=== PATIENT | female | born 1955 | race Caucasian/White ===

== ENCOUNTER 2016-12-29 12:51 | Inpatient (IN) | payer MEDICARE, OTHER ==
[~2016-12-29] VITALS: Ht 152.4 cm; Wt 62.4 kg
[2016-12-29] MEDS ORDERED: FAMOTIDINE 20 MG INJ IV STA (13:23)
[2016-12-29] MEDS ORDERED: SOD CHLORIDE 0.9% 1,000 ML IV STA (13:23)
[2016-12-29] MEDS ORDERED: KETOROLAC 30 MG INJ IV STA (13:23)
[2016-12-29] MEDS ORDERED: ONDANSETRON 4 MG INJ IV STA (13:23)
[2016-12-29 13:32] LABS: ADD SCAN DIFF NO
[2016-12-29 13:34] LABS: ABNORMAL IP MESSAGE 1; BASOPHILS % 0.2 % (0.0-2.0); HEMATOCRIT 33.8 % (37.0-47.0); HEMOGLOBIN 10.7 g/dl (12.0-16.0); LYMPHOCYTES # 1.1 10^3/ul (0.8-2.9); MEAN CORPUSCULAR HEMOGLOBIN 28.5 pg (29.0-33.0); MEAN CORPUSCULAR HGB CONC 31.7 g/dl (32.0-37.0); MEAN CORPUSCULAR VOLUME 89.9 fl (82.0-101.0); MEAN PLATELET VOLUME 10.8 fl (7.4-10.4); MONOCYTE # 0.7 10^3/ul (0.3-0.9); MONOCYTES % 3.1 % (0.0-11.0); NEUTROPHIL # 17.6 10^3/ul (1.6-7.5); NEUTROPHILS % 84.7 % (39.0-77.0); PLATELET COUNT 213 10^3/UL (140-415); RED BLOOD COUNT 3.76 10^6/ul (4.20-5.40); RED CELL DISTRIBUTION WIDTH 14.5 % (11.5-14.5); WHITE BLOOD COUNT 20.9 10^3/ul (4.8-10.8)
[2016-12-29 13:52] LABS: ALBUMIN 3.8 g/dl (3.3-4.9); ALBUMIN/GLOBULIN RATIO 1.05; CALCIUM 8.7 mg/dl (8.4-10.2); CREATININE 2.73 mg/dl (0.44-1.00); TOTAL PROTEIN 7.4 g/dl (6.1-8.1)
[2016-12-29 13:55] LABS: POTASSIUM 5.1 mmol/L (3.5-5.1)
[2016-12-29] MEDS ORDERED: SIMV40TA2 PO (14:09)
[2016-12-29] MEDS ORDERED: PROM25TA14 PO (14:10)
[2016-12-29] MEDS ORDERED: OMEP20CA16 PO (14:10)
[2016-12-29 15:24] LABS: ADD UMIC YES; URINE BILIRUBIN (Dip) NEGATIVE (NEGATIVE); URINE BLOOD (Dip) NEGATIVE (NEGATIVE); URINE COLOR YELLOW (YELLOW); URINE GLUCOSE (Dip) NEGATIVE (NEGATIVE); URINE KETONES (Dip) NEGATIVE (NEGATIVE); URINE LEUKOCYTE ESTERASE (Dip) NEGATIVE (NEGATIVE); URINE NITRITE (Dip) NEGATIVE (NEGATIVE); URINE TOTAL PROTEIN (Dip) 1+ (NEGATIVE); URINE UROBILINOGEN (Dip) 0.2 E.U./dL (0.1-1.0)
[2016-12-29 15:55] LABS: URINE RBCS NONE SEEN /HPF (0)
[2016-12-29] MEDS ORDERED: CEFTRIAXONE 1 GM/50 ML (PMX) 50 ML IVPB ONE (16:00)
--- NOTE | 2016-12-29 16:02 | RADRPT ---
PROCEDURE: CT Abdomen and Pelvis without contrast CLINICAL INDICATION: Right flank pain TECHNIQUE: Transaxial images were obtained through the abdomen and pelvis on a multi-slice scanner without the intravenous contrast administration. No oral contrast had previously been given. Sagit debra and coronal re-formations were subsequently reconstructed. One or more of the following dose reduction techniques were used: - Automated exposure control. - Adjustment of the mA and/or kV according to patient size. - Use of iterative reconstruction technique. Radiation dose: CTDIvol = 7.11 mGy; DLP = 401.36 mGy-cm. COMPARISON: No prior studies are available for comparison. FINDINGS: Lung bases: Discoid atelectatic changes seen at both lung bases. Liver: The liver is borderline enlarged but no focal lesion is identified. Gallbladder: The gallbladder is distended. A small stone is seen a gravity 8 within the gallbladder . The gallbladder wall appears mildly thickened. Bile ducts: The common bile duct is dilated to 1.1 cm through the head of the pancreas. No choledoc holith is identified Pancreas: Appears normal with no mass or inflammation evident. Spleen: Normal in size with no focal lesion. Adrenals: Normal with no mass identified. Kidneys, ureters and bladder: The right kidney is quite small without hydronephrosis or intra renal calcification. Two 2 mm nonobstructing nephroliths are seen in the superior pole right kidney and t he kidney is lobulated in contour compatible with cortical scarring but there is no hydronephrosis. The ureters are normal in caliber and no ureteroliths are identified. The bladder is suboptimally di stended giving the wall a mildly thickened appearance. Reproductive organs: The uterus is absent. No adnexal mass is evident. Stomach and bowel: There is a small hiatal hernia. Surgical clips are seen in the region of the sto mach. There is no evidence of small bowel obstruction. Substantial stool is seen within the colon. There is dilatation of the cecum and ascending colon as well as the proximal transverse colon with thickening of the bowel wall along with intramural air identified. Appendix: The vermiform appendix is not identified. Peritoneum: There is considerable stranding within the omentum in the region of the hepatic flexure of the colon and gallbladder. No free intraperitoneal fluid or air is identified. Aorta: There is atherosclerotic vascular calcification but no abdominal aortic aneurysm is evident. IVC: Unremarkable. Lymph nodes: No pathologically enlarged nodes are identified. Osseous structures: The osseous elements appear intact. A 5 mm central posterior disk protrusion is seen at L5-S1. IMPRESSION: 1. There is stool distension of the cecum, ascending and proximal transverse colon with bowel wall thickening at the hepatic flexure and proximal transverse colon with intramural air. Differential p ossibilities include ischemic bowel as well as a benign etiologies. No portal air is identified. Cl inical correlation is indicated. There is no evidence of bowel obstruction. There is a hiatal herni a and evidence of previous gastric surgery. 2. The gallbladder is distended, there is cholelithiasis in the gallbladder wall appears thickened r aising the possibility of cholecystitis. 3. The common bile duct is dilated to 1.1 cm through the head of the pancreas. No choledocholith i s evident and no pancreatic pathology is noted. 4. Extensive stranding seen to the omentum in the region of the hepatic flexure and gallbladder com patible with edema and inflammatory change. 5. There is no free intraperitoneal fluid or air. 6. Atrophic right kidney without hydronephrosis. The left kidney is normal in size with cortical s carring and with two 2 mm nonobstructing nephroliths within the superior pole. There is no hydronep hrosis. 7. Borderline hepatomegaly 8. 5 mm central posterior disk protrusion at L5-S1. Findings of right colonic bowel wall thickening with intramural air for which ischemia cannot be exc luded along with possible cholecystitis were telephoned by Robby Montoya MD to Dr. Panda on 12/13 at 1550 hours. Physician Tung Date Time Electronically viewed and signed by Physician Tung on 12/29/2016 16:01 /
[2016-12-29] MEDS ORDERED: IODIXANOL LOCM 50 ML BTL ONE (16:06)
[2016-12-29] MEDS ORDERED: SOD CHLORIDE 0.9% 100 ML ONE (16:06)
[2016-12-29] MEDS ORDERED: IODIXANOL LOCM 100 ML BTL ONE (16:06)
[2016-12-29] MEDS ORDERED: morphine 10 MG INJ IV ONE (16:30)
[2016-12-29] MEDS ORDERED: SODIUM CHLORIDE 0.9% 1L BAG IV* STA (17:08)
--- NOTE | 2016-12-29 17:13 | RADRPT ---
PROCEDURE: CT angiogram of the abdomen and pelvis with bilateral lower extremity runoff and with 3 -D reconstructions CLINICAL INDICATION: r/o ischemic colitis TECHNIQUE: CT angiogram of the abdomen and pelvis was performed on a multislice CT scanner . The patient was scanned after administration of intravenous contrast. Sagittal and coronal reformatted images were obtained from the axial source images. 3D MIP reformatted images were also created from the axial source images. DLP 785.95 mGycm CTDI vol 7.62, 7.66 mGy COMPARISON: CT abdomen/pelvis from 12/29/2016 at 15:22 hours FINDINGS: ANGIOGRAM FINDINGS: There is no acute dissection or aneurysm of the abdominal aorta. The celiac, SMA, and ANYA are widely patent. The right renal artery is widely patent. There is moderate to severe narrowing of the proximal left renal artery. Common, internal and external iliac arteries are patent bilaterally. RIGHT LOWER EXTREMITY: The [employer]PARTMENT, SFA, and profunda arteries are widely patent. The popliteal artery is widely patent. Infrapopliteal vessels are widely patent and there is good three-vessel runoff to the level of the a nkle. LEFT LOWER EXTREMITY: The [employer] DEPARTMENT, SFA, and profunda arteries are widely patent. The popliteal artery is widely patent. Infrapopliteal vessels are widely patent and there is good three-vessel runoff to the level of the a nkle. ANCILLARY FINDINGS: There is a small hiatal hernia. Surgical changes are noted at the gastroesophageal junction. The gallbladder is again noted to be distended and demonstrate wall thickening. There is prominent m esenteric stranding just below the inferior extent of the gallbladder, adjacent to the proximal bauer sverse colon The common bile duct is dilated to 14 mm and terminates abruptly at the pancreatic hea d. There is mild intrahepatic biliary ductal dilatation. There are colonic diverticula without evidence of diverticulitis. IMPRESSION: The celiac, SMA, and ANYA are widely patent. No evidence of mesenteric ischemia. Markedly dilated common bile duct measuring up to 14 mm in diameter which abruptly terminates at the pancreatic head. There is also mild intrahepatic biliary ductal dilatation as well as marked diste nsion of the gallbladder. Findings suggest an obstructing lesion at the distal common bile duct whi ch may be a choledocholith, pancreatic lesion, or an ampullary lesion. An MRCP is recommended for f urther evaluation. Small hiatal hernia and postsurgical changes at the gastroesophageal junction. Colonic diverticula without evidence of diverticulitis. RPTAT: EE Perfecto Ritchie Physician Date Time Electronically viewed and signed by Perfecto Ritchie Physician on 12/29/2016 17:13 /
--- NOTE | 2016-12-29 17:50 | RADRPT ---
PROCEDURE: US Abdomen (right upper quadrant). CLINICAL INDICATION: Right upper quadrant abdomen pain. TECHNIQUE: Multiple real-time longitudinal and transverse images of the right upper quadrant of th e abdomen were acquired utilizing a curved array transducer. Images were reviewed on a high-resoluti on PACS workstation. COMPARISON: CT scan of the abdomen and pelvis done earlier the same day. FINDINGS: The liver is normal in size and normal in echogenicity. There is no focal hepatic lesion. Color Doppler and pulsed Doppler sonography demonstrate normal a ntegrade flow in the portal vein. The gallbladder is distended and there is mild thickening of the wall measuring 4 mm. There is no s urrounding fluid. No gallstones are visualized. The bile ducts are dilated with the common bile duct measuring 14.5 mm in diameter. The pancreas is not visualized due to overlying bowel gas. No free fluid is present. The right kidney is not visualized. IMPRESSION: 1. Distended gallbladder with mild wall thickening. No gallstones. This may indicate acalculous c holecystitis. Clinical correlation is advised. 2. Pancreas not visualized. 3. Dilated common bile duct measuring 14.5 mm. Correlation with MRCP should be considered. 4. Right kidney not visualized. RPTAT: QQ .Azeem Bergman MD, Date Time Electronically viewed and signed by .Azeem Bergman MD, on 12/29/2016 17:49 .R/
--- NOTE | 2016-12-29 18:00 | RADRPT ---
PROCEDURE: XR Chest 1 View. CLINICAL INDICATION: Shortness of breath. TECHNIQUE: AP view of the chest was obtained. COMPARISON: None. FINDINGS: The cardiomediastinal silhouette is within normal limits. Elevation of the right hemidiaphragm is id entified. Diffuse mild interstitial prominence is seen in both lungs. Atelectasis is noted at the lung bases. No consolidations are identified. No pneumothorax is seen. Osseous structures are inta ct. IMPRESSION: Mild elevation of the right hemidiaphragm. Hypoinflated lungs with atelectasis at the lung bases. Diffuse mild interstitial prominence in both lungs. Interstitial prominence could be chronic. RPTAT: AA .Claude Zapata MD, Date Time Electronically viewed and signed by .Claude Zapata MD, MD on 12/29/2016 18:00 .P/
[2016-12-29] MEDS ORDERED: SOD CHLORIDE 0.9% 1,000 ML IV SCH (18:04)
--- NOTE | 2016-12-29 18:14 | ERA ---
ER Documentation Chief Complaint Date/Time DATE: 12/29/16 TIME: 18:08 Chief Complaint RUQ PAIN WITH RADIATING PAIN TO THE MID-ABD AREA, +SOB&N&V HPI This is a 61-year-old female who presents to the emergency room for evaluation of abdominal pain. The patient states that she is on abdominal pain for the past 2 days this is progressively gotten worse today. She states that she has been feeling nauseous and has had 2 episodes of vomiting. Patient localized the pain to the right flank and states it is an aching sharp pain with radiation into her groin. The patient does state that she has a history of gallstones, and states that she came to the emergency room today for evaluation of her symptoms. She denies any aggravating or relieving factors for her pain and denies any vomiting blood, or blood in the stool ROS All systems reviewed and are negative except as per history of present illness. Medications Home Meds Reported Medications Promethazine Hcl* (Phenergan*) 25 Mg Tablet, 25 MG PO Q6H Y for NAUSEA AND/OR VOMITING, TAB 12/29/16 Omeprazole* (Omeprazole*) 20 Mg Capsule.dr, 20 MG PO DAILY, #30 CAP 12/29/16 Simvastatin* (Zocor*) 40 Mg Tablet, 40 MG PO QHS, #30 TAB 12/29/16 Allergies Allergies: Coded Allergies: Penicillins (Verified Allergy, Unknown, 12/29/16) diphenhydramine (Verified Allergy, Unknown, 12/29/16) tamsulosin (Verified Allergy, Unknown, 12/29/16) PMhx/Soc History of Surgery: Yes (BACK, NECK, APPY) Hx Miscellaneous Medical Probl: Yes (KIDNEY, GALLBLADDER) Hx Alcohol Use: No Hx Substance Use: No Hx Tobacco Use: Yes Smoking Status: Current every day smoker Physical Exam Vitals Vital Signs Date Time Temp Pulse Resp B/P Pulse Ox O2 Delivery O2 Flow Rate FiO2 12/29/16 13:02 97.5 86 20 112/56 100 Physical Exam INITIAL VITAL SIGNS: Reviewed by me GENERAL: The patient is frail-appearing elderly female, mild distress HEENT: Dry mucous membranes, pupils equal, round, and reactive to light. EOMI. There is no scleral icterus. NECK: C-spine is soft and supple, there is no meningismus. There is no cervical lymphadenopathy. LUNGS: Clear to auscultation bilaterally. There are no rales, wheezes or rhonchi. HEART: Regular rate and rhythm, no murmurs, clicks, rubs or gallops. ABDOMEN: Positive Villarreal sign there are bowel sounds in all four quadrants. No rebound or guarding. EXTREMITIES: There is no peripheral cyanosis or edema. No focal swelling or erythema. NEUROLOGICAL: The patient moves all four extremities with 5/5 strength. Cranial nerves II - XII are intact. Normal gait. Alert and oriented SKIN: There is no apparent rash or petechiae. HEME/LYMPHATIC: There is no evidence of excessive bruising or lymphedema. PSYCHIATRIC: The patient does not appear anxious or depressed. Result Diagram: 12/29/16 1327 12/29/16 1327 Results 24 hrs Laboratory Tests Test 12/29/16 13:27 12/29/16 15:00 White Blood Count 20.910^3/ul Red Blood Count 3.7610^6/ul Hemoglobin 10.7g/dl Hematocrit 33.8% Mean Corpuscular Volume 89.9fl Mean Corpuscular Hemoglobin 28.5pg Mean Corpuscular Hemoglobin Concent 31.7g/dl Red Cell Distribution Width 14.5% Platelet Count 23766^3/UL Mean Platelet Volume 10.8fl Neutrophils % 84.7% Lymphocytes % 5.0% Monocytes % 3.1% Eosinophils % 0.0% Basophils % 0.2% Nucleated Red Blood Cells % 0.0/100WBC Neutrophils # 17.610^3/ul Lymphocytes # 1.110^3/ul Monocytes # 0.710^3/ul Eosinophils # 0.010^3/ul Basophils # 0.010^3/ul Nucleated Red Blood Cells # 0.010^3/ul Sodium Level 133mmol/L Potassium Level 5.1mmol/L Chloride Level 104mmol/L Carbon Dioxide Level 16mmol/L Anion Gap 18 Blood Urea Nitrogen 63mg/dl Creatinine 2.73mg/dl Glucose Level 91mg/dl Calcium Level 8.7mg/dl Total Bilirubin 0.0mg/dl Direct Bilirubin 0.00mg/dl Indirect Bilirubin 0.0mg/dl Aspartate Amino Transf (AST/SGOT) 42IU/L Alanine Aminotransferase (ALT/SGPT) 45IU/L Alkaline Phosphatase 215IU/L Total Protein 7.4g/dl Albumin 3.8g/dl Globulin 3.60g/dl Albumin/Globulin Ratio 1.05 Lipase 78U/L Urine Color YELLOW Urine Clarity CLEAR Urine pH 5.5 Urine Specific [place] 1.020 Urine Ketones NEGATIVE Urine Nitrite NEGATIVE Urine Bilirubin NEGATIVE Urine Urobilinogen 0.2 E.U./dL Urine Leukocyte Esterase NEGATIVE Urine Microscopic RBC NONE SEEN/HPF Urine Microscopic WBC 0-2/HPF Urine Amorphous Urates MODERATE Urine Hemoglobin NEGATIVE Urine Glucose NEGATIVE% Urine Total Protein 1+ Current Medications Medications (Trade) Dose Ordered Sig/Michelle Route PRN Reason Start Time Stop Time Status Last Admin Dose Admin Sodium Chloride (NS) 1,000 ml @ 1,000 mls/hr Q1H STAT IV 12/29/16 13:23 12/29/16 14:22 DC 12/29/16 13:31 Ondansetron HCl (Zofran Inj) 4 mg ONCE STAT IV 12/29/16 13:23 12/29/16 13:24 DC 12/29/16 13:31 Famotidine (Pepcid Iv) 20 mg ONCE STAT IV 12/29/16 13:23 12/29/16 13:24 DC 12/29/16 13:31 Ketorolac Tromethamine 30 mg 30 mg ONCE STAT IV 12/29/16 13:23 12/29/16 13:24 DC 12/29/16 13:31 Ceftriaxone Sodium (Rocephin) 50 ml @ 100 mls/hr ONCE ONCE IVPB 12/29/16 16:00 12/29/16 16:29 DC 12/29/16 15:45 Morphine Sulfate (morphine) 6 mg ONCE ONCE IV 12/29/16 16:30 12/29/16 16:31 DC 12/29/16 16:08 IV Flush 10 ml 10 ml STK-MED ONCE .ROUTE 12/29/16 16:06 12/29/16 16:07 DC 12/29/16 16:32 Sodium Chloride (NS) 100 ml @ ud STK-MED ONCE .ROUTE 12/29/16 16:06 12/29/16 16:07 DC 12/29/16 16:33 Iodixanol (Visipaque Locm) 100 ml STK-MED ONCE .ROUTE 12/29/16 16:06 12/29/16 16:07 DC 5/17/17 16:34 Iodixanol (Visipaque Locm) 50 ml STK-MED ONCE .ROUTE 12/29/16 16:06 12/29/16 16:07 DC Sodium Chloride 1760 ml 1,760 ml BOLUS OVER 2 HOURS STAT IV* 12/29/16 17:08 12/29/16 17:10 DC Metronidazole 100 ml @ 100 mls/hr ONCE ONCE IVPB 12/29/16 18:30 12/29/16 19:29 Sodium Chloride (NS) 1,000 ml @ 80 mls/hr [id number] IV 12/29/16 18:04 12/30/16 06:33 Ondansetron HCl (Zofran Inj) 4 mg BRIDGE ORDER PRN IV NAUSEA AND/OR VOMITING 12/29/16 18:30 12/30/16 18:29 Acetaminophen (Tylenol Tab) 650 mg ER BRIDGE PRN PO MILD PAIN/FEVER 12/29/16 18:30 12/30/16 18:29 Procedures/MDM CT abdomen pelvis without: 1. There is stool distension of the cecum, ascending and proximal transverse colon with bowel wall thickening at the hepatic flexure and proximal transverse colon with intramural air. Differential possibilities include ischemic bowel as well as a benign etiologies. No portal air is identified. Clinical correlation is indicated. There is no evidence of bowel obstruction. There is a hiatal hernia and evidence of previous gastric surgery. 2. The gallbladder is distended, there is cholelithiasis in the gallbladder wall appears thickened raising the possibility of cholecystitis. 3. The common bile duct is dilated to 1.1 cm through the head of the pancreas. No choledocholith is evident and no pancreatic pathology is noted. 4. Extensive stranding seen to the omentum in the region of the hepatic flexure and gallbladder compatible with edema and inflammatory change. 5. There is no free intraperitoneal fluid or air. 6. Atrophic right kidney without hydronephrosis. The left kidney is normal in size with cortical scarring and with two 2 mm nonobstructing nephroliths within the superior pole. There is no hydronephrosis. 7. Borderline hepatomegaly 8. 5 mm central posterior disk protrusion at L5-S1. CT angiography:The celiac, SMA, and ANYA are widely patent. No evidence of mesenteric ischemia. Markedly dilated common bile duct measuring up to 14 mm in diameter which abruptly terminates at the pancreatic head. There is also mild intrahepatic biliary ductal dilatation as well as marked distension of the gallbladder. Findings suggest an obstructing lesion at the distal common bile duct which may be a choledocholith, pancreatic lesion, or an ampullary lesion. An MRCP is recommended for further evaluation. Small hiatal hernia and postsurgical changes at the gastroesophageal junction. Colonic diverticula without evidence of diverticulitis. Chest X-ray 1V Interpreted by me: Soft Tissue: No acute abnormalities Bones: No acute abnormalities Mediastinum/Cardiac Silhouette/Lungs: [No acute abnormalities] Ultrasound gallbladder: 1. Distended gallbladder with mild wall thickening. No gallstones. This may indicate acalculous cholecystitis. Clinical correlation is advised. 2. Pancreas not visualized. 3. Dilated common bile duct measuring 14.5 mm. Correlation with MRCP should be considered. 4. Right kidney not visualized. This is a 61-year-old female who presents to the emergency room for evaluation of abdominal pain. When I evaluated her this patient did have right-sided CVAT and a positive Villarreal sign. A CT of the abdomen and pelvis was obtained with some concern for possible intramural air, and gallbladder wall thickening. CT Martina was obtained to rule out ischemic colitis and CT angiography does not reveal any intraluminal air or ischemic colitis. Ultrasound did confirm suspicion of choledocholithiasis with a dilation of the common bile duct. The patient does have a leukocytosis and mild tachycardia and does meet sepsis criteria. She was given 30 cc/kg of IV normal saline. She was started on Rocephin early as we were waiting for blood cultures, and her 3 hour chris was approaching. The patient had blood cultures done and was started on Flagyl as well. I have contacted our general surgeon, Dr. Johnson who agrees to consult on this patient. I contacted her primary admitting physician, Dr. Champion and have discussed the case with her and need for possible ERCP. She verbalized understanding and is okay with her plan of care for admission to [facility] at this time. This patient is hemodynamically stable and does not need vasopressors. Critical Care: Excluding all billable procedures Time: 34 minutes Treatments/Evaluations: Close monitoring and treatment of unstable vital signs, cardiorespiratory, and neurologic status, while maintaining tight balance of fluid, respiratory, and cardiac interventions. Departure Diagnosis: Primary Impression: Sepsis Additional Impressions: Choledocholithiasis with acute cholecystitis Renal insufficiency Normocytic anemia Condition: Fair VIVIANA LONG DO December 29, 2016 18:14
[2016-12-29] MEDS ORDERED: ACETAMINOPHEN 325 MG TAB PO PRN (18:30)
[2016-12-29] MEDS ORDERED: ONDANSETRON 4 MG INJ IV PRN (18:30)
[2016-12-29] MEDS ORDERED: metroNIDAZOLE 500 MG/NS (PMX) 100 ML IVPB ONE (18:30)
--- NOTE | 2016-12-29 18:37 | HP ---
Date/Time of Note Date/Time of Note DATE: 12/29/16 TIME: 18:21 Assessment/Plan VTE Prophylaxis VTE Prophylaxis Intervention: SCD's Assessment/Plan Assessment/Plan 61-year-old female who presents to the ER with right-sided abdominal pain, managed as follows 1. Cholelithiasis with choledocholithiasis 2. Acute renal failure rule out chronic kidney disease 3. Leukocytosis secondary to #1 rule out acute cholecystitis 4. Tobacco user Plan: 1 Admit to [facility], MRCP is not indicated at this time as we have CT confirmation of choledocholithiasis, I believe patient should proceed with ERCP. We will get GI consultation 2. General surgical consultation has been obtained by ER 3. Empiric antibiotics for cholecystitis 4. Smoking Cessation Therapy: Pt. was lectured for greater than 3 minutes on the health risks of continued smoking and the benefits of cessation and this will continue to be reinforced throughout hospitalization. 5. Supportive care and pain control. Plan of care has been discussed with patient questions answered. Further interventions per clinical course. Prophylaxis: SCDs and PPI HPI/ROS Admit Date/Time Admit Date/Time December 29, 2016 Hx of Present Illness PRESENTING COMPLAINT: abd pain HISTORY OF PRESENTING COMPLAINT: This is a pleasant 61-year-old female who presents to the ER today with abdominal pain. Pain is located in the epigastric region that has been going on for the last 2 days. Pain is associated with nausea and vomiting, and described as an aching and sharp pain. Patient does have a history of gallstones and she might have a history of renal problems. Pain was relieved by medications given in the emergency room. Patient was worked up extensively by ER doctor, and findings are highly suggestive of cholelithiasis with choledocholithiasis. She is being admitted for further workup and management as well as gastroenterology as well as surgical review. ROS 12 point review of system was done and pertinent findings as noted ROS: CONSTITUTIONAL: denies fever, chills, weight loss, weight gain HEENT: denies headaches, any vertigo, any sore throat or rhinorrhea. Eyes: No double or blurred vision or eye pain. CARDIOVASCULAR: no chest discomfort, chest pain, irregular rhythm, tachycardia or diaphoresis. RESPIRATORY: denies cough or shortness of breath or wheezing. GENITOURINARY: denies dysuria, frequency, urgency or hematuria. MUSCULOSKELETAL: also denies myalgias, arthralgias or edema. SKIN: denies rash or jaundice NEUROLOGIC: denies weakness, dizziness, focal neurological change or headache. PSYCHIATRIC: denies history of depression in the past, any suicidal ideation. substance abuse. ENDOCRINE: denies polyuria, polydipsia or hot or cold intolerance. HEMATOLOGIC: denies history of easy bruising, anemia or eczema. PMH/Family/Social Past Medical History 1. Gallstones 2. Chronic kidney disease likely secondary to kidney stones Past Surgical History 1. Appendectomy 2. Hysterectomy Social History Alcohol Use: none Smoking Status: Current every day smoker Drug Use: none Exam/Review of Systems Vital Signs Vitals VS - Last 72 Hours, by Label Date Time Temp Pulse Resp B/P Pulse Ox O2 Delivery O2 Flow Rate FiO2 12/29/16 13:02 97.5 86 20 112/56 100 Vital Signs Date Time Temp Pulse Resp B/P Pulse Ox O2 Delivery O2 Flow Rate FiO2 12/29/16 13:02 97.5 86 20 112/56 100 Exam Constitutional: alert, oriented, No distress Psych: anxiety Head: normocephalic Eyes: nl conjunctiva, No icteric ENMT: mucosa pink and moist Neck: non-tender, supple Respiratory: clear to auscultation, normal air movement Cardiovascular: regular rate and rhythm, No murmurs/extra sounds Gastrointestinal: bowel sounds, soft, tender (RUQ and epigastrium) Neurological: lethargic, nl mental status Skin: No rash or lesions Labs Result Diagram: 12/29/16 1327 12/29/16 1327 Medications Medications Current Medications Metronidazole 100 ml @ 100 mls/hr ONCE ONCE IVPB ; Start 12/29/16 at 18:30; Stop 12/29/16 at 19:29 Sodium Chloride (NS) 1,000 ml @ 80 mls/hr [id number] IV ; Start 12/29/16 at 18:04 ; Stop 12/30/16 at 06:33 Procedures Procedures Laboratory Tests Test 12/29/16 13:27 12/29/16 15:00 White Blood Count 20.910^3/ul Red Blood Count 3.7610^6/ul Hemoglobin 10.7g/dl Hematocrit 33.8% Mean Corpuscular Volume 89.9fl Mean Corpuscular Hemoglobin 28.5pg Mean Corpuscular Hemoglobin Concent 31.7g/dl Red Cell Distribution Width 14.5% Platelet Count 35080^3/UL Mean Platelet Volume 10.8fl Neutrophils % 84.7% Lymphocytes % 5.0% Monocytes % 3.1% Eosinophils % 0.0% Basophils % 0.2% Nucleated Red Blood Cells % 0.0/100WBC Neutrophils # 17.610^3/ul Lymphocytes # 1.110^3/ul Monocytes # 0.710^3/ul Eosinophils # 0.010^3/ul Basophils # 0.010^3/ul Nucleated Red Blood Cells # 0.010^3/ul Sodium Level 133mmol/L Potassium Level 5.1mmol/L Chloride Level 104mmol/L Carbon Dioxide Level 16mmol/L Anion Gap 18 Blood Urea Nitrogen 63mg/dl Creatinine 2.73mg/dl Glucose Level 91mg/dl Calcium Level 8.7mg/dl Total Bilirubin 0.0mg/dl Direct Bilirubin 0.00mg/dl Indirect Bilirubin 0.0mg/dl Aspartate Amino Transf (AST/SGOT) 42IU/L Alanine Aminotransferase (ALT/SGPT) 45IU/L Alkaline Phosphatase 215IU/L Total Protein 7.4g/dl Albumin 3.8g/dl Globulin 3.60g/dl Albumin/Globulin Ratio 1.05 Lipase 78U/L Urine Color YELLOW Urine Clarity CLEAR Urine pH 5.5 Urine Specific [place] 1.020 Urine Ketones NEGATIVE Urine Nitrite NEGATIVE Urine Bilirubin NEGATIVE Urine Urobilinogen 0.2 E.U./dL Urine Leukocyte Esterase NEGATIVE Urine Microscopic RBC NONE SEEN/HPF Urine Microscopic WBC 0-2/HPF Urine Amorphous Urates MODERATE Urine Hemoglobin NEGATIVE Urine Glucose NEGATIVE% Urine Total Protein 1+ Current Medications Medications (Trade) Dose Ordered Sig/Michelle Route PRN Reason Start Time Stop Time Status Last Admin Dose Admin Sodium Chloride (NS) 1,000 ml @ 1,000 mls/hr Q1H STAT IV 12/29/16 13:23 12/29/16 14:22 DC 12/29/16 13:31 1,000 MLS/HR Ondansetron HCl (Zofran Inj) 4 mg ONCE STAT IV 12/29/16 13:23 12/29/16 13:24 DC 12/29/16 13:31 4 MG Famotidine (Pepcid Iv) 20 mg ONCE STAT IV 12/29/16 13:23 12/29/16 13:24 DC 12/29/16 13:31 20 MG Ketorolac Tromethamine 30 mg 30 mg ONCE STAT IV 12/29/16 13:23 12/29/16 13:24 DC 12/29/16 13:31 30 MG Ceftriaxone Sodium (Rocephin) 50 ml @ 100 mls/hr ONCE ONCE IVPB 12/29/16 16:00 12/29/16 16:29 DC 12/29/16 15:45 100 MLS/HR Morphine Sulfate (morphine) 6 mg ONCE ONCE IV 12/29/16 16:30 12/29/16 16:31 DC 12/29/16 16:08 6 MG IV Flush 10 ml 10 ml STK-MED ONCE .ROUTE 12/29/16 16:06 12/29/16 16:07 DC 12/29/16 16:32 10 ML Sodium Chloride (NS) 100 ml @ ud STK-MED ONCE .ROUTE 12/29/16 16:06 12/29/16 16:07 DC 12/29/16 16:33 50 ML/14 S Iodixanol (Visipaque Locm) 100 ml STK-MED ONCE .ROUTE 12/29/16 16:06 12/29/16 16:07 DC 12/29/16 16:34 100 ML Iodixanol (Visipaque Locm) 50 ml STK-MED ONCE .ROUTE 12/29/16 16:06 12/29/16 16:07 DC Sodium Chloride 1760 ml 1,760 ml BOLUS OVER 2 HOURS STAT IV* 12/29/16 17:08 12/29/16 17:10 DC Metronidazole 100 ml @ 100 mls/hr ONCE ONCE IVPB 12/29/16 18:30 12/29/16 19:29 Sodium Chloride (NS) 1,000 ml @ 80 mls/hr [id number] IV 12/29/16 18:04 12/30/16 06:33 Ondansetron HCl (Zofran Inj) 4 mg BRIDGE ORDER PRN IV NAUSEA AND/OR VOMITING 12/29/16 18:30 12/30/16 18:29 Acetaminophen (Tylenol Tab) 650 mg ER BRIDGE PRN PO MILD PAIN/FEVER 12/29/16 18:30 12/30/16 18:29 PROCEDURE: US Abdomen (right upper quadrant). CLINICAL INDICATION: Right upper quadrant abdomen pain. TECHNIQUE: Multiple real-time longitudinal and transverse images of the right upper quadrant of the abdomen were acquired utilizing a curved array transducer. Images were reviewed on a high-resolution PACS workstation. COMPARISON: CT scan of the abdomen and pelvis done earlier the same day. FINDINGS: The liver is normal in size and normal in echogenicity. There is no focal hepatic lesion. Color Doppler and pulsed Doppler sonography demonstrate normal antegrade flow in the portal vein. The gallbladder is distended and there is mild thickening of the wall measuring 4 mm. There is no surrounding fluid. No gallstones are visualized. The bile ducts are dilated with the common bile duct measuring 14.5 mm in diameter. The pancreas is not visualized due to overlying bowel gas. No free fluid is present. The right kidney is not visualized. IMPRESSION: 1. Distended gallbladder with mild wall thickening. No gallstones. This may indicate acalculous cholecystitis. Clinical correlation is advised. 2. Pancreas not visualized. 3. Dilated common bile duct measuring 14.5 mm. Correlation with MRCP should be considered. 4. Right kidney not visualized. RPTAT: QQ .Azeem Bergman MD, MD Date Time Electronically viewed and signed by .Azeem Bergman MD, MD on 12/29/2016 17:49 .R/ CC: VIVIANA LONG DO PROCEDURE: CT angiogram of the abdomen and pelvis with bilateral lower extremity runoff and with 3-D reconstructions CLINICAL INDICATION: r/o ischemic colitis TECHNIQUE: CT angiogram of the abdomen and pelvis was performed on a multislice CT scanner . The patient was scanned after administration of intravenous contrast. Sagittal and coronal reformatted images were obtained from the axial source images. 3D MIP reformatted images were also created from the axial source images. DLP 785.95 mGycm CTDI vol 7.62, 7.66 mGy COMPARISON: CT abdomen/pelvis from 12/29/2016 at 15:22 hours FINDINGS: ANGIOGRAM FINDINGS: There is no acute dissection or aneurysm of the abdominal aorta. The celiac, SMA, and ANYA are widely patent. The right renal artery is widely patent. There is moderate to severe narrowing of the proximal left renal artery. Common, internal and external iliac arteries are patent bilaterally. RIGHT LOWER EXTREMITY: The [employer], SFA, and profunda arteries are widely patent. The popliteal artery is widely patent. Infrapopliteal vessels are widely patent and there is good three-vessel runoff to the level of the ankle. LEFT LOWER EXTREMITY: The [employer], SFA, and profunda arteries are widely patent. The popliteal artery is widely patent. Infrapopliteal vessels are widely patent and there is good three-vessel runoff to the level of the ankle. ANCILLARY FINDINGS: There is a small hiatal hernia. Surgical changes are noted at the gastroesophageal junction. The gallbladder is again noted to be distended and demonstrate wall thickening. There is prominent mesenteric stranding just below the inferior extent of the gallbladder, adjacent to the proximal transverse colon The common bile duct is dilated to 14 mm and terminates abruptly at the pancreatic head. There is mild intrahepatic biliary ductal dilatation. There are colonic diverticula without evidence of diverticulitis. IMPRESSION: The celiac, SMA, and ANYA are widely patent. No evidence of mesenteric ischemia. Markedly dilated common bile duct measuring up to 14 mm in diameter which abruptly terminates at the pancreatic head. There is also mild intrahepatic biliary ductal dilatation as well as marked distension of the gallbladder. Findings suggest an obstructing lesion at the distal common bile duct which may be a choledocholith, pancreatic lesion, or an ampullary lesion. An MRCP is recommended for further evaluation. Small hiatal hernia and postsurgical changes at the gastroesophageal junction. Colonic diverticula without evidence of diverticulitis. RPTAT: EE Physician David Date Time Electronically viewed and signed by Physician David on 12/29/2016 17:13 RA/ PROCEDURE: CT Abdomen and Pelvis without contrast CLINICAL INDICATION: Right flank pain TECHNIQUE: Transaxial images were obtained through the abdomen and pelvis on a multi-slice scanner without the intravenous contrast administration. No oral contrast had previously been given. Sagittal and coronal re-formations were subsequently reconstructed. One or more of the following dose reduction techniques were used: - Automated exposure control. - Adjustment of the mA and/or kV according to patient size. - Use of iterative reconstruction technique. Radiation dose: CTDIvol = 7.11 mGy; DLP = 401.36 mGy-cm. COMPARISON: No prior studies are available for comparison. FINDINGS: Lung bases: Discoid atelectatic changes seen at both lung bases. Liver: The liver is borderline enlarged but no focal lesion is identified. Gallbladder: The gallbladder is distended. A small stone is seen a gravity 8 within the gallbladder. The gallbladder wall appears mildly thickened. Bile ducts: The common bile duct is dilated to 1.1 cm through the head of the pancreas. No choledocholith is identified Pancreas: Appears normal with no mass or inflammation evident. Spleen: Normal in size with no focal lesion. Adrenals: Normal with no mass identified. Kidneys, ureters and bladder: The right kidney is quite small without hydronephrosis or intra renal calcification. Two 2 mm nonobstructing nephroliths are seen in the superior pole right kidney and the kidney is lobulated in contour compatible with cortical scarring but there is no hydronephrosis. The ureters are normal in caliber and no ureteroliths are identified. The bladder is suboptimally distended giving the wall a mildly thickened appearance. Reproductive organs: The uterus is absent. No adnexal mass is evident. Stomach and bowel: There is a small hiatal hernia. Surgical clips are seen in the region of the stomach. There is no evidence of small bowel obstruction. Substantial stool is seen within the colon. There is dilatation of the cecum and ascending colon as well as the proximal transverse colon with thickening of the bowel wall along with intramural air identified. Appendix: The vermiform appendix is not identified. Peritoneum: There is considerable stranding within the omentum in the region of the hepatic flexure of the colon and gallbladder. No free intraperitoneal fluid or air is identified. Aorta: There is atherosclerotic vascular calcification but no abdominal aortic aneurysm is evident. IVC: Unremarkable. Lymph nodes: No pathologically enlarged nodes are identified. Osseous structures: The osseous elements appear intact. A 5 mm central posterior disk protrusion is seen at L5-S1. IMPRESSION: 1. There is stool distension of the cecum, ascending and proximal transverse colon with bowel wall thickening at the hepatic flexure and proximal transverse colon with intramural air. Differential possibilities include ischemic bowel as well as a benign etiologies. No portal air is identified. Clinical correlation is indicated. There is no evidence of bowel obstruction. There is a hiatal hernia and evidence of previous gastric surgery. 2. The gallbladder is distended, there is cholelithiasis in the gallbladder wall appears thickened raising the possibility of cholecystitis. 3. The common bile duct is dilated to 1.1 cm through the head of the pancreas. No choledocholith is evident and no pancreatic pathology is noted. 4. Extensive stranding seen to the omentum in the region of the hepatic flexure and gallbladder compatible with edema and inflammatory change. 5. There is no free intraperitoneal fluid or air. 6. Atrophic right kidney without hydronephrosis. The left kidney is normal in size with cortical scarring and with two 2 mm nonobstructing nephroliths within the superior pole. There is no hydronephrosis. 7. Borderline hepatomegaly 8. 5 mm central posterior disk protrusion at L5-S1. Findings of right colonic bowel wall thickening with intramural air for which ischemia cannot be excluded along with possible cholecystitis were telephoned by Robby Montoya MD to Dr. Long on 12/29/2016 at 1550 hours. Physician Tung Date Time Electronically viewed and signed by Physician Tung on 12/29/2016 16:01 RH/ CC: VIVIANA LONG BOLATITO M. December 29, 2016 18:32
[2016-12-29 19:30] VITALS: TEMP 98.2
[2016-12-29 19:35] LABS: INR 1.17; PARTIAL THROMBOPLASTIN TIME 41.9 Sec (25.0-35.0); PT RATIO 1.2
[2016-12-29 20:04] VITALS: BP 118/64; RESP 20
[2016-12-29 20:12] VITALS: Ht 152.4 cm; Wt 62.4 kg
[2016-12-29] MEDS: CIPROFLOXACIN 400MG/D5W 200 ML IVPB SCH (20:38)
[2016-12-29] MEDS: DEXTROSE 5%-0.45% NACL 1,000 ML IV SCH (20:38)
[2016-12-29] MEDS: FAMOTIDINE 20 MG TAB PO SCH (20:39)
[2016-12-29] MEDS: DOCUSATE SODIUM 100 MG CAP PO SCH (20:39)
[2016-12-29] MEDS: metroNIDAZOLE 500 MG/NS (PMX) 100 ML IVPB SCH (23:18)
[2016-12-30] MEDS: ALBUTEROL/IPRATROPIUM (NEB) 3 ML AMP HHN PRN ×3 (03:32→18:20)
[2016-12-30] MEDS: metroNIDAZOLE 500 MG/NS (PMX) 100 ML IVPB SCH ×3 (05:14→21:04)
[2016-12-30] MEDS: morphine 2 MG INJ IV PRN ×3 (05:15→16:29)
[2016-12-30] MEDS: DEXTROSE 5%-0.45% NACL 1,000 ML IV SCH (05:18)
[2016-12-30 07:22] VITALS: BP 100/58; RESP 18
[2016-12-30 08:21] LABS: ADD SCAN DIFF NO
[2016-12-30] MEDS: DOCUSATE SODIUM 100 MG CAP PO SCH ×2 (08:24→21:03)
[2016-12-30 08:42] LABS: ABNORMAL IP MESSAGE 1; HEMATOCRIT 29.9 % (37.0-47.0); HEMOGLOBIN 9.3 g/dl (12.0-16.0); MEAN CORPUSCULAR HEMOGLOBIN 28.1 pg (29.0-33.0); MEAN CORPUSCULAR HGB CONC 31.1 g/dl (32.0-37.0); MEAN CORPUSCULAR VOLUME 90.3 fl (82.0-101.0); MEAN PLATELET VOLUME 10.6 fl (7.4-10.4); PLATELET COUNT 191 10^3/UL (140-415); RED BLOOD COUNT 3.31 10^6/ul (4.20-5.40); RED CELL DISTRIBUTION WIDTH 14.7 % (11.5-14.5); WHITE BLOOD COUNT 12.1 10^3/ul (4.8-10.8)
[2016-12-30 09:02] LABS: ALBUMIN 2.6 g/dl (3.3-4.9)
[2016-12-30 09:03] LABS: POTASSIUM 5.1 mmol/L (3.5-5.1)
[2016-12-30 09:05] LABS: ALBUMIN/GLOBULIN RATIO 0.86; CREATININE 2.57 mg/dl (0.44-1.00); TOTAL PROTEIN 5.6 g/dl (6.1-8.1)
[2016-12-30 09:06] LABS: CALCIUM 7.9 mg/dl (8.4-10.2); MAGNESIUM 2.6 mg/dl (1.7-2.5); PHOSPHORUS 6.1 mg/dl (2.5-4.9); URIC ACID 6.2 mg/dl (3.1-7.9)
[2016-12-30 09:07] LABS: CHOL/HDL RATIO 2.1 RATIO
[2016-12-30 10:15] LABS: LYMPHOCYTES # 0.8 10^3/ul (0.8-2.9); MONOCYTE # 0.6 10^3/ul (0.3-0.9)
--- NOTE | 2016-12-30 11:14 | PN ---
DATE: 12/29/2016 SUBJECTIVE DATA: Complains of abdominal pain. Denies any nausea or vomiting. OBJECTIVE DATA: VITAL SIGNS: Temperature 98.5, pulse rate 87, respiratory rate 18, blood pressure 100/58, oxygen saturation 95% on low-flow O2. GENERAL: This is a 61-year-old female patient lying in bed in no apparent distress. HEENT: Head normocephalic and atraumatic. Eyes: Anicteric sclerae. Conjunctivae clear. ENT: Nasal septum is midline. Oral mucosa is dry. NECK: Supple. No JVD noticed. RESPIRATORY: Bilateral diminished breath sounds. No use of accessory muscles of respiration. Bilateral scattered rhonchi. CARDIAC: Regular rate and rhythm. No murmurs heard. ABDOMEN: Soft. Diffuse tenderness especially in the right upper quadrant. No guarding. GENITOURINARY: Deferred. EXTREMITIES: No cyanosis, no clubbing, no edema. Peripheral pulses palpable. NEUROLOGIC: The patient is awake, alert and oriented. Cranial nerves are grossly intact. LABORATORY AND DIAGNOSTIC DATA: WBC 12.1, hemoglobin 9.3, hematocrit 29.9, platelet count 191. Sodium 134, potassium 5.1, chloride 105, carbon dioxide 18 , anion gap 16, BUN 60, creatinine 2.57, glucose 90, calcium 7.9, phosphorus 6.1 , magnesium 2.6. ASSESSMENT AND PLAN: 1. Symptomatic cholelithiasis with possible underlying choledocholithiasis. Continue pain control. Continue empiric antibiotics. The patient is being evaluated by gastroenterology and general surgery. 2. Leukocytosis. Most probably secondary to #1. No evidence of any septic shock. Continue empiric antibiotics. 3. Nicotine use. The patient is trying to quit nicotine use. The patient refused a nicotine patch. 4. Chronic kidney disease. The patient verbalized that she has known history of chronic kidney disease and she was following a scrap sorter in [facility]. A scrap sorter will be called for evaluation. 5. Normocytic hypochromic anemia. Etiology unclear, most probably secondary to underlying chronic kidney disease. We will order an iron panel on this patient. 6. Fluid, electrolytes and nutrition. Currently on clear liquid diet. Continue on IV fluids. 7. Deep venous thrombosis prophylaxis. Bilateral sequential compression devices. 8. Gastrointestinal prophylaxis. Histamine 2 receptor blockers. PLAN: Continue pain control. Continue IV hydration. Await further gastroenterology recommendations and surgery recommendations. Call nephrology consult. Case discussed with Dr. Flynn. SAMSON FLYNN MD, AM/JOHN Conf#: [id number] DID#: [id number] MTDD
[2016-12-30 11:48] LABS: IRON 19 ug/dl (35-150)
[2016-12-30 11:58] LABS: TOTAL IRON BINDING CAPACITY 201 ug/dl (241-421)
[2016-12-30 12:02] LABS: THYROID STIMULATING HORMONE 2.66 MIU/L (0.465-4.680)
--- NOTE | 2016-12-30 12:06 | CONS ---
DATE OF ADMISSION: 12/29/2016 DATE OF CONSULTATION: 12/30/2016 TYPE OF CONSULTATION: Nephrology. REASON FOR CONSULTATION: Acute kidney injury and chronic kidney disease. REQUESTING PHYSICIAN: Dr. Champion. HISTORY OF PRESENT ILLNESS: This is a 61-year-old female with a past medical history of CKD stage I V, baseline creatinine around 2 to 2.5 mg/dL, history of cholelithiasis, who presents to [facility] with complaints of abdominal pain. The patient states that she has been having on going abdominal pain, mid epigastric, for the last 2 days associated with nausea and vomiting. Pain is aching, sharp, non-radiation. The patient came to the emergency room for evaluation. Upon arri kel, the patient had a CT scan abdomen and pelvis which showed findings of distended gallbladder, th ickened, possible cholecystitis as well as possible ischemic bowel. The patient also noted to have atrophic right kidney with a normal sized left kidney. The patient was placed on IV antibiotics, wa s given pain medications and admitted to medical/surgical for evaluation. Please note, in the emerg ency room, the patient also had a CT angio with contrast which showed no evidence of mesenteric isch emia or possibility of choledocholithiasis. In terms of the patient's renal history, the patient sa ys she has underlying chronic kidney disease with a unilateral functioning kidney. The patient stat es that she has 1 atrophic kidney. The patient denies any recent NSAID use. Denies any recent diur etic use, denies any recent antibiotic use. The patient denies any recent rashes, hemoptysis, hemet emesis, hematochezia or any frothy urine. The patient states she has underlying CKD and believes h er creatinine is around 2 to 2.5 mg/dL. PAST MEDICAL HISTORY: As stated above, history of CKD, history of kidney stones. PAST SURGICAL HISTORY: The patient has history of appendectomy, hysterectomy. MEDICATIONS: The patient's medications have been reviewed. FAMILY HISTORY: Noncontributory. SOCIAL HISTORY: Does not drink, smoke or do drugs. REVIEW OF SYSTEMS: A 14-point review of systems was conducted. Pertinent positives in HPI, otherwi se negative. PHYSICAL EXAMINATION: VITAL SIGNS: Blood pressure is 100/58, respiration 18, pulse 87, temperature 98.5. HEENT: Head is normocephalic. Pupils are reactive to light. NECK: Supple. HEART: Regular rate. LUNGS: Show diminished breath sounds at base, otherwise clear. ABDOMEN: Soft, positive tenderness to palpation, positive rebound, positive guarding. EXTREMITIES: Negative for clubbing, cyanosis, no edema. MUSCULOSKELETAL: No joint effusions. NEUROLOGIC: No focal deficits. LABORATORY DATA: Shows sodium 134, potassium 5.1, BUN 62, creatinine 2.57, phosphorus 6.1, magnesiu m 2.6, calcium 7.9. White count 12.1, hemoglobin 9.3, hematocrit 29.9, platelet count is 191. IMAGING STUDIES: As stated in HPI. Ultrasound reviewed showed gallbladder wall thickening. Chest x-ray reviewed. ASSESSMENT AND PLAN: This is a 61-year-old female who presents with: 1. Nonoliguric acute kidney injury on top of chronic kidney disease stage IV with a unilateral func tioning kidney. Etiology of current acute kidney injury appears to be hemodynamics, possible sepsis . The patient's initial urinalysis is bland. Nonactive sediment. At this point, plan would be to repeat a UA with microanalysis. Will recheck urine electrolytes, calculate FENa. Patient's imaging study shows an atrophic right kidney and normal left kidney. Will, however, check renal ultrasound for further evaluation of her underlying parenchyma. Otherwise, continue current treatment plan. Continue IV fluids, continue antibiotics, avoid hemodynamic fluctuations. Will otherwise continue s upportive care, renally dose meds, avoid nephrotoxins, monitor closely with you. 2. Chronic kidney disease stage IV with unilateral functioning kidney. The patient has atrophic ri ght kidney, which appears to have been present for several years. Unclear if this is congenital or due to obstructive ureterolithiasis. Plan at this point is to continue treating acute kidney injury as stated above, will check renal ultrasound and monitor closely. 3. Mineral bone disorder. The patient is hypophosphatemic secondary to acute kidney injury and chr onic kidney disease. Continue to monitor calcium and phosphorus levels. 4. Mild hyponatremia. Continue to monitor sodium levels closely. Limit free water intake. 5. Hypermagnesemia secondary to acute kidney injury. We will continue to monitor. 6. Anemia. Continue to monitor hemoglobin and hematocrit levels. 7. Acute cholecystitis with possible underlying choledocholithiasis. The patient is currently on I V antibiotics. GI consult and a general surgical consults pending. We will continue. 8. Leukocytosis, likely secondary to acute cholecystitis. Possible sepsis. The patient is current ly on broad spectrum antibiotics. Cultures have been sent. Continue to monitor. 9. Gastrointestinal and deep venous thrombosis prophylaxis. Thank you, Dr. Champion, for this interesting consult. It will be a pleasure to follow patient with you throughout the hospital course. Dictated By: CAMERON MONTANEZ/JOHN Conf#: [id number] DID#: [id number]
--- NOTE | 2016-12-30 12:33 | RADRPT ---
PROCEDURE: US Renal CLINICAL INDICATION: Acute renal insufficiency. TECHNIQUE: Multiple sonographic images of the kidneys and bladder were obtained. Evaluation of th e kidneys and bladder was performed as well with maddox scale and color and Doppler evaluation using a curved array transducer. The images were reviewed on a high-resolution PACS workstation. COMPARISON: No prior studies are available for comparison. FINDINGS: The right kidney measures 6.4 cm. The left kidney measures 9.4 cm. Kidneys are small and echogenic in appearance. There is no mass, calculus, or obstructive uropathy. No perinephric fluid collection is seen. Evaluation of the urinary bladder is unremarkable. IMPRESSION: 1. Small echogenic kidneys consistent with medical renal disease. RPTAT: [facility] Physician Nissa Date Time Electronically viewed and signed by Physician Nissa on 12/30/2016 12:33 /
[2016-12-30] MEDS ORDERED: morphine 2 MG INJ IV ONE (13:30)
--- NOTE | 2016-12-30 13:58 | CONS ---
Date/Time of Note Date/Time of Note DATE: 12/30/16 TIME: 13:34 Assessment/Plan Assessment/Plan Additional Assessment/Plan Assessment * Abdominal pain CT abdomen/pelvis 12/29/2016 The gallbladder is distended, there is cholelithiasis in the gallbladder wall appears thickened raising the possibility of cholecystitis. The common bile duct is dilated to 1.1 cm through the head of the pancreas. No choledocholith is evident and no pancreatic pathology is noted. . Extensive stranding seen to the omentum in the region of the hepatic flexure and gallbladder compatible with edema and inflammatory change. * HX of COPD * Chronic Kidney disease Plan * Adequate hydration * pain control * MRCP * ERCP risk and benefit explained to patient and agreed with planned procedure Consultation Date/Type/Reason Admit Date/Time December 29, 2016 Date of Consultation: December 30, 2016 Type of Consultation: Gastroenterology Reason for Consultation choledocholithiasis Referring Provider: MARIBELL FLYNN Hx of Present Illness 61 year old female with past medical history of COPD,chronic kidney disease coming to our emergency room complaining of abdominal pain.Present condition started 2 days ago abdominal pain colicky with associated nausea and vomiting> she denies any fever,hematemesis,hematochezia. Emergency room a CT scan of abdomen/pelvis 12/29/2016 There is stool distension of the cecum, ascending and proximal transverse colon with bowel wall thickening at the hepatic flexure and proximal transverse colon with intramural air. Differential possibilities include ischemic bowel as well as a benign etiologies. No portal air is identified. Clinical correlation is indicated. There is no evidence of bowel obstruction. There is a hiatal hernia and evidence of previous gastric surgery. The gallbladder is distended, there is cholelithiasis in the gallbladder wall appears thickened raising the possibility of cholecystitis. The common bile duct is dilated to 1.1 cm through the head of the pancreas. No choledocholith is evident and no pancreatic pathology is noted. Extensive stranding seen to the omentum in the region of the hepatic flexure and gallbladder compatible with edema and inflammatory change.. There is no free intraperitoneal fluid or air.. Atrophic right kidney without hydronephrosis. The left kidney is normal in size with cortical scarring and with two 2 mm nonobstructing nephroliths within the superior pole. There is no hydronephrosis. . Borderline hepatomegaly. 5 mm central posterior disk protrusion at L5-S1. CT angiogram 12/29/2016 T he celiac, SMA, and ANYA are widely patent. No evidence of mesenteric ischemia. Markedly dilated common bile duct measuring up to 14 mm in diameter which abruptly terminates at the pancreatic head. There is also mild intrahepatic biliary ductal dilatation as well as marked distension of the gallbladder. Findings suggest an obstructing lesion at the distal common bile duct which may be a choledocholith, pancreatic lesion, or an ampullary lesion. An MRCP is recommended for further evaluation. Small hiatal hernia and postsurgical changes at the gastroesophageal junction. Colonic diverticula without evidence of diverticulitis. Laboratory result revealed leukocytosis and elevated alkaline phosphatase. Subsequent evaluation at the hospital .patient still on abdominal pain localized right upper quadrant radiating to the back,denies any nausea and vomiting. Eyes: no complaints ENT: no complaints Respiratory: cough Cardiovascular: no complaints Gastrointestinal: flatus, nausea, pain, vomiting, No blood, No constipation Genitourinary: no complaints Musculoskeletal: no complaints Skin: no complaints Neurologic: no complaints Endocrine: no complaints Lymphatic: no complaints Psychological: anxiety Immunologic: no complaints Past Medical History Medical History: renal disease, other (copd) Past Surgical History Past Surgical Hx: other (surgery sec to peptic ulcer disesase) Family History Significant Family History: no pertinent family hx Social History Alcohol Use: none Smoking Status: Current some day smoker Drug Use: none, other (oxycodone ) Exam/Review of Systems Vital Signs Vitals Vital Signs Date Time Temp Pulse Resp B/P Pulse Ox O2 Delivery O2 Flow Rate FiO2 12/30/16 11:36 94 20 96 Nasal Cannula 2.0 12/30/16 07:22 98.5 100/58 Intake and Output 12/29/16 12/29/16 12/30/16 15:00 23:00 07:00 Intake Total 300 ml 1250 ml Balance 300 ml 1250 ml Exam Constitutional: alert, oriented, well developed Head: atraumatic, normocephalic Eyes: PERRL, nl sclera Neck: non-tender, supple Respiratory: congested cough, diminished breath sounds, normal air movement Cardiovascular: nl pulses, regular rate and rhythm Gastrointestinal: bowel sounds, distended, soft, tender, No rebound or guarding Musculoskeletal: nl extremities to inspection, nl gait and stance Extremities: normal pulses Neurological: nl mental status, nl speech Skin: nl turgor, No rash or lesions Lymph: nl lymph nodes Results Result Diagram: 12/30/16 0724 12/30/16 0724 Results 24 hrs Laboratory Tests Test 12/29/16 15:00 12/29/16 18:40 12/29/16 20:30 12/29/16 22:40 Urine Color YELLOW Urine Clarity CLEAR Urine pH 5.5 Urine Specific [place] 1.020 Urine Ketones NEGATIVE Urine Nitrite NEGATIVE Urine Bilirubin NEGATIVE Urine Urobilinogen 0.2 E.U./dL Urine Leukocyte Esterase NEGATIVE Urine Microscopic RBC NONE SEEN Urine Microscopic WBC 0-2 Urine Amorphous Urates MODERATE Urine Hemoglobin NEGATIVE Urine Glucose NEGATIVE Urine Total Protein 1+ H Prothrombin Time 15.0 H Prothrombin Time Ratio 1.2 INR International Normalized Ratio 1.17 Activated Partial Thromboplast Time 41.9 H Lactic Acid Level 3.7 H 2.1 1.2 Troponin I < 0.012 Test 12/30/16 07:14 12/30/16 07:24 Iron Level 19 L Total Iron Binding Capacity 201 L Percent Iron Saturation 9 L Ferritin 71.2 Parathyroid Hormone (Intact) White Blood Count 12.1 #H Red Blood Count 3.31 L Hemoglobin 9.3 L Hematocrit 29.9 L Mean Corpuscular Volume 90.3 Mean Corpuscular Hemoglobin 28.1 L Mean Corpuscular Hemoglobin Concent 31.1 L Red Cell Distribution Width 14.7 H Platelet Count 191 Mean Platelet Volume 10.6 H Neutrophils % 83.0 H Band Neutrophils % 5.0 Lymphocytes % 7.0 L Monocytes % 5.0 Eosinophils % Neutrophils # 10.0 H Lymphocytes # 0.8 Monocytes # 0.6 Eosinophils # Sodium Level 134 L Potassium Level 5.1 Chloride Level 105 Carbon Dioxide Level 18 L Anion Gap 16 Blood Urea Nitrogen 62 H Creatinine 2.57 H Glucose Level 90 Hemoglobin A1c 5.6 Uric Acid 6.2 Calcium Level 7.9 L Phosphorus Level 6.1 H Magnesium Level 2.6 H Total Bilirubin 0.0 L Direct Bilirubin 0.00 Indirect Bilirubin 0.0 Aspartate Amino Transf (AST/SGOT) 22 Alanine Aminotransferase (ALT/SGPT) 36 Alkaline Phosphatase 204 H Total Protein 5.6 #L Albumin 2.6 #L Globulin 3.00 Albumin/Globulin Ratio 0.86 Triglycerides Level 84 Cholesterol Level 66 L LDL Cholesterol, Calculated 18 HDL Cholesterol 31 L Cholesterol/HDL Ratio 2.1 Thyroid Stimulating Hormone (TSH) 2.660 Medications Medications Current Medications Ciprofloxacin/ Dextrose 200 ml @ 200 mls/hr Q24H IVPB Last administered on 20:38; Admin Dose 200 MLS/HR; Start 12/29/16 at 18:30 Metronidazole (Flagyl 500 Mg (Pmx)) 100 ml @ 100 mls/hr Q8 IVPB Last administered on 12/30/16 05:14; Admin Dose 100 MLS/HR; Start 12/29/16 at 22:00 Morphine Sulfate (morphine) 2 mg Q4H PRN IV PAIN Last administered on 10:51; Admin Dose 2 MG; Start 12/29/16 at 18:30 Famotidine (Pepcid) 20 mg Q24H PO Last administered on 12/29/16 20:39; Admin Dose 20 MG; Start 12/29/16 at 21:00 Docusate Sodium 100 mg 100 mg BID PO Last administered on 12/29/16 20:39; Admin Dose 100 MG; Start 12/29/16 at 21:00 Dextrose/Sodium Chloride (D5-1/2ns) 1,000 ml @ 100 mls/hr Q10H IV Last administered on 12/30/16 05:18; Admin Dose 100 MLS/HR; Start 12/29/16 at 19:30 ; Stop 12/30/16 at 15:29 Miscellaneous Information Patients own medicat... BID@10,16 XX ; Start 12/30/16 at 10:00 DELGADO RICHARDS MD December 30, 2016 13:45
[2016-12-30 14:17] LABS: ADD UMIC YES; URINE BILIRUBIN (Dip) NEGATIVE (NEGATIVE); URINE BLOOD (Dip) NEGATIVE (NEGATIVE); URINE COLOR YELLOW (YELLOW); URINE GLUCOSE (Dip) NEGATIVE (NEGATIVE); URINE KETONES (Dip) NEGATIVE (NEGATIVE); URINE LEUKOCYTE ESTERASE (Dip) NEGATIVE (NEGATIVE); URINE NITRITE (Dip) NEGATIVE (NEGATIVE); URINE TOTAL PROTEIN (Dip) 1+ (NEGATIVE); URINE UROBILINOGEN (Dip) 0.2 E.U./dL (0.1-1.0)
--- NOTE | 2016-12-30 14:22 | CONS ---
[facility] INITIAL INPATIENT CONSULTATION NOTE DATE OF CONSULTATION: 12/30/2016 PLACE OF SERVICE: [facility], second floor, [facility]. IMPRESSION/PLAN: A very pleasant but unfortunate 61-year-old lady with comorbidities including BMI 26.9 as well as chronic smoker and prior operations , presenting with a picture consistent with possible early acute cholecystitis in the setting of choledocholithiasis and bile duct dilatation. There is more than 90% chance that this is from a benign process such as biliary stone disease , but certainly an ampullary lesion or a small pancreatic head malignancy or distal common bile duct malignancy is not completely ruled out. She also has evidence of significant constipation and fortunately did not have any evidence of obvious ischemia on the abdominal angiography, but presence of the stranding in the omentum near the hepatic flexure and transverse colon are somewhat bothersome. Her septic parameters have rapidly improved with less than 1 day resuscitation in the hospital and that is encouraging. Renal insufficiency, still continues. She can certainly benefit from more aggressive medical management, which is being done here in the hospital. She should have clearance of her common bile duct and medical stabilization prior to a laparoscopic cholecystectomy. It is also possible that if the patient does not stabilize enough that she may need a percutaneous transhepatic cholangiography drain placed, but this possibility is low. I explained all this in detail to the patient (no family present during any of my discussions with the patient) and answered all her questions. I believe that the patient understood and agreed with the plan. With above assessment I have recommended the followin. Agree with GI consultation with significant thought to performance of an ERCP. 2. Continue aggressive resuscitation and broad-spectrum antimicrobials. 3. Appreciate renal input and management. 4. Continued careful observation in house. 5. If common bile duct is cleared and patient is medically stable to then undergo laparoscopic cholecystectomy. Otherwise, percutaneous drainages is another option. Thank you again for allowing us to participate in the care of this very pleasant lady, and I am certain her wonderful her wonderful family. If there are any questions, please feel free to contact me at [phone] UPDATED "SUMMARY": A very pleasant 61-year-old lady admitted through the [facility] Emergency Room on 12/29/2016 with evidence for possible acute cholecystitis as well as choledocholithiasis. COMORBIDITIES: 1. BMI 26.9. 2. Smoking history. 3. Renal insufficiency. 4. History of known cholelithiasis. 5. Status post appendectomy. 6. Status post hysterectomy. DATE OF ADMISSION: 12/29/2016 HISTORY OF PRESENT ILLNESS: The patient is a very pleasant 61-year-old lady with above-mentioned comorbidities whom we were kindly asked to consult regarding management of her abdominal pain that is associated with a picture that is consistent with acute cholecystitis as well as possible choledocholithiasis. Note that images included CT scan of abdomen and pelvis that showed common bile duct measuring 1.1 cm and gallbladder being distended. Cholelithiasis was found in the gallbladder and the gallbladder wall appeared to be thickened. There was also significant stool distention of the cecum, ascending and proximal transverse colon with bowel wall thickening at the hepatic flexure and proximal transverse colon with intramural air. No portal air was identified, but differential included ischemic bowel. No evidence of bowel obstruction was noted. There was also a hiatal hernia and evidence of previous gastric surgery. Extensive stranding was seen to the omentum in the region of the hepatic flexure and gallbladder compatible with edema and inflammatory change. Atrophic right kidney without hydronephrosis was noted and the left kidney was normal in size with a 2 mm nonobstructing nephrolith within the superior pole. Borderline hepatomegaly was noted and a 5 mm central posterior disk protrusion at L5-S1 level was also noted. She then underwent abdominal angiography that demonstrated patent major vessels of the abdomen without any evidence of mesenteric ischemia. Colonic diverticula without evidence of diverticulitis were the only other new information from this study. She also had a right upper quadrant ultrasound on the same day that essentially showed similar findings. Renal ultrasound on showed small echogenic kidneys consistent with medical renal disease. Her laboratory evaluation also was significant for an admission white blood cell count of 20.9 that dropped down to 12.1. Platelet count is 191 and the electrolytes have improved since admission with CO2 of 18 up from 16. Creatinine is still 2.57, which is slightly better than 2.73 from admission. Lactic acid is certainly improved from 3.7 to normal after resuscitation. The alkaline phosphatase remains elevated at 204, but the AST, ALT and total bilirubin are normal. Admission lipase was 78. Albumin after resuscitation was 2.6. INR is 1.17 and urinalysis was not positive for nitrite or leukocyte esterase. Urine culture is still negative. I had a chance to meet with the patient today and during my visit, the patient had abdominal pain and reported nausea and vomiting several times prior to coming in. She has had bowel movements and bowel activity until recently. No other major complaints. ALLERGIES 1. PENICILLIN. 2. DIPHENHYDRAMINE. 3. TAMSULOSIN. HOME MEDICATIONS: Included: 1. Omeprazole. 2. Phenergan. 3. Zocor. SOCIAL HISTORY: The patient's family lives in [place], mainly her sons. She reports smoking. Does not report significant drinking, and no intravenous drug use reported. FAMILY HISTORY: No mention of major medical, surgical or oncologic problems in the family. REVIEW OF SYSTEMS: Other than the above-mentioned, there are no other pertinent positives or pertinent negatives in a complete 14-point review of systems. PHYSICAL EXAMINATION: GENERAL: The patient appears to be a very pleasant lady of non- descent, appearing stated age or perhaps slightly older, lying in bed comfortably and in no acute distress. Her BMI is 26.9. VITAL SIGNS: Temperature is 98.5, blood pressure 100/58, pulse 94, respiratory rate 20, pulse oximetry 96% on 2 liters of nasal cannula. HEENT: Normocephalic and atraumatic. Extraocular muscles and hearing are grossly intact bilaterally and symmetrically. Sclerae are nonicteric. Oral cavity is clear; oral mucosa appeared to be pink and moist. Dentition: poor. NECK: Supple. There is no lymphadenopathy or JVD. There is no submental, submandibular or supraclavicular lymphadenopathy. CHEST: Rises symmetrically with each breath; patient is breathing comfortably. There are no audible wheezes, rales or rhonchi on the gross exam. HEART: Pulse is regular and palpable on the right wrist. Capillary refill was normal. Carotid pulses are palpable bilaterally and symmetrically in the neck. EXTREMITIES: Lower extremities contain no pitting edema around the ankles bilaterally and symmetrically. ABDOMEN: Soft, nondistended and mild to moderately tender to palpation mainly in the right upper quadrant. There is no evidence of organomegaly, caput medusae, engorged subcutaneous veins, or ascites. There are no peritoneal signs and no major guarding. SKIN: Appears to be pink and feels warm to touch. NEUROLOGIC: Awake, alert, and follows commands appropriately. LABORATORY VALUES: As mentioned above. IMAGING: As mentioned above. Note that I personally reviewed all the available and pertinent images and I agree in general with their overall reported findings. Dictated By: NAIDA NAGY/JOHN Conf#: [id number] DID#: [id number] MTDD
[2016-12-30 14:27] LABS: BACTERIA,URINE RARE; URINE RBCS 0-2 /HPF (0)
[2016-12-30] MEDS ORDERED: INDOMETHACIN 50 MG SUPP PR ONE (14:30)
[2016-12-30] MEDS: CIPROFLOXACIN 400MG/D5W 200 ML IVPB SCH (17:50)
--- NOTE | 2016-12-30 17:55 | RADRPT ---
PROCEDURE: MRI abdomen without contrast; MRCP CLINICAL INDICATION: abdominal pain TECHNIQUE: Multiplanar, multisequence imaging of the abdomen was obtained without contrast. Imagi ng includes axial T3-T2 fat-saturated images with coronal T2-weighted images. In addition, a dedicated high T2 signal intensity MRCP images were obtained in multiple planes with 3-D reconstructions. COMPARISON: CT 12/29/2016 FINDINGS: MRCP: There is a dilated gallbladder present with generalized gallbladder wall thickening with mild perich olecystic fluid which is indeterminate given the presence of mild ascites. There is prominent diffu se common duct enlargement measuring up to 19 mm in diameter and this extends down to the ampulla wh ere there is abrupt narrowing at its insertion into the duodenum. The pancreatic duct is at the upp er limits of normal in size. There is mild intrahepatic biliary ductal enlargement. No gallstones are visible choledocholithiasis is seen on MRCP. MRI abdomen: Bilateral layering small pleural effusions are seen with borderline cardiomegaly partially visualize d and bibasilar opacities appear grossly stable. Again seen are inflammatory changes in the right upper quadrant of the abdomen not fully characteriz e by this exam. Wall thickening of the colon with prominent colonic distension with stool is again seen and fine detail of the bowel is limited with this technique. The adrenal glands unremarkable pound mass. There is atrophy of the right kidney and a lobular cont our of the left kidney with areas of parenchymal loss. There is grossly uniform signal intensity the pancreas however fine detail is limited. Flow void is seen within the portal vein. There is no focal hepatic lesion. Aortic atherosclerosis is again seen. Mesenteric fat stranding and intra-abdominal ascites is prese nt. IMPRESSION: Common duct enlarged measuring up to 19 mm of mild intrahepatic biliary ductal dilatation and this e xtends down to the ampulla with no visible filling defect. This could represent ampullary stricture or an impacted stone which can be correlated with ERCP. Mild wall thickening of the gallbladder is seen which is indeterminate given the presence of ascites . This could represent gallbladder inflammation or third spacing of fluid. Cardiomegaly is seen of bilateral layering small effusions and mild intra-abdominal ascites. Inflammatory changes of the right upper quadrant mesentery of the colon appear grossly stable from p rior CT however fine detail is limited this technique. Atherosclerotic disease. RPTAT: AA .Jayla Sanchez MD, MD Date Time Electronically viewed and signed by .Jayla Sanchez MD, MD on 12/30/2016 17:55 .J/
[2016-12-30 20:10] VITALS: BP 93/52; RESP 18
[2016-12-30] MEDS: FAMOTIDINE 20 MG TAB PO SCH (21:03)
[2016-12-31] VITALS (25 sets, daily range): BP systolic 106–217; BP diastolic 51–114; PULSE 70–116; RESP 14–35
[2016-12-31] MEDS: morphine 2 MG INJ IV PRN ×4 (02:06→14:35)
[2016-12-31] MEDS: metroNIDAZOLE 500 MG/NS (PMX) 100 ML IVPB SCH ×3 (04:49→23:12)
[2016-12-31 07:38] LABS: ADD SCAN DIFF NO
[2016-12-31 07:40] LABS: BASOPHILS % 0.1 % (0.0-2.0); EOSINOPHILS % 0.2 % (0.0-7.0); HEMATOCRIT 29.1 % (37.0-47.0); HEMOGLOBIN 9.2 g/dl (12.0-16.0); LYMPHOCYTES # 1.2 10^3/ul (0.8-2.9); LYMPHOCYTES % 8.2 % (15.0-51.0); MEAN CORPUSCULAR HGB CONC 31.6 g/dl (32.0-37.0); MEAN CORPUSCULAR VOLUME 88.7 fl (82.0-101.0); MEAN PLATELET VOLUME 10.8 fl (7.4-10.4); MONOCYTE # 0.9 10^3/ul (0.3-0.9); MONOCYTES % 6.1 % (0.0-11.0); NEUTROPHIL # 11.9 10^3/ul (1.6-7.5); NEUTROPHILS % 85.1 % (39.0-77.0); PLATELET COUNT 177 10^3/UL (140-415); RED BLOOD COUNT 3.28 10^6/ul (4.20-5.40); RED CELL DISTRIBUTION WIDTH 14.7 % (11.5-14.5)
[2016-12-31 07:48] LABS: ALBUMIN 2.6 g/dl (3.3-4.9)
[2016-12-31 07:49] LABS: POTASSIUM 4.5 mmol/L (3.5-5.1)
[2016-12-31 07:51] LABS: ALBUMIN/GLOBULIN RATIO 0.81; CREATININE 2.15 mg/dl (0.44-1.00); TOTAL PROTEIN 5.8 g/dl (6.1-8.1)
[2016-12-31 07:52] LABS: CALCIUM 8.4 mg/dl (8.4-10.2)
[2016-12-31] MEDS: DOCUSATE SODIUM 100 MG CAP PO SCH ×2 (08:19→21:00)
--- NOTE | 2016-12-31 09:36 | PN ---
DATE: 12/31/2016 SUBJECTIVE: The patient is stable. Continues to have abdominal pain. The patient informed me that she was only born with 1 functional kidney. No other events noted. No hemoptysis, hematemesis or hematochezia. OBJECTIVE: VITAL SIGNS: Blood pressure is 93/52, respirations 18, pulse 96, temperature 98.8. I's and O's: The patient had 2 L in, 1.6 liters out. HEENT: Head is normocephalic. Pupils are reactive to light. NECK: Supple. HEART: Regular rate. LUNGS: Show diminished breath sounds at the bases. ABDOMEN: Soft, positive tenderness to palpation right upper quadrant. Positive rebound and guardin g. EXTREMITIES: Negative for clubbing, cyanosis or edema. DERMATOLOGIC: No rashes. MUSCULOSKELETAL: No joint effusions. NEUROLOGIC: No focal deficits. MEDICATIONS: The patient's medications have been reviewed. IMAGING STUDIES: Shows an abdominal MRI that shows mild wall thickening of the gallbladder, represe nting gallbladder inflammation, third spacing, cardiomegaly with bilateral layering of small effusio ns, mild intra-abdominal ascites. The common duct enlargement shows possible ampullary stricture, i mpacted stone. Renal ultrasound shows small echogenic kidneys consistent with medical renal disease . LABORATORY DATA: Showed sodium 134, potassium 4.5, chloride 107, BUN 48, creatinine 2.15. White co unt is 14.0, hemoglobin 9.2, hematocrit 29.1, platelet count is 177. ASSESSMENT AND PLAN: 1. Nonoliguric acute kidney injury on top of chronic kidney disease stage IV with a unilateral func tioning kidney. Etiology of acute kidney injury is secondary to hemodynamics. The patient's renal ultrasound shows no evidence of hydronephrosis, small echogenic kidneys consistent with renal diseas e. The patient's urinalysis shows no active sediment and FENa of less than 1%. The patient's renal function has improved with IV hydration. At this point, we will continue current treatment plan. Continue gentle IV hydration. Continue treating underlying sepsis with antibiotic therapy. Continu e supportive care, renally dose all meds, avoid nephrotoxins. 2. Chronic kidney disease stage IV with unilateral functioning kidney. 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 At this point, we will continue to treat acute kidney injury as stated abo ve. Continue supportive care, renally dose all meds, avoid nephrotoxins. 3. Mineral bone disease. The patient is hyperphosphatemic secondary to acute kidney injury and chr onic kidney disease. Continue to monitor. No need for phosphate binders. 4. Mild hyponatremia. Continue to monitor sodium levels. 5. Hypermagnesemia secondary to acute kidney injury. Continue to monitor. 6. Anemia. Continue to monitor hemoglobin and hematocrit levels. 7. Acute cholecystitis, possible choledocholithiasis. The patient is currently on IV antibiotics, we will continue. The patient is pending ERCP today. 8. Leukocytosis secondary to acute cholecystitis. Continue to monitor. Continue antibiotic therap y. 9. Gastrointestinal and deep venous thrombosis prophylaxis. Continue proton pump inhibitor and seq uential leg squeezers. Dictated By: CAMERON MONTANEZ/JOHN Conf#: [id number] DID#: [id number]
[2016-12-31] MEDS: ALBUTEROL/IPRATROPIUM (NEB) 3 ML AMP HHN PRN ×2 (10:07→19:18)
[2016-12-31] MEDS: SOD CHLORIDE 0.9% 1,000 ML IV SCH ×2 (10:40→23:12)
--- NOTE | 2016-12-31 11:52 | PN ---
Date/Time of Note Date/Time of Note DATE: 12/31/16 TIME: 11:51 Assessment/Plan VTE Prophylaxis VTE Prophylaxis Intervention: SCD's Lines/Catheters IV Catheter Type (from [facility]): Peripheral IV Urinary Cath still in place: No Assessment/Plan Chief Complaint/Hosp Course 1. Symptomatic cholelithiasis with possible underlying choledocholithiasis. Continue pain control. Continue empiric antibiotics. The patient is being evaluated by gastroenterology and general surgery. The patient is scheduled for an ERCP today. 2. Leukocytosis. Most probably secondary to #1. No evidence of any septic shock. Continue empiric antibiotics. 3. Nicotine use. The patient is trying to quit nicotine use. The patient refused a nicotine patch. 4. Chronic kidney disease. 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 Patient being followed by nephrology. 5. Normocytic hypochromic anemia. Etiology unclear, most probably secondary to underlying chronic kidney disease. Continue to monitor H&H closely. Iron panel showing iron deficiency. Will start the patient on iron supplements. 6. COPD. No evidence of exacerbation. Continue inhaled bronchodilators. Will start the patient on maintenance inhalers. 7. Fluid, electrolytes and nutrition. Currently NPO. Continue on IV fluids. 8. Deep venous thrombosis prophylaxis. Bilateral sequential compression devices. 9. Gastrointestinal prophylaxis. Histamine 2 receptor blockers. PLAN: Continue pain control. Continue IV hydration. Continue antibiotics. Start maintenance inhalers. Start iron supplements. Case discussed with Dr. Champion. Problems: Subjective 24 Hr Interval Summary Free Text/Dictation Still having abdominal pain. Exam/Review of Systems Vital Signs Vitals Vital Signs Date Time Temp Pulse Resp B/P Pulse Ox O2 Delivery O2 Flow Rate FiO2 12/31/16 10:08 92 16 96 Nasal Cannula 2.0 12/31/16 08:00 98.6 110/51 Intake and Output 12/30/16 12/30/16 12/31/16 15:00 23:00 07:00 Intake Total 100 ml 1550 ml 418 ml Output Total 650 ml 1000 ml Balance 100 ml 900 ml -582 ml Exam GENERAL: This is a 61-year-old female patient lying in bed in no apparent distress. HEENT: Head normocephalic and atraumatic. Eyes: Anicteric sclerae. Conjunctivae clear. ENT: Nasal septum is midline. Oral mucosa is dry. NECK: Supple. No JVD noticed. RESPIRATORY: Bilateral diminished breath sounds. No use of accessory muscles of respiration. Bilateral scattered rhonchi. CARDIAC: Regular rate and rhythm. No murmurs heard. ABDOMEN: Soft. Diffuse tenderness especially in the right upper quadrant. No guarding. GENITOURINARY: Deferred. EXTREMITIES: No cyanosis, no clubbing, no edema. Peripheral pulses palpable. NEUROLOGIC: The patient is awake, alert and oriented. Cranial nerves are grossly intact. Results Result Diagram: 12/31/16 0430 12/31/16 0430 Results 24 hrs Laboratory Tests Test 12/30/16 14:00 12/31/16 04:30 12/31/16 04:55 Urine Color YELLOW Urine Clarity CLEAR Urine pH 5.5 Urine Specific [place] 1.010 Urine Ketones NEGATIVE Urine Nitrite NEGATIVE Urine Bilirubin NEGATIVE Urine Urobilinogen 0.2 E.U./dL Urine Leukocyte Esterase NEGATIVE Urine Microscopic RBC 0-2 Urine Microscopic WBC 0-2 Urine Epithelial Cells RARE Urine Bacteria RARE Urine Hemoglobin NEGATIVE Urine Random Creatinine 78.67 Urine Random Sodium 21 L Urine Glucose NEGATIVE Urine Total Protein 40.0 H White Blood Count 14.0 H Red Blood Count 3.28 L Hemoglobin 9.2 L Hematocrit 29.1 L Mean Corpuscular Volume 88.7 Mean Corpuscular Hemoglobin 28.0 L Mean Corpuscular Hemoglobin Concent 31.6 L Red Cell Distribution Width 14.7 H Platelet Count 177 Mean Platelet Volume 10.8 H Neutrophils % 85.1 H Lymphocytes % 8.2 L Monocytes % 6.1 Eosinophils % 0.2 Basophils % 0.1 Nucleated Red Blood Cells % 0.0 Neutrophils # 11.9 H Lymphocytes # 1.2 Monocytes # 0.9 Eosinophils # 0.0 Basophils # 0.0 Nucleated Red Blood Cells # 0.0 Sodium Level 134 L Potassium Level 4.5 Chloride Level 107 Carbon Dioxide Level 16 L Anion Gap 16 Blood Urea Nitrogen 48 #H Creatinine 2.15 H Glucose Level 91 Calcium Level 8.4 Total Bilirubin 0.0 L Direct Bilirubin 0.00 Indirect Bilirubin 0.0 Aspartate Amino Transf (AST/SGOT) 18 Alanine Aminotransferase (ALT/SGPT) 33 Alkaline Phosphatase 217 H Total Protein 5.8 L Albumin 2.6 L Globulin 3.20 Albumin/Globulin Ratio 0.81 Magnesium Level 2.6 H Medications Medications Current Medications Ciprofloxacin/ Dextrose 200 ml @ 200 mls/hr Q24H IVPB Last administered on 17:50; Admin Dose 200 MLS/HR; Start 12/29/16 at 18:30 Metronidazole (Flagyl 500 Mg (Pmx)) 100 ml @ 100 mls/hr Q8 IVPB Last administered on 12/31/16 04:49; Admin Dose 100 MLS/HR; Start 12/29/16 at 22:00 Morphine Sulfate (morphine) 2 mg Q4H PRN IV PAIN Last administered on 10:40; Admin Dose 2 MG; Start 12/29/16 at 18:30 Famotidine (Pepcid) 20 mg Q24H PO Last administered on 12/30/16 21:03; Admin Dose 20 MG; Start 12/29/16 at 21:00 Docusate Sodium (Colace) 100 mg BID PO Last administered on 12/31/16 08:19; Admin Dose 100 MG; Start 12/29/16 at 21:00 Miscellaneous Information Patients own medicat... BID@10,16 XX ; Start 12/30/16 at 10:00 Sodium Chloride (NS) 1,000 ml @ 75 mls/hr [id number] IV Last administered on 12/31 10:40; Admin Dose 75 MLS/HR; Start 12/31/16 at 09:30 SAMSON SHAFFER NP December 31, 2016 11:52
[2016-12-31] MEDS: ALBUTEROL/IPRATROPIUM (NEB) 3 ML AMP HHN SCH ×2 (14:18→20:00)
[2016-12-31] MEDS: SALMETEROL/FLUTICASONE 250/50 INHA INH SCH ×2 (14:22→21:00)
[2016-12-31] MEDS ORDERED: morphine 2 MG INJ IV ONE (15:30)
[2016-12-31] MEDS: SOD FERRIC GLUC COMPLX 125 MG in SOD CHLORIDE 0.9% 100 ML IVPB SCH (15:41)
[2016-12-31] MEDS ORDERED: IOHEXOL 300MG/ML 30 ML BTL ONE (15:44)
[2016-12-31] MEDS ORDERED: INDOMETHACIN 50 MG SUPP PR ONE (15:44)
[2016-12-31] MEDS ORDERED: ROCURONIUM 50 MG INJ ONE (16:46)
[2016-12-31] MEDS ORDERED: PROPOFOL 20 ML ONE ×2 (16:46→19:09)
[2016-12-31] MEDS ORDERED: SUCCINYLCHOLINE CHLORIDE 100 MG/5 ML SYG IV ONE (16:46)
[2016-12-31] MEDS ORDERED: MIDAZOLAM 1 MG/ML 2 ML INJ ONE (16:47)
[2016-12-31] MEDS ORDERED: FENTAnyl 50 MCG/ML VIAL ONE (16:47)
[2016-12-31] MEDS ORDERED: PHENYLephrine (100 MCG/ML) 5ML SYG ONE (17:00)
[2016-12-31] MEDS ORDERED: DEXAMETHASONE 4 MG/ML 1 ML INJ ONE (17:28)
[2016-12-31] MEDS ORDERED: ONDANSETRON 4 MG INJ ONE (17:28)
[2016-12-31] MEDS ORDERED: FAMOTIDINE 20 MG INJ ONE (17:28)
[2016-12-31] MEDS ORDERED: METOCLOPRAMIDE 10 MG INJ ONE (17:28)
[2016-12-31] MEDS ORDERED: MEPERIDINE 25 MG INJ IV PRN (17:30)
[2016-12-31] MEDS ORDERED: morphine (1 MG/ML) 10ML SYRINGE IV PRN ×5 (17:30→23:00)
[2016-12-31] MEDS ORDERED: LABETALOL HCL 20MG INJ IV PRN (17:30)
[2016-12-31] MEDS ORDERED: EPHEDrine SULFATE 50 MG/5 ML SYG IV PRN (17:30)
[2016-12-31] MEDS ORDERED: METOCLOPRAMIDE 10 MG INJ IV PRN (17:30)
[2016-12-31] MEDS ORDERED: hydrALAzine 20 MG INJ IV PRN (17:30)
[2016-12-31] MEDS ORDERED: HYDROmorphONE (0.2 MG/ML) 10ML SYG IV PRN ×3 (17:30)
[2016-12-31] MEDS ORDERED: ONDANSETRON 4 MG INJ IV PRN ×2 (17:30→23:00)
[2016-12-31] MEDS ORDERED: GLYCOPYRROLATE 0.4 MG INJ ONE (17:32)
[2016-12-31] MEDS ORDERED: NEOSTIGMINE 3 MG/3 ML SYRINGE ONE (17:32)
--- NOTE | 2016-12-31 17:51 | PN ---
Date/Time of Note Date/Time of Note DATE: 12/31/16 TIME: 17:48 Assessment/Plan Lines/Catheters IV Catheter Type (from [facility]): Peripheral IV Haley in Place (from [facility]): No Assessment/Plan Assessment/Plan [facility] Progress Note Date of Service: 12/31/16 Today's Impression & Plan: Overall stable. Observed ERCP with Dr. Jewell. Benign appearing stricture. Plan is to stent and observe. I will remove the gallbladder in 48-72 hours given renal insufficiency and need for further resuscitation. With above assessment, I've recommended the following for today: 1. Cont aggressive medical management 2. Will delay scheduled case from tomorrow am to Tuesday Thank you again for your great care of this very pleasant patient and wonderful family. If there are any questions, please feel free to call me at [phone]. TOTAL VISIT TIME: 20 minutes of which more than half was spent in the operating room, as well as coordination of care between multiple physicians and providers. Disclaimer: Inadvertent spelling or grammatical errors are likely due to EHR/ dictation software use and do not reflect on the overall quality of patient care. Updated Clinical Summary: A very pleasant 61-year-old lady admitted through the [facility] on 12/29/2016 with evidence for possible acute cholecystitis as well as choledocholithiasis. COMORBIDITIES: 1. BMI 26.9. 2. Smoking history. 3. Renal insufficiency. 4. History of known cholelithiasis. 5. Status post appendectomy. 6. Status post hysterectomy. Subjective: No major reported events or complaints; patient under general anesthesia undergoing ERCP Objective: Vitals: See below Exam: Unable to examine. Patient under general anesthesia undergoing ERCP Exam/Review of Systems Vital Signs Vitals Vital Signs Date Time Temp Pulse Resp B/P Pulse Ox O2 Delivery O2 Flow Rate FiO2 12/31/16 16:06 2.0 12/31/16 14:20 90 20 95 Nasal Cannula 12/31/16 08:00 98.6 110/51 Intake and Output 12/30/16 12/30/16 12/31/16 15:00 23:00 07:00 Intake Total 100 ml 1550 ml 418 ml Output Total 650 ml 1000 ml Balance 100 ml 900 ml -582 ml Results Result Diagram: 12/31/16 0430 12/31/16 0430 NAIDA REDDY M.D. December 31, 2016 17:51
[2016-12-31] MEDS: CIPROFLOXACIN 400MG/D5W 200 ML IVPB SCH (18:30)
[2016-12-31] MEDS ORDERED: ALBUTEROL 0.5% (NEB) 2.5 MG/0.5 ML AMP ONE (18:32)
[2016-12-31] MEDS ORDERED: NALOXONE (0.4 MG/ML) INJ ONE (19:09)
[2016-12-31 19:31] LABS: AADO2 Arterial 126.1 mmHg (7.0-24.0); Allen Test ACCEPTAB; Arterial Base Excess -9.9 mmol/L (-3.0-3); Arterial COHb 0.4 % (0.0-3.0); Arterial Fraction of Oxyhgb 92.7 % (93.0-99.0); Arterial HCO3 16.7 mmol/L (22.0-26.0); Arterial MetHb 0.1 % (0.0-1.5); Arterial Total Hemglobin 8.7 g/dl (12.0-18.0); Blood Gas IEPAP 20/5; MODE MASK - BIPAP
--- NOTE | 2016-12-31 19:45 | RADRPT ---
PROCEDURE: Portable chest x-ray. CLINICAL INDICATION: Nasogastric tube placement. TECHNIQUE: Portable AP view of the chest. COMPARISON: 12/29/2016 at 05:48 p.m.. FINDINGS: A nasogastric tube terminates in the region of the esophagogastric junction. There is vascular giuseppe estion and pulmonary edema, not significantly changed. There is mild bibasilar atelectasis. The ca rdiac silhouette is enlarged. There are aortic calcifications. The vascular stent projects over the left paratracheal region. There are probable small bilateral pleural effusions. There is no pneumot horax. Multiple surgical clips project over the epigastrium. IMPRESSION: 1. Nasogastric tube tip in the region of the esophagogastric junction. Recommend advancement. 2. Vascular congestion and pulmonary edema, not significantly changed. 3. Mildly enlarged cardiac silhouette and aortic atherosclerosis. 4. Probable small bilateral pleural effusions. RPTAT: HTAR .Bentley Sellers MD, Date Time Electronically viewed and signed by .Bentley Sellers MD, on 12/31/2016 19:44 .R/
--- NOTE | 2016-12-31 19:46 | RADRPT ---
PROCEDURE: Portable chest x-ray. CLINICAL INDICATION: Nasogastric tube placement. TECHNIQUE: Portable AP view of the chest. COMPARISON: 12/31/2078 07:04 p.m.. FINDINGS: A nasogastric tube terminates in the stomach. There is vascular congestion and pulmonary edema, not significantly changed. There is mild right basilar atelectasis. The cardiac silhouette is enlarge d. There are aortic calcifications. The vascular stent projects over the left paratracheal region. T here are probable small bilateral pleural effusions. There is no pneumothorax. Multiple surgical c lips project over the epigastrium. IMPRESSION: 1. Nasogastric tube tip in the stomach. 2. Vascular congestion and pulmonary edema, not significantly changed. 3. Mildly enlarged cardiac silhouette and aortic atherosclerosis. 4. Probable small bilateral pleural effusions. RPTAT: HTAR .Bentley Sellers MD, Date Time Electronically viewed and signed by .Bentley Sellers MD, on 12/31/2016 19:45 .R/
[2016-12-31] MEDS: FAMOTIDINE 20 MG TAB PO SCH (21:00)
[2016-12-31] MEDS ORDERED: FENTAnyl 50 MCG/ML VIAL IV PRN ×2 (23:00)
[2017-01-01] VITALS (23 sets, daily range): BP systolic 95–198; BP diastolic 62–141; PULSE 80–99; RESP 18–28
[2017-01-01] MEDS ORDERED: SOD CHLORIDE 0.9% 1,000 ML IV ONE (00:30)
[2017-01-01] MEDS: FAMOTIDINE 20 MG TAB PO SCH ×2 (01:01→21:44)
[2017-01-01] MEDS: DOCUSATE SODIUM 100 MG CAP PO SCH ×3 (01:01→21:44)
[2017-01-01] MEDS: metroNIDAZOLE 500 MG/NS (PMX) 100 ML IVPB SCH ×3 (05:22→21:44)
[2017-01-01] MEDS: morphine 2 MG INJ IV PRN ×4 (05:23→21:46)
[2017-01-01 05:48] LABS: ADD SCAN DIFF NO
[2017-01-01 05:53] LABS: BASOPHILS % 0.1 % (0.0-2.0); HEMATOCRIT 27.3 % (37.0-47.0); HEMOGLOBIN 8.9 g/dl (12.0-16.0); LYMPHOCYTES # 0.7 10^3/ul (0.8-2.9); LYMPHOCYTES % 5.3 % (15.0-51.0); MEAN CORPUSCULAR HEMOGLOBIN 28.5 pg (29.0-33.0); MEAN CORPUSCULAR HGB CONC 32.6 g/dl (32.0-37.0); MEAN CORPUSCULAR VOLUME 87.5 fl (82.0-101.0); MEAN PLATELET VOLUME 10.3 fl (7.4-10.4); MONOCYTE # 0.8 10^3/ul (0.3-0.9); MONOCYTES % 5.6 % (0.0-11.0); NEUTROPHIL # 12.2 10^3/ul (1.6-7.5); NEUTROPHILS % 87.8 % (39.0-77.0); PLATELET COUNT 201 10^3/UL (140-415); RED BLOOD COUNT 3.12 10^6/ul (4.20-5.40); RED CELL DISTRIBUTION WIDTH 14.9 % (11.5-14.5); WHITE BLOOD COUNT 13.9 10^3/ul (4.8-10.8)
[2017-01-01 06:11] LABS: POTASSIUM 4.7 mmol/L (3.5-5.1)
[2017-01-01 06:14] LABS: CREATININE 1.75 mg/dl (0.44-1.00)
[2017-01-01 06:15] LABS: CALCIUM 8.1 mg/dl (8.4-10.2); MAGNESIUM 2.3 mg/dl (1.7-2.5)
[2017-01-01 07:15] LABS: CARCINOEMBRYONIC ANTIGEN 4.8 ng/ml (0.0-5.0)
[2017-01-01 07:19] LABS: CANCER ANTIGEN 19-9 8.5 U/ml (0.0-37.0)
[2017-01-01] MEDS: ALBUTEROL/IPRATROPIUM (NEB) 3 ML AMP HHN SCH ×3 (08:01→19:41)
--- NOTE | 2017-01-01 09:24 | GILP ---
DATE OF PROCEDURE: NAME OF PROCEDURE: Endoscopic retrograde cholangiopancreatography with endoscopic retrograde sphinc terotomy, brushings in the distal common bile duct and stent placement. SURGEON: Ceasar Jewell MD. PREMEDICATION: General anesthesia by Anesthesiologist. INSTRUMENT USED: Olympus side-view panendoscope. TECHNIQUE: After informed consent, with the patient/relatives understanding the procedure, its indic ations, potential risks and complications, including but not limited to: allergic reaction, bleeding , perforation or infection, and after all pertinent questions were answered to the patients satisfac tion, the patient/relatives signed witnessed informed consent. Following this, premedication was administered slowly IV push under careful cardiovascular and respi ratory monitoring with pulse oximetry, automatic blood pressure and alarm security or surveillance monitor. Once the sedative effect was achieved the patient was place in the prone position in the radiology s pecial procedures suite; the side viewing panendoscope was introduced and advanced under visual cont rol. Careful examination of the upper gastrointestinal tract, both on insertion as well as withdrawal of the instrument disclosed the following findings: ESOPHAGUS: The mucosa of the entire esophagus appears within normal limits. There is no evidence of esophagitis, varices, neoplasm or stricture. No Hiatal Hernia identified. STOMACH: Upon entrance to the stomach. There is a small antral gastric ulceration rather superficia l, measuring approximately 6 mm. PYLORUS: The pylorus appears patent and within normal limits. DUODENUM: The duodenum appears unremarkable. The ampulla was identified and appears small and other schulz unremarkable. AMPULLA OF VATER: The ampulla was cannulated, opacifying the pancreatic duct which was purposely not filled to capacity and appears slightly dilated, but with no significant abnormalities. We then se lectively cannulated the biliary tree. The biliary tree is massively dilated to at least 18 mm in m aximum diameter. However, there is no clear intraductal abnormalities. A balloon catheter measurin g 15- 18 mm was utilized to sweep the biliary tree an attempt to identify any floating stones could be present, that may be obscured by the significant dilatation of the biliary tree. There appeared to be no intraductal pathology and the distal common bile duct and ____ regular fashion which is not consistent with a neoplastic process. A small sphincterotomy was performed and upon doing this a l arge amount of bile started emptying suggesting that indeed papillary stricture was present. The ar ea was brushed for cytology. Following this, a 10-Tamazight 7 cm stent was placed to guarantee adequat e drainage. IMPRESSION: 1. Small 6 mm antral gastric ulceration, benign endoscopic appearance. 2. Normal ampulla of Vater. 3. Normal partially filled pancreatogram with exception of slight dilatation in the head of the [place] creas. 4. Markedly dilated common bile duct, we no definitive stones or intraductal pathology suggestive o f ampullary stricture post sphincterotomy and brushings. 5. Post-placement of 10-Tamazight 7 cm stent with excellent drainage. PLAN: Review the cytology. Monitor LFTs, obtain CA 19-9 and CEA titers. Further recommendations w ill depend on the patient's clinical course, cholecystectomy if the patient is stable to undergo tomasa alyce. Dictated By: CEASAR ROMERO Conf#: [id number] DID#: [id number]
--- NOTE | 2017-01-01 10:36 | CONS ---
Date/Time of Note Date/Time of Note DATE: 01/01/17 TIME: 10:31 Consult Date/Type/Reason Admit Date/Time December 29, 2016 at 18:05 Initial Consult Date 12/30/16 Type of Consultation: neph Ordering Provider: MARIBELL FLYNN This is a 61-year-old female with a past medical history of CKD stage IV, baseline creatinine around 2 to 2.5 mg/dL, history of cholelithiasis, who presents to [facility] with complaints of abdominal pain. The patient states that she has been having ongoing abdominal pain, mid epigastric, for the last 2 days associated with nausea and vomiting. Pain is aching, sharp, non-radiation. The patient came to the emergency room for evaluation. Upon arrival, the patient had a CT scan abdomen and pelvis which showed findings of distended gallbladder, thickened, possible cholecystitis as well as possible ischemic bowel. The patient also noted to have atrophic right kidney with a normal sized left kidney. The patient was placed on IV antibiotics, was given pain medications and admitted to medical/surgical for evaluation. Please note, in the emergency room, the patient also had a CT angio with contrast which showed no evidence of mesenteric ischemia or possibility of choledocholithiasis. In terms of the patient's renal history, the patient says she has underlying chronic kidney disease with a unilateral functioning kidney. The patient states that she has 1 atrophic kidney. The patient denies any recent NSAID use. Denies any recent diuretic use, denies any recent antibiotic use. The patient denies any recent rashes, hemoptysis, hemetemesis, hematochezia or any frothy urine. The patient states she has underlying CKD and believes her creatinine is around 2 to 2.5 mg/dL. seen by gi and sp egd 1. Small 6 mm antral gastric ulceration, benign endoscopic appearance. 2. Normal ampulla of Vater. 3. Normal partially filled pancreatogram with exception of slight dilatation in the head of the pancreas. 4. Markedly dilated common bile duct, we no definitive stones or intraductal pathology suggestive of ampullary stricture post sphincterotomy and brushings. 5. Post-placement of 10-[place] 7 cm stent with excellent drainage. continues good uo. poc reviewed with dr. clark. MEDICATIONS: The patient's medications have been reviewed. REVIEW OF SYSTEMS: A 14-point review of systems was conducted. Pertinent positives in HPI, otherwise negative. PHYSICAL EXAMINATION: VITAL SIGNS: Blood pressure is 100/58, respiration 18, pulse 87, temperature 98.5. HEENT: Head is normocephalic. Pupils are reactive to light. NECK: Supple. HEART: Regular rate. LUNGS: Show diminished breath sounds at base, otherwise clear. ABDOMEN: Soft, positive tenderness to palpation, positive rebound, positive guarding. EXTREMITIES: Negative for clubbing, cyanosis, no edema. MUSCULOSKELETAL: No joint effusions. NEUROLOGIC: No focal deficits. Objective Vital Signs Date Time Temp Pulse Resp B/P Pulse Ox O2 Delivery O2 Flow Rate FiO2 01/01/17 09:00 87 19 95/65 98 Nasal Cannula 2.0 01/01/17 08:01 32 01/01/17 08:00 97.4 Intake and Output 12/31/16 12/31/16 01/01/17 15:00 23:00 07:00 Intake Total 500 ml 2000 ml Output Total 550 ml 700 ml Balance -50 ml 1300 ml Results/Medications Result Diagram: 01/01/17 0440 01/01/17 0440 Results 24 hrs Laboratory Tests Test 12/31/16 19:00 01/01/17 04:40 Blood Gas Specimen Source Blood arterial Arterial Blood Date Drawn 12/31/2016 7:25:17 PM Arterial Blood pH (Temp corrected) 7.242 *L Arterial Blood pCO2 (Temp correct) 39.7 Arterial Blood pO2 (Temp corrected) 77.3 L Arterial Blood HCO3 16.7 L Arterial Blood Base Excess -9.9 L Arterial Blood Oxygen Saturation 93.2 L Khai Test ACCEPTAB Arterial Blood Gas Puncture Site Right Radial Arterial Blood Carboxyhemoglobin 0.4 Arterial Blood Methemoglobin 0.1 Blood Gas A-a O2 Differential 126.1 H Oxyhemoglobin Percent 92.7 L Total Hemoglobin 8.7 L Blood Gas Temperature 37.0 Blood Gas Respiration Rate 15.0 Blood Gas Actual Respiration Rate 17 Blood Gas Modality MASK - BIPAP FiO2 35.0 Blood Gas IPAP/EPAP Ratio 20/5 Blood Gas Critical Value Read Back A PRITI QUEZADA Blood Gas Notified Whom Blood Gas Notified Time 12/31/2016 7:31:11 PM White Blood Count 13.9 H Red Blood Count 3.12 L Hemoglobin 8.9 L Hematocrit 27.3 L Mean Corpuscular Volume 87.5 Mean Corpuscular Hemoglobin 28.5 L Mean Corpuscular Hemoglobin Concent 32.6 Red Cell Distribution Width 14.9 H Platelet Count 201 Mean Platelet Volume 10.3 Neutrophils % 87.8 H Lymphocytes % 5.3 L Monocytes % 5.6 Eosinophils % 0.0 Basophils % 0.1 Nucleated Red Blood Cells % 0.0 Neutrophils # 12.2 H Lymphocytes # 0.7 L Monocytes # 0.8 Eosinophils # 0.0 Basophils # 0.0 Nucleated Red Blood Cells # 0.0 Sodium Level 138 Potassium Level 4.7 Chloride Level 111 H Carbon Dioxide Level 16 L Anion Gap 16 Blood Urea Nitrogen 37 #H Creatinine 1.75 H Glucose Level 109 Calcium Level 8.1 L Phosphorus Level 5.0 H Magnesium Level 2.3 Carcinoembryonic Antigen 4.8 CA 19-9 Antigen 8.5 Medications Current Medications Ciprofloxacin/ Dextrose 200 ml @ 200 mls/hr Q24H IVPB Last administered on 17:50; Admin Dose 200 MLS/HR; Start 12/29/16 at 18:30 Metronidazole (Flagyl 500 Mg (Pmx)) 100 ml @ 100 mls/hr Q8 IVPB Last administered on 01/01/17 05:22; Admin Dose 100 MLS/HR; Start 12/29/16 at 22:00 Morphine Sulfate (morphine) 2 mg Q4H PRN IV PAIN Last administered on 09:45; Admin Dose 2 MG; Start 12/29/16 at 18:30 Famotidine (Pepcid) 20 mg Q24H PO Last administered on 01/01/17 01:01; Admin Dose 20 MG; Start 12/29/16 at 21:00 Docusate Sodium (Colace) 100 mg BID PO Last administered on 01/01/17 08:49; Admin Dose 100 MG; Start 12/29/16 at 21:00 Miscellaneous Information Patients own medicat... BID@10,16 XX ; Start 12/30/16 at 10:00 Sodium Chloride (NS) 1,000 ml @ 75 mls/hr [id number] IV Last administered on 12/31 23:12; Admin Dose 75 MLS/HR; Start 12/31/16 at 09:30 Salmeterol Xinafoate/ Fluticasone 1 inh 1 inh BID INH Last administered on 12/31 14:22; Admin Dose 1 INH; Start 12/31/16 at 13:00 Ferric Sodium Gluconate Complex/ Sodium Chloride (Ferrlecit/NS) 110 ml @ 100 mls/hr Q24H IVPB Last administered on 12/31/16 15:41; Admin Dose 100 MLS/HR; Start 12/31/16 at 14:00; Stop 01/02/17 at 15:05 Assessment/Plan Chief Complaint/Hosp Course 1. Nonoliguric acute kidney injury on top of chronic kidney disease stage IV with a unilateral functioning kidney. Etiology of current acute kidney injury appears to be hemodynamics, possible sepsis. The patient's initial urinalysis is bland. Nonactive sediment. nonoliguric, less than 1 gm proteinuria, and low FENa. Patient's imaging study shows an atrophic right kidney and normal left kidney. continue current treatment plan. Continue IV fluids, continue antibiotics, avoid hemodynamic fluctuations. Will otherwise continue supportive care, renally dose meds, avoid nephrotoxins, monitor closely with you. 2. Chronic kidney disease stage IV with unilateral functioning kidney. The patient has atrophic right kidney, which appears to have been present for several years. Unclear if this is congenital or due to obstructive ureterolithiasis. Plan at this point is to continue treating acute kidney injury as stated above, will check renal ultrasound and monitor closely. 3. Mineral bone disorder. The patient is hypophosphatemic secondary to acute kidney injury and chronic kidney disease. Continue to monitor calcium and phosphorus levels. 4. Mild hyponatremia. Continue to monitor sodium levels closely. Limit free water intake. 5. Hypermagnesemia secondary to acute kidney injury. We will continue to monitor. 6. Anemia. Continue to monitor hemoglobin and hematocrit levels. 7. Acute cholecystitis with possible underlying choledocholithiasis. The patient is currently on IV antibiotics. GI consult and a general surgical consults pending. We will continue. 8. Leukocytosis, likely secondary to acute cholecystitis. Possible sepsis. The patient is currently on broad spectrum antibiotics. Cultures have been sent. Continue to monitor. 9. Gastrointestinal and deep venous thrombosis prophylaxis. Problems: EVIN SÁNCHEZ MD January 01, 2017 10:36
[2017-01-01] MEDS: SALMETEROL/FLUTICASONE 250/50 INHA INH SCH ×2 (10:42→21:44)
[2017-01-01] MEDS ORDERED: SUMATRIPTAN 50 MG TAB PO ONE (11:00)
[2017-01-01] MEDS: SOD CHLORIDE 0.9% 1,000 ML IV SCH ×2 (11:32→18:47)
--- NOTE | 2017-01-01 11:33 | PN ---
Date/Time of Note Date/Time of Note DATE: 01/01/17 TIME: 11:26 Assessment/Plan VTE Prophylaxis VTE Prophylaxis Intervention: SCD's Lines/Catheters IV Catheter Type (from [facility]): Peripheral IV Urinary Cath still in place: No Assessment/Plan Chief Complaint/Hosp Course Assessment and plan 1. Symptomatic cholelithiasis with suspected choledocholithiasis. Patient status post ERCP. Per report there was seen dilated common bile duct with no definitive stones. Findings suggestive of ampullary stricture. Patient did receive sphincterotomy. Continue to monitor LFT. Tentative plan for laparoscopic cholecystectomy per surgeon. Continue IV hydration and analgesics. 2. Leukocytosis secondary to #1. Afebrile at present. Continue antibiotics. 3. CKD. Painter Drum was consulted. Follow up with renal panel. Monitor for electronic imbalances. 4. COPD. No active exacerbation. Cigarette smoking cessation advised. Bronchodilators as needed. 5. Respiratory failure status post ERCP. He can extubated at this time. Improved. Continue with O2 supplement. DVT prophylaxis: SCDs GERD prophylaxis: H2 hamzah Disposition and plan: Continue IV hydration and analgesics. On antibiotics. Transfer to [facility]. Problems: Subjective 24 Hr Interval Summary Free Text/Dictation still reports abd pain on RUQ Exam/Review of Systems Vital Signs Vitals Vital Signs Date Time Temp Pulse Resp B/P Pulse Ox O2 Delivery O2 Flow Rate FiO2 01/01/17 09:00 87 19 95/65 98 Nasal Cannula 2.0 01/01/17 08:01 32 01/01/17 08:00 97.4 Intake and Output 12/31/16 12/31/16 01/01/17 15:00 23:00 07:00 Intake Total 500 ml 2000 ml Output Total 550 ml 700 ml Balance -50 ml 1300 ml Exam Constitutional: alert, oriented Head: normocephalic Eyes: nl conjunctiva Neck: supple, No jvd Respiratory: clear to auscultation, normal air movement Cardiovascular: regular rate and rhythm Gastrointestinal: tender (RUQ ) Musculoskeletal: nl extremities to inspection Extremities: normal pulses Neurological: nl mental status, nl speech Results Result Diagram: 01/01/170 01/01/17439 Results 24 hrs Laboratory Tests Test 12/31/16 19:00 01/01/17 04:40 Blood Gas Specimen Source Blood arterial Arterial Blood Date Drawn 12/31/2016 7:25:17 PM Arterial Blood pH (Temp corrected) 7.242 *L Arterial Blood pCO2 (Temp correct) 39.7 Arterial Blood pO2 (Temp corrected) 77.3 L Arterial Blood HCO3 16.7 L Arterial Blood Base Excess -9.9 L Arterial Blood Oxygen Saturation 93.2 L Khai Test ACCEPTAB Arterial Blood Gas Puncture Site Right Radial Arterial Blood Carboxyhemoglobin 0.4 Arterial Blood Methemoglobin 0.1 Blood Gas A-a O2 Differential 126.1 H Oxyhemoglobin Percent 92.7 L Total Hemoglobin 8.7 L Blood Gas Temperature 37.0 Blood Gas Respiration Rate 15.0 Blood Gas Actual Respiration Rate 17 Blood Gas Modality MASK - BIPAP FiO2 35.0 Blood Gas IPAP/EPAP Ratio 20/ Blood Gas Critical Value Read Back A PRITI QUEZADA Blood Gas Notified Whom Blood Gas Notified Time 12/31/2016 7:31:11 PM White Blood Count 13.9 H Red Blood Count 3.12 L Hemoglobin 8.9 L Hematocrit 27.3 L Mean Corpuscular Volume 87.5 Mean Corpuscular Hemoglobin 28.5 L Mean Corpuscular Hemoglobin Concent 32.6 Red Cell Distribution Width 14.9 H Platelet Count 201 Mean Platelet Volume 10.3 Neutrophils % 87.8 H Lymphocytes % 5.3 L Monocytes % 5.6 Eosinophils % 0.0 Basophils % 0.1 Nucleated Red Blood Cells % 0.0 Neutrophils # 12.2 H Lymphocytes # 0.7 L Monocytes # 0.8 Eosinophils # 0.0 Basophils # 0.0 Nucleated Red Blood Cells # 0.0 Sodium Level 138 Potassium Level 4.7 Chloride Level 111 H Carbon Dioxide Level 16 L Anion Gap 16 Blood Urea Nitrogen 37 #H Creatinine 1.75 H Glucose Level 109 Calcium Level 8.1 L Phosphorus Level 5.0 H Magnesium Level 2.3 Carcinoembryonic Antigen 4.8 CA 19-9 Antigen 8.5 Medications Medications Current Medications Ciprofloxacin/ Dextrose 200 ml @ 200 mls/hr Q24H IVPB Last administered on 17:50; Admin Dose 200 MLS/HR; Start 12/29/16 at 18:30 Metronidazole (Flagyl 500 Mg (Pmx)) 100 ml @ 100 mls/hr Q8 IVPB Last administered on 01/01/17 05:22; Admin Dose 100 MLS/HR; Start 12/29/16 at 22:00 Morphine Sulfate (morphine) 2 mg Q4H PRN IV PAIN Last administered on 09:45; Admin Dose 2 MG; Start 12/29/16 at 18:30 Famotidine (Pepcid) 20 mg Q24H PO Last administered on 01/01/17 01:01; Admin Dose 20 MG; Start 12/29/16 at 21:00 Docusate Sodium (Colace) 100 mg BID PO Last administered on 01/01/17 08:49; Admin Dose 100 MG; Start 12/29/16 at 21:00 Miscellaneous Information Patients own medicat... BID@10,16 XX ; Start 12/30/16 at 10:00 Sodium Chloride (NS) 1,000 ml @ 75 mls/hr [id number] IV Last administered on 12/31 23:12; Admin Dose 75 MLS/HR; Start 12/31/16 at 09:30 Salmeterol Xinafoate/ Fluticasone 1 inh 1 inh BID INH Last administered on 01/01 10:42; Admin Dose 1 INH; Start 12/31/16 at 13:00 Ferric Sodium Gluconate Complex/ Sodium Chloride (Ferrlecit/NS) 110 ml @ 100 mls/hr Q24H IVPB Last administered on 12/31/16 15:41; Admin Dose 100 MLS/HR; Start 12/31/16 at 14:00; Stop 01/02/17 at 15:05 MARY CHAO January 01, 2017 11:33
--- NOTE | 2017-01-01 11:53 | RADRPT ---
PROCEDURE: X-ray fluoroscopy guidance CLINICAL INDICATION: Abdominal pain TECHNIQUE: Fluoroscopic guidance was utilized for ERCP. COMPARISON: None available FINDINGS: Distended common bile duct is noted. Balloon sweep was performed. 233.4 seconds of fluoroscopy time was utilized for the procedure. 25 images were obtained during the procedure in progress. IMPRESSION: 1. X-ray fluoroscopic guidance, as above. RPTAT: QQ .Hao Ortega MD, MD Date Time Electronically viewed and signed by .Hao Ortega MD, on 01/01/2017 11:53 .R/
--- NOTE | 2017-01-01 12:46 | PN ---
Date/Time of Note Date/Time of Note DATE: 01/01/17 TIME: 12:36 Assessment/Plan VTE Prophylaxis VTE Prophylaxis Intervention: SCD's Lines/Catheters IV [facility] Type (from [facility]): Peripheral IV Urinary Cath still in place: No Assessment/Plan Assessment/Plan * Abdominal pain Cholecystitis with chololithiasis ERCP 12/31/2016 Small 6 mm antral gastric ulceration, benign endoscopic appearance. Normal ampulla of Vater. . Normal partially filled pancreatogram with exception of slight dilatation in the head of the pancreas. . Markedly dilated common bile duct, we no definitive stones or intraductal pathology suggestive of ampullary stricture post sphincterotomy and brushings. Post-placement of 10-Serbian 7 cm stent with excellent drainage * Hx of COPD * Chronic kidney disease Plan * awaiting biopsy,CEA,Ca19-9 results * continue present management Subjective 24 Hr Interval Summary Free Text/Dictation * Course reviewed with RN * Patient seen and examined * ERCP 12/31/2016 Small 6 mm antral gastric ulceration, benign endoscopic appearance. . Normal ampulla of Vater. Normal partially filled pancreatogram with exception of slight dilatation in the head of the pancreas. . Markedly dilated common bile duct, we no definitive stones or intraductal pathology suggestive of ampullary stricture post sphincterotomy and brushings. . Post-placement of 10-Serbian 7 cm stent with excellent drainage. * denies abdominal pain Exam/Review of Systems Vital Signs Vitals Vital Signs Date Time Temp Pulse Resp B/P Pulse Ox O2 Delivery O2 Flow Rate FiO2 01/01/17 11:00 84 18 151/70 98 Nasal Cannula 2.0 01/01/17 08:01 32 01/01/17 08:00 97.4 Intake and Output 12/31/16 12/31/16 01/01/17 15:00 23:00 07:00 Intake Total 500 ml 2000 ml Output Total 550 ml 700 ml Balance -50 ml 1300 ml Exam Constitutional: alert, frail Eyes: nl conjunctiva, nl sclera Neck: non-tender, supple Respiratory: congested cough, diminished breath sounds Cardiovascular: nl pulses, regular rate and rhythm Gastrointestinal: nl liver, spleen, non-tender, soft Musculoskeletal: nl extremities to inspection Extremities: normal pulses Results Result Diagram: 01/01/17 0440 01/01/17 0440 Results 24 hrs Laboratory Tests Test 12/31/16 19:00 01/01/17 04:40 Blood Gas Specimen Source Blood arterial Arterial Blood Date Drawn 12/31/2016 7:25:17 PM Arterial Blood pH (Temp corrected) 7.242 *L Arterial Blood pCO2 (Temp correct) 39.7 Arterial Blood pO2 (Temp corrected) 77.3 L Arterial Blood HCO3 16.7 L Arterial Blood Base Excess -9.9 L Arterial Blood Oxygen Saturation 93.2 L Khai Test ACCEPTAB Arterial Blood Gas Puncture Site Right Radial Arterial Blood Carboxyhemoglobin 0.4 Arterial Blood Methemoglobin 0.1 Blood Gas A-a O2 Differential 126.1 H Oxyhemoglobin Percent 92.7 L Total Hemoglobin 8.7 L Blood Gas Temperature 37.0 Blood Gas Respiration Rate 15.0 Blood Gas Actual Respiration Rate 17 Blood Gas Modality MASK - BIPAP FiO2 35.0 Blood Gas IPAP/EPAP Ratio 01/01 Blood Gas Critical Value Read Back A PRITI QUEZADA Blood Gas Notified Whom Blood Gas Notified Time 12/31/2016 7:31:11 PM White Blood Count 13.9 H Red Blood Count 3.12 L Hemoglobin 8.9 L Hematocrit 27.3 L Mean Corpuscular Volume 87.5 Mean Corpuscular Hemoglobin 28.5 L Mean Corpuscular Hemoglobin Concent 32.6 Red Cell Distribution Width 14.9 H Platelet Count 201 Mean Platelet Volume 10.3 Neutrophils % 87.8 H Lymphocytes % 5.3 L Monocytes % 5.6 Eosinophils % 0.0 Basophils % 0.1 Nucleated Red Blood Cells % 0.0 Neutrophils # 12.2 H Lymphocytes # 0.7 L Monocytes # 0.8 Eosinophils # 0.0 Basophils # 0.0 Nucleated Red Blood Cells # 0.0 Sodium Level 138 Potassium Level 4.7 Chloride Level 111 H Carbon Dioxide Level 16 L Anion Gap 16 Blood Urea Nitrogen 37 #H Creatinine 1.75 H Glucose Level 109 Calcium Level 8.1 L Phosphorus Level 5.0 H Magnesium Level 2.3 Carcinoembryonic Antigen 4.8 CA 19-9 Antigen 8.5 Medications Medications Current Medications Ciprofloxacin/ Dextrose 200 ml @ 200 mls/hr Q24H IVPB Last administered on 17:50; Admin Dose 200 MLS/HR; Start 12/29/16 at 18:30 Metronidazole (Flagyl 500 Mg (Pmx)) 100 ml @ 100 mls/hr Q8 IVPB Last administered on 01/01/17 05:22; Admin Dose 100 MLS/HR; Start 12/29/16 at 22:00 Morphine Sulfate (morphine) 2 mg Q4H PRN IV PAIN Last administered on 09:45; Admin Dose 2 MG; Start 12/29/16 at 18:30 Famotidine (Pepcid) 20 mg Q24H PO Last administered on 01/01/17 01:01; Admin Dose 20 MG; Start 12/29/16 at 21:00 Docusate Sodium (Colace) 100 mg BID PO Last administered on 01/01/17 08:49; Admin Dose 100 MG; Start 12/29/16 at 21:00 Miscellaneous Information Patients own medicat... BID@10,16 XX ; Start 12/30/16 at 10:00 Sodium Chloride (NS) 1,000 ml @ 75 mls/hr [id number] IV Last administered on 12/31 23:12; Admin Dose 75 MLS/HR; Start 12/31/16 at 09:30 Salmeterol Xinafoate/ Fluticasone 1 inh 1 inh BID INH Last administered on 01/01 10:42; Admin Dose 1 INH; Start 12/31/16 at 13:00 Ferric Sodium Gluconate Complex/ Sodium Chloride (Ferrlecit/NS) 110 ml @ 100 mls/hr Q24H IVPB Last administered on 12/31/16 15:41; Admin Dose 100 MLS/HR; Start 12/31/16 at 14:00; Stop 01/02/17 at 15:05 DELGADO RICHARDS MD January 01, 2017 12:46
[2017-01-01] MEDS: SOD FERRIC GLUC COMPLX 125 MG in SOD CHLORIDE 0.9% 100 ML IVPB SCH (13:10)
--- NOTE | 2017-01-01 14:29 | PN ---
Date/Time of Note Date/Time of Note DATE: 01/01/17 TIME: 14:24 Assessment/Plan Lines/Catheters IV Catheter Type (from Nrs): Peripheral IV Haley in Place (from Nrs): No Assessment/Plan Assessment/Plan [facility] Progress Note Date of Service: 01/01/17 Today's Impression & Plan: Overall stable appears improved from 2 days ago. Renal function a bit better. With above assessment, I've recommended the following for today: 1. Cont aggressive medical management 2. Lap radha hopefully Tuesday Thank you again for your great care of this very pleasant patient and wonderful family. If there are any questions, please feel free to call me at [phone]. TOTAL VISIT TIME: 20 minutes of which more than half was spent in the operating room, as well as coordination of care between multiple physicians and providers. Disclaimer: Inadvertent spelling or grammatical errors are likely due to EHR/ dictation software use and do not reflect on the overall quality of patient care. Updated Clinical Summary: A very pleasant 61-year-old lady admitted through the [facility] Emergency Room on 12/29/2016 with evidence for possible acute cholecystitis as well as choledocholithiasis. COMORBIDITIES: 1. BMI 26.9. 2. Smoking history. 3. Renal insufficiency. 4. History of known cholelithiasis. 5. Status post appendectomy. 6. Status post hysterectomy. Subjective: No major events or complaints; still with abd pain with some radiation to R flank and back; seems under control with medications; some nausea but no v/d; no sob or cp; + flatus; - BM; - activity Objective: Vitals: See below Exam: GENERAL: On exam, the patient was laying in bed and appeared to be comfortable and in no acute distress. ABDOMEN: Soft, nontender on the left side and mild to moderately tender on the right upper quadrant, and nondistended. There are no peritoneal signs or guarding. SKIN: Skin appears to be pink and feels warm to touch. NEUROLOGIC: Patient is awake, alert, and follows commands appropriately. Exam/Review of Systems Vital Signs Vitals Vital Signs Date Time Temp Pulse Resp B/P Pulse Ox O2 Delivery O2 Flow Rate FiO2 01/01/17 13:00 90 24 167/94 100 Nasal Cannula 2.0 01/01/17 12:00 97.7 01/01/17 08:01 32 Intake and Output 12/31/16 12/31/16 01/01/17 15:00 23:00 07:00 Intake Total 500 ml 2000 ml Output Total 550 ml 700 ml Balance -50 ml 1300 ml Results Result Diagram: 01/01/17 0440 01/01/17 0440 NAIDA REDDY M.D. January 01, 2017 14:29
[2017-01-01] MEDS: CIPROFLOXACIN 400MG/D5W 200 ML IVPB SCH (18:47)
[2017-01-02] MEDS: SUMATRIPTAN 50 MG TAB PO PRN ×2 (01:26→10:49)
[2017-01-02] MEDS: SOD CHLORIDE 0.9% 1,000 ML IV SCH ×3 (01:30→17:45)
[2017-01-02] MEDS: metroNIDAZOLE 500 MG/NS (PMX) 100 ML IVPB SCH ×3 (05:16→21:52)
[2017-01-02] MEDS: morphine 2 MG INJ IV PRN ×3 (05:21→20:15)
[2017-01-02 07:38] VITALS: BP 113/63; RESP 18
[2017-01-02] MEDS: ALBUTEROL/IPRATROPIUM (NEB) 3 ML AMP HHN SCH ×3 (08:07→19:40)
[2017-01-02] MEDS: DOCUSATE SODIUM 100 MG CAP PO SCH ×2 (08:15→20:14)
[2017-01-02] MEDS: SALMETEROL/FLUTICASONE 250/50 INHA INH SCH ×2 (08:15→20:18)
--- NOTE | 2017-01-02 10:03 | CONS ---
Date/Time of Note Date/Time of Note DATE: 01/02/17 TIME: 10:02 Consult Date/Type/Reason Admit Date/Time December 29, 2016 at 18:05 Initial Consult Date 12/30/16 Type of Consultation: neph Ordering Provider: MARIBELL FLYNN This is a 61-year-old female with a past medical history of CKD stage IV, baseline creatinine around 2 to 2.5 mg/dL, history of cholelithiasis, who presents to [facility] with complaints of abdominal pain. The patient states that she has been having ongoing abdominal pain, mid epigastric, for the last 2 days associated with nausea and vomiting. Pain is aching, sharp, non-radiation. The patient came to the emergency room for evaluation. Upon arrival, the patient had a CT scan abdomen and pelvis which showed findings of distended gallbladder, thickened, possible cholecystitis as well as possible ischemic bowel. The patient also noted to have atrophic right kidney with a normal sized left kidney. The patient was placed on IV antibiotics, was given pain medications and admitted to medical/surgical for evaluation. Please note, in the emergency room, the patient also had a CT angio with contrast which showed no evidence of mesenteric ischemia or possibility of choledocholithiasis. In terms of the patient's renal history, the patient says she has underlying chronic kidney disease with a unilateral functioning kidney. The patient states that she has 1 atrophic kidney. The patient denies any recent NSAID use. Denies any recent diuretic use, denies any recent antibiotic use. The patient denies any recent rashes, hemoptysis, hemetemesis, hematochezia or any frothy urine. The patient states she has underlying CKD and believes her creatinine is around 2 to 2.5 mg/dL. seen by gi and sp egd 1. Small 6 mm antral gastric ulceration, benign endoscopic appearance. 2. Normal ampulla of Vater. 3. Normal partially filled pancreatogram with exception of slight dilatation in the head of the pancreas. 4. Markedly dilated common bile duct, we no definitive stones or intraductal pathology suggestive of ampullary stricture post sphincterotomy and brushings. 5. Post-placement of 10-Sri [place]ankan 7 cm stent with excellent drainage. continues good uo. now transferred to [facility]. poc reviewed with dr. clark. PHYSICAL EXAMINATION: VITAL SIGNS: Blood pressure is 100/58, respiration 18, pulse 87, temperature 98.5. HEENT: Head is normocephalic. Pupils are reactive to light. NECK: Supple. HEART: Regular rate. LUNGS: Show diminished breath sounds at base, otherwise clear. ABDOMEN: Soft, positive tenderness to palpation, positive rebound, positive guarding. EXTREMITIES: Negative for clubbing, cyanosis, no edema. MUSCULOSKELETAL: No joint effusions. NEUROLOGIC: No focal deficits. Objective Vital Signs Date Time Temp Pulse Resp B/P Pulse Ox O2 Delivery O2 Flow Rate FiO2 01/02/17 08:08 68 22 98 Nasal Cannula 3.0 01/02/17 07:38 98.6 113/63 01/01/17 16:46 32 Intake and Output 01/01/17 01/01/17 01/02/17 15:00 23:00 07:00 Intake Total 140 ml 1610 ml 1680 ml Output Total 650 ml 200 ml 2200 ml Balance -510 ml 1410 ml -520 ml Results/Medications Result Diagram: 01/01/1743901/01/17 0440 Medications Current Medications Ciprofloxacin/ Dextrose 200 ml @ 200 mls/hr Q24H IVPB Last administered on 18:47; Admin Dose 200 MLS/HR; Start 12/29/16 at 18:30 Metronidazole (Flagyl 500 Mg (Pmx)) 100 ml @ 100 mls/hr Q8 IVPB Last administered on 01/02/17 05:16; Admin Dose 100 MLS/HR; Start 12/29/16 at 22:00 Morphine Sulfate (morphine) 2 mg Q4H PRN IV PAIN Last administered on 05:21; Admin Dose 2 MG; Start 12/29/16 at 18:30 Famotidine (Pepcid) 20 mg Q24H PO Last administered on 01/01/17 21:44; Admin Dose 20 MG; Start 12/29/16 at 21:00 Docusate Sodium (Colace) 100 mg BID PO Last administered on 01/02/17 08:15; Admin Dose 100 MG; Start 12/29/16 at 21:00 Miscellaneous Information Patients own medicat... BID@10,16 XX ; Start 12/30/16 at 10:00 Sodium Chloride (NS) 1,000 ml @ 75 mls/hr [id number] IV Last administered on 01/01 18:47; Admin Dose 75 MLS/HR; Start 12/31/16 at 09:30 Salmeterol Xinafoate/ Fluticasone 1 inh 1 inh BID INH Last administered on 01/02 08:15; Admin Dose 1 INH; Start 12/31/16 at 13:00 Ferric Sodium Gluconate Complex/ Sodium Chloride (Ferrlecit/NS) 110 ml @ 100 mls/hr Q24H IVPB Last administered on 01/01/17 13:10; Admin Dose 100 MLS/HR; Start 12/31/16 at 14:00; Stop 01/02/17 at 15:05 Sumatriptan Succinate (Imitrex) 50 mg DAILY PRN PO FOR MIGRAINE.MRX1 IN 24HOUR Last administered on 01/02/17 01:26; Admin Dose 50 MG; Start 01/02/17 at 01:00 Assessment/Plan Chief Complaint/Hosp Course 1. Nonoliguric acute kidney injury on top of chronic kidney disease stage IV with a unilateral functioning kidney. Etiology of current acute kidney injury appears to be hemodynamics, possible sepsis. The patient's initial urinalysis is bland. Nonactive sediment. nonoliguric, less than 1 gm proteinuria, and low FENa. Patient's imaging study shows an atrophic right kidney and normal left kidney. continue current treatment plan. Continue IV fluids, continue antibiotics, avoid hemodynamic fluctuations. Will otherwise continue supportive care, renally dose meds, avoid nephrotoxins, monitor closely with you. 2. Chronic kidney disease stage IV with unilateral functioning kidney. The patient has atrophic right kidney, which appears to have been present for several years. Unclear if this is congenital or due to obstructive ureterolithiasis. Plan at this point is to continue treating acute kidney injury as stated above, will check renal ultrasound and monitor closely. 3. Mineral bone disorder. The patient is hypophosphatemic secondary to acute kidney injury and chronic kidney disease. Continue to monitor calcium and phosphorus levels. 4. Mild hyponatremia. Continue to monitor sodium levels closely. Limit free water intake. 5. Hypermagnesemia secondary to acute kidney injury. We will continue to monitor. 6. Anemia. Continue to monitor hemoglobin and hematocrit levels. 7. Acute cholecystitis with possible underlying choledocholithiasis. The patient is currently on IV antibiotics. GI consult and a general surgical consults pending. We will continue. 8. Leukocytosis, likely secondary to acute cholecystitis. Possible sepsis. The patient is currently on broad spectrum antibiotics. Cultures have been sent. Continue to monitor. 9. Gastrointestinal and deep venous thrombosis prophylaxis. Problems: EVIN SÁNCHEZ MD January 02, 2017 10:03
[2017-01-02 11:32] LABS: ADD SCAN DIFF NO
[2017-01-02 11:33] LABS: BASOPHILS % 0.3 % (0.0-2.0); EOSINOPHILS # 0.1 10^3/ul (0.0-0.5); EOSINOPHILS % 0.6 % (0.0-7.0); HEMATOCRIT 29.9 % (37.0-47.0); HEMOGLOBIN 9.6 g/dl (12.0-16.0); LYMPHOCYTES # 1.2 10^3/ul (0.8-2.9); LYMPHOCYTES % 7.5 % (15.0-51.0); MEAN CORPUSCULAR HEMOGLOBIN 28.1 pg (29.0-33.0); MEAN CORPUSCULAR HGB CONC 32.1 g/dl (32.0-37.0); MEAN CORPUSCULAR VOLUME 87.4 fl (82.0-101.0); MEAN PLATELET VOLUME 9.6 fl (7.4-10.4); MONOCYTES % 6.5 % (0.0-11.0); NEUTROPHIL # 13.3 10^3/ul (1.6-7.5); NEUTROPHILS % 84.1 % (39.0-77.0); PLATELET COUNT 243 10^3/UL (140-415); RED BLOOD COUNT 3.42 10^6/ul (4.20-5.40); RED CELL DISTRIBUTION WIDTH 14.8 % (11.5-14.5); WHITE BLOOD COUNT 15.8 10^3/ul (4.8-10.8)
--- NOTE | 2017-01-02 11:41 | PN ---
Date/Time of Note Date/Time of Note DATE: 01/02/17 TIME: 11:38 Assessment/Plan VTE Prophylaxis VTE Prophylaxis Intervention: SCD's Lines/Catheters IV Catheter Type (from [facility] [place]): Peripheral IV Urinary Cath still in place: No Assessment/Plan Assessment/Plan * Abdominal pain Cholecystitis with chololithiasis ERCP 12/31/2016 Small 6 mm antral gastric ulceration, benign endoscopic appearance. Normal ampulla of Vater. . Normal partially filled pancreatogram with exception of slight dilatation in the head of the pancreas. . Markedly dilated common bile duct, we no definitive stones or intraductal pathology suggestive of ampullary stricture post sphincterotomy and brushings. Post-placement of 10-Upper Sorbian 7 cm stent with excellent drainage * Hx of COPD * Chronic kidney disease Plan * awaiting biopsy,CEA,Ca19-9 results * continue present management Subjective 24 Hr Interval Summary Free Text/Dictation * Course reviewed with RN * Patient seen and examined * Complains of productive cough and on and off abdominal pain Exam/Review of Systems Vital Signs Vitals Vital Signs Date Time Temp Pulse Resp B/P Pulse Ox O2 Delivery O2 Flow Rate FiO2 01/02/17 08:08 68 22 98 Nasal Cannula 3.0 01/02/17 07:38 98.6 113/63 01/01/17 16:46 32 Intake and Output 01/01/17 01/01/17 01/02/17 15:00 23:00 07:00 Intake Total 140 ml 1610 ml 1680 ml Output Total 650 ml 200 ml 2200 ml Balance -510 ml 1410 ml -520 ml Exam Constitutional: alert, frail Head: atraumatic, normocephalic Eyes: nl conjunctiva, nl sclera Neck: non-tender, supple Respiratory: congested cough, crackles/rales, diminished breath sounds Cardiovascular: nl pulses, regular rate and rhythm Gastrointestinal: soft, tender (right upper quadrant) Musculoskeletal: nl extremities to inspection Extremities: normal pulses Results Result Diagram: 01/02/17 1121 01/01/17 0440 Results 24 hrs Laboratory Tests Test 01/02/17 11:21 White Blood Count 15.8 H Red Blood Count 3.42 L Hemoglobin 9.6 L Hematocrit 29.9 L Mean Corpuscular Volume 87.4 Mean Corpuscular Hemoglobin 28.1 L Mean Corpuscular Hemoglobin Concent 32.1 Red Cell Distribution Width 14.8 H Platelet Count 243 # Mean Platelet Volume 9.6 Neutrophils % 84.1 H Lymphocytes % 7.5 L Monocytes % 6.5 Eosinophils % 0.6 Basophils % 0.3 Nucleated Red Blood Cells % 0.0 Neutrophils # 13.3 H Lymphocytes # 1.2 Monocytes # 1.0 H Eosinophils # 0.1 Basophils # 0.0 Nucleated Red Blood Cells # 0.0 Medications Medications Current Medications Ciprofloxacin/ Dextrose 200 ml @ 200 mls/hr Q24H IVPB Last administered on 18:47; Admin Dose 200 MLS/HR; Start 12/29/16 at 18:30 Metronidazole (Flagyl 500 Mg (Pmx)) 100 ml @ 100 mls/hr Q8 IVPB Last administered on 01/02/17 05:16; Admin Dose 100 MLS/HR; Start 12/29/16 at 22:00 Morphine Sulfate (morphine) 2 mg Q4H PRN IV PAIN Last administered on 05:21; Admin Dose 2 MG; Start 12/29/16 at 18:30 Famotidine (Pepcid) 20 mg Q24H PO Last administered on 01/01/17 21:44; Admin Dose 20 MG; Start 12/29/16 at 21:00 Docusate Sodium (Colace) 100 mg BID PO Last administered on 01/02/17 08:15; Admin Dose 100 MG; Start 12/29/16 at 21:00 Miscellaneous Information Patients own medicat... BID@10,16 XX ; Start 12/30/16 at 10:00 Sodium Chloride (NS) 1,000 ml @ 75 mls/hr [id number] IV Last administered on 01/01 18:47; Admin Dose 75 MLS/HR; Start 12/31/16 at 09:30 Salmeterol Xinafoate/ Fluticasone 1 inh 1 inh BID INH Last administered on 01/02 08:15; Admin Dose 1 INH; Start 12/31/16 at 13:00 Ferric Sodium Gluconate Complex/ Sodium Chloride (Ferrlecit/NS) 110 ml @ 100 mls/hr Q24H IVPB Last administered on 01/01/17 13:10; Admin Dose 100 MLS/HR; Start 12/31/16 at 14:00; Stop 01/02/17 at 15:05 Sumatriptan Succinate (Imitrex) 50 mg DAILY PRN PO FOR MIGRAINE.MRX1 IN 24HOUR Last administered on 01/02/17t 10:49; Admin Dose 50 MG; Start 01/02/17 at 01:00 DELGADO RICHARDS MD January 02, 2017 11:41
[2017-01-02 11:57] LABS: CALCIUM 8.4 mg/dl (8.4-10.2); CREATININE 1.31 mg/dl (0.44-1.00); POTASSIUM 5.2 mmol/L (3.5-5.1)
--- NOTE | 2017-01-02 12:34 | PN ---
Date/Time of Note Date/Time of Note DATE: 01/02/17 TIME: 12:31 Assessment/Plan Lines/Catheters IV C[facility]ter Type (from [facility] Peripheral IV Haley in Place (from [facility]): No Assessment/Plan Assessment/Plan [facility] Progress Note Date of Service: 01/02/17 Today's Impression & Plan: Overall stable. Renal function continues to improve. Discussed scheduled surgery with patient and over the phone with her son (CASANDRA; also left a message for Lew). Answered all questions and obtained patient's and family's consent for the operation. With above assessment, I've recommended the following for today: 1. Cont aggressive medical management 2. Lap radha Tuesday Thank you again for your great care of this very pleasant patient and wonderful family. If there are any questions, please feel free to call me at [phone]. TOTAL VISIT TIME: 20 minutes of which more than half was spent in the operating room, as well as coordination of care between multiple physicians and providers. Disclaimer: Inadvertent spelling or grammatical errors are likely due to EHR/ dictation software use and do not reflect on the overall quality of patient care. Updated Clinical Summary: A very pleasant 61-year-old lady admitted through the [facility] Emergency Room on 12/29/2016 with evidence for possible acute cholecystitis as well as choledocholithiasis. COMORBIDITIES: 1. BMI 26.9. 2. Smoking history. 3. Renal insufficiency. 4. History of known cholelithiasis. 5. Status post appendectomy. 6. Status post hysterectomy. Subjective: No major events or complaints; still with abd pain with some radiation to R flank and back; seems under control with medications; some nausea but no v/d; no sob or cp; + flatus; + BM; + activity Objective: Vitals: See below Exam: GENERAL: On exam, the patient was sitting up in a chair and appeared to be comfortable and in no acute distress. ABDOMEN: Soft, nontender on the left side and mild to moderately tender on the right upper quadrant, and nondistended. There are no peritoneal signs or guarding. SKIN: Skin appears to be pink and feels warm to touch. NEUROLOGIC: Patient is awake, alert, and follows commands appropriately. Slightly confused (confirmed by her son CASANDRA) Exam/Review of Systems Vital Signs Vitals Vital Signs Date Time Temp Pulse Resp B/P Pulse Ox O2 Delivery O2 Flow Rate FiO2 01/02/17 08:08 68 22 98 Nasal Cannula 3.0 01/02/17 07:38 98.6 113/63 01/01/17 16:46 32 Intake and Output 01/01/17 01/01/17 01/02/17 15:00 23:00 07:00 Intake Total 140 ml 1610 ml 1680 ml Output Total 650 ml 200 ml 2200 ml Balance -510 ml 1410 ml -520 ml Results Result Diagram: 01/02/17 1121 01/02/17 1030 NIADA REDDY M.D. January 02, 2017 12:34
[2017-01-02] MEDS: SOD FERRIC GLUC COMPLX 125 MG in SOD CHLORIDE 0.9% 100 ML IVPB SCH (14:54)
[2017-01-02] MEDS ORDERED: ACET/BUTAL/CAFF TAB PO ONE (15:30)
--- NOTE | 2017-01-02 15:42 | PN ---
Date/Time of Note Date/Time of Note DATE: 01/02/17 TIME: 15:42 Assessment/Plan VTE Prophylaxis VTE Prophylaxis Intervention: SCD's Lines/Catheters IV Catheter Type (from [facility]): Peripheral IV Urinary Cath still in place: No Assessment/Plan Chief Complaint/Hosp Course 1. Symptomatic cholelithiasis with possible underlying choledocholithiasis. Continue pain control. Continue empiric antibiotics. The patient is being evaluated by gastroenterology and general surgery. ERCP showed a markedly dilated common bile duct with no definitive stones or intraductal pathology suggestive of ampullary stricture. Status post sphincterotomy brushings and placement of a 10 Spanish 7 cm stent. 2. Leukocytosis. Most probably secondary to #1. No evidence of any septic shock. Continue empiric antibiotics. 3. Nicotine use. The patient is trying to quit nicotine use. The patient refused a nicotine patch. 4. Chronic kidney disease. The patient verbalized that she has known history of chronic kidney disease and she was following a transmitter operator in [facility]. Patient being followed by nephrology. 5. Normocytic hypochromic anemia. Etiology unclear, most probably secondary to underlying chronic kidney disease. Continue to monitor H&H closely. Iron panel showing iron deficiency. Continue iron supplements. 6. COPD. No evidence of exacerbation. Continue inhaled bronchodilators. 7. Fluid, electrolytes and nutrition. Currently NPO. Continue on IV fluids. 8. Migraines. Continue as needed triptan's. Will start the patient on topiramate. 9. Deep venous thrombosis prophylaxis. Bilateral sequential compression devices. 10. Gastrointestinal prophylaxis. Histamine 2 receptor blockers. PLAN: Continue pain control. Continue IV hydration. Continue antibiotics. Await surgical intervention. Case discussed with Dr. Champion. Problems: Subjective 24 Hr Interval Summary Free Text/Dictation Complains of headache. Exam/Review of Systems Vital Signs Vitals Vital Signs Date Time Temp Pulse Resp B/P Pulse Ox O2 Delivery O2 Flow Rate FiO2 01/02/17 13:45 86 18 98 Nasal Cannula 3.0 01/02/17 07:38 98.6 113/63 01/01/17 16:46 32 Intake and Output 01/01/17 01/01/17 01/02/17 15:00 23:00 07:00 Intake Total 140 ml 1610 ml 1680 ml Output Total 650 ml 200 ml 2200 ml Balance -510 ml 1410 ml -520 ml Exam GENERAL: This is a 61-year-old female patient lying in bed in no apparent distress. HEENT: Head normocephalic and atraumatic. Eyes: Anicteric sclerae. Conjunctivae clear. ENT: Nasal septum is midline. Oral mucosa is dry. NECK: Supple. No JVD noticed. RESPIRATORY: Bilateral diminished breath sounds. No use of accessory muscles of respiration. Bilateral scattered rhonchi. CARDIAC: Regular rate and rhythm. No murmurs heard. ABDOMEN: Soft. Diffuse tenderness especially in the right upper quadrant. No guarding. GENITOURINARY: Deferred. EXTREMITIES: No cyanosis, no clubbing, no edema. Peripheral pulses palpable. NEUROLOGIC: The patient is awake, alert and oriented. Cranial nerves are grossly intact. Results Result Diagram: 01/02/17 1121 01/02/17 1030 Results 24 hrs Laboratory Tests Test 01/02/17 10:30 01/02/17 11:21 Sodium Level 135 Potassium Level 5.2 H Chloride Level 108 Carbon Dioxide Level 20 L Anion Gap 12 Blood Urea Nitrogen 22 #H Creatinine 1.31 H Glucose Level 116 Calcium Level 8.4 White Blood Count 15.8 H Red Blood Count 3.42 L Hemoglobin 9.6 L Hematocrit 29.9 L Mean Corpuscular Volume 87.4 Mean Corpuscular Hemoglobin 28.1 L Mean Corpuscular Hemoglobin Concent 32.1 Red Cell Distribution Width 14.8 H Platelet Count 243 # Mean Platelet Volume 9.6 Neutrophils % 84.1 H Lymphocytes % 7.5 L Monocytes % 6.5 Eosinophils % 0.6 Basophils % 0.3 Nucleated Red Blood Cells % 0.0 Neutrophils # 13.3 H Lymphocytes # 1.2 Monocytes # 1.0 H Eosinophils # 0.1 Basophils # 0.0 Nucleated Red Blood Cells # 0.0 Medications Medications Current Medications Ciprofloxacin/ Dextrose 200 ml @ 200 mls/hr Q24H IVPB Last administered on 18:47; Admin Dose 200 MLS/HR; Start 12/29/16 at 18:30 Metronidazole (Flagyl 500 Mg (Pmx)) 100 ml @ 100 mls/hr Q8 IVPB Last administered on 01/02/17 13:19; Admin Dose 100 MLS/HR; Start 12/29/16 at 22:00 Morphine Sulfate (morphine) 2 mg Q4H PRN IV PAIN Last administered on 13:19; Admin Dose 2 MG; Start 12/29/16 at 18:30 Famotidine (Pepcid) 20 mg Q24H PO Last administered on 01/01/17 21:44; Admin Dose 20 MG; Start 12/29/16 at 21:00 Docusate Sodium (Colace) 100 mg BID PO Last administered on 01/02/17 08:15; Admin Dose 100 MG; Start 12/29/16 at 21:00 Miscellaneous Information Patients own medicat... BID@10,16 XX ; Start 12/30/16 at 10:00 Sodium Chloride (NS) 1,000 ml @ 75 mls/hr [id number] IV Last administered on 01/01 18:47; Admin Dose 75 MLS/HR; Start 12/31/16 at 09:30 Salmeterol Xinafoate/ Fluticasone (Advair 250/50 Diskus) 1 inh BID INH Last administered on 01/02/17 08:15; Admin Dose 1 INH; Start 12/31/16 at 13:00 Sumatriptan Succinate (Imitrex) 50 mg DAILY PRN PO FOR MIGRAINE.MRX1 IN 24HOUR Last administered on 01/02/17 10:49; Admin Dose 50 MG; Start 01/02/17 at 01:00 Topiramate (Topamax) 50 mg BID PO ; Start 01/02/17 at 21:00 SAMSON SHAFFER NP January 02, 2017 15:42
[2017-01-02] MEDS: CIPROFLOXACIN 400MG/D5W 200 ML IVPB SCH (17:46)
[2017-01-02 20:01] VITALS: BP 147/69; RESP 20
[2017-01-02] MEDS: TOPIRAMATE 25 MG TAB PO SCH (20:14)
[2017-01-02] MEDS: FAMOTIDINE 20 MG TAB PO SCH (20:14)
[2017-01-03] VITALS (20 sets, daily range): BP systolic 90–149; BP diastolic 50–76; PULSE 66–88; RESP 12–26
[2017-01-03 05:46] LABS: ADD SCAN DIFF NO
[2017-01-03] MEDS: metroNIDAZOLE 500 MG/NS (PMX) 100 ML IVPB SCH ×3 (06:00→21:02)
[2017-01-03 06:02] LABS: BASOPHILS % 0.2 % (0.0-2.0); EOSINOPHILS # 0.1 10^3/ul (0.0-0.5); EOSINOPHILS % 0.7 % (0.0-7.0); HEMATOCRIT 29.5 % (37.0-47.0); HEMOGLOBIN 9.2 g/dl (12.0-16.0); LYMPHOCYTES # 1.6 10^3/ul (0.8-2.9); LYMPHOCYTES % 9.4 % (15.0-51.0); MEAN CORPUSCULAR HEMOGLOBIN 27.2 pg (29.0-33.0); MEAN CORPUSCULAR HGB CONC 31.2 g/dl (32.0-37.0); MEAN CORPUSCULAR VOLUME 87.3 fl (82.0-101.0); MEAN PLATELET VOLUME 9.7 fl (7.4-10.4); MONOCYTE # 1.1 10^3/ul (0.3-0.9); MONOCYTES % 6.5 % (0.0-11.0); NEUTROPHIL # 13.4 10^3/ul (1.6-7.5); NEUTROPHILS % 81.5 % (39.0-77.0); PLATELET COUNT 250 10^3/UL (140-415); RED BLOOD COUNT 3.38 10^6/ul (4.20-5.40); RED CELL DISTRIBUTION WIDTH 14.7 % (11.5-14.5); WHITE BLOOD COUNT 16.5 10^3/ul (4.8-10.8)
[2017-01-03 06:14] LABS: INR 1.48; PT RATIO 1.4
[2017-01-03 06:53] LABS: ALBUMIN 2.4 g/dl (3.3-4.9); MAGNESIUM 1.6 mg/dl (1.7-2.5); PHOSPHORUS 3.2 mg/dl (2.5-4.9)
[2017-01-03 06:56] LABS: ALBUMIN/GLOBULIN RATIO 0.75; CREATININE 1.23 mg/dl (0.44-1.00); TOTAL PROTEIN 5.6 g/dl (6.1-8.1)
[2017-01-03 06:57] LABS: CALCIUM 8.2 mg/dl (8.4-10.2)
[2017-01-03] MEDS ORDERED: BUPIVACAINE 0.25%/EPI (SDV) 30 ML INJ ONE (07:12)
--- NOTE | 2017-01-03 07:38 | HPN ---
Date/Time of Note Date/Time of Note DATE: 01/03/17 TIME: 07:38 Interval H&P Admission Note Pt. seen H&P reviewed: No system changes Pt. seen H&P reviewed. No system changes (I attest that I have seen and examined the patient and reviewed the operation in detail, as well as its risks , benefits and alternatives of the operation). I attest that I have seen and examined the patient and reviewed in detail the operation, and its associated risks, benefits and alternative. I have answered all the patient's questions to the best of my ability and the patient wishes to proceed. Please refer to rest of electronic medical record for additional updates. NAIDA REDDY M.D. January 03, 2017 07:38
[2017-01-03] MEDS ORDERED: LIDOCAINE 2% (SDV) 5 ML INJ ONE (07:43)
[2017-01-03] MEDS ORDERED: MEPERIDINE 100 MG INJ ONE (07:43)
[2017-01-03] MEDS ORDERED: NEOSTIGMINE 3 MG/3 ML SYRINGE ONE (07:43)
[2017-01-03] MEDS ORDERED: PROPOFOL 20 ML ONE (07:43)
[2017-01-03] MEDS ORDERED: SUCCINYLCHOLINE CHLORIDE 100 MG/5 ML SYG IV ONE (07:43)
[2017-01-03] MEDS ORDERED: ROCURONIUM 50 MG INJ ONE (07:43)
[2017-01-03] MEDS ORDERED: GLYCOPYRROLATE 0.4 MG INJ ONE ×2 (07:43→08:17)
[2017-01-03] MEDS ORDERED: MIDAZOLAM 1 MG/ML 2 ML INJ IV PRN (08:00)
[2017-01-03] MEDS ORDERED: METOCLOPRAMIDE 10 MG INJ IV PRN (08:00)
[2017-01-03] MEDS ORDERED: FENTAnyl 50 MCG/ML VIAL IV PRN (08:00)
[2017-01-03] MEDS ORDERED: ONDANSETRON 4 MG INJ IV PRN (08:00)
[2017-01-03] MEDS ORDERED: HYDROmorphONE (0.2 MG/ML) 10ML SYG IV PRN (08:00)
[2017-01-03] MEDS: ALBUTEROL/IPRATROPIUM (NEB) 3 ML AMP HHN SCH ×3 (08:00→19:58)
[2017-01-03] MEDS ORDERED: morphine (1 MG/ML) 10ML SYRINGE IV PRN (08:00)
[2017-01-03] MEDS ORDERED: MEPERIDINE 25 MG INJ IV PRN (08:00)
[2017-01-03] MEDS: DOCUSATE SODIUM 100 MG CAP PO SCH ×2 (08:07→20:49)
[2017-01-03] MEDS: TOPIRAMATE 25 MG TAB PO SCH ×2 (08:07→20:49)
[2017-01-03] MEDS: SALMETEROL/FLUTICASONE 250/50 INHA INH SCH ×2 (08:07→20:50)
[2017-01-03] MEDS ORDERED: CIPROFLOXACIN 400MG/D5W 200 ML ONE (08:23)
--- NOTE | 2017-01-03 09:15 | PN ---
DATE: SUBJECTIVE: The patient is stable, no acute events overnight. No fevers, chills, nausea, vomiting. The patient is pending surgery this morning. OBJECTIVE: VITAL SIGNS: Blood pressure 147/69, respirations 20, pulse 86, temperature 98.4. HEENT: Head is normocephalic. NECK: Supple. HEART: Regular rate. LUNGS: Show diminished breath sounds at the base. ABDOMEN: Soft. Positive tenderness to palpation. EXTREMITIES: Negative for clubbing, cyanosis, no edema. DERMATOLOGIC: No rashes. MUSCULOSKELETAL: No joint effusion. NEUROLOGIC: No change in exam. MEDICATIONS: Have been reviewed. LABORATORY DATA: Shows sodium 136, potassium 4.0, chloride is 105, BUN 17, creatinine is 1.23. Whi te count 16.5, hemoglobin 9.2, hematocrit 29.5, platelet count is 250. ASSESSMENT AND PLAN: 1. Nonoliguric acute kidney injury on top chronic kidney disease stage IV with a unilateral functio vinayak kidney. Etiology of acute kidney injury is secondary to hemodynamics. Renal function has impr lico. At this point, continue current treatment plan, supportive care, renally dose all medications , avoid nephrotoxins. 2. Chronic kidney disease with a unilateral functioning kidney. 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 The patient's renal function has improved with supportive care and IV fluids. We will continue current treatment plan. 3. Mineral disease. Continue to monitor calcium and phosphorus. 4. Hypomagnesemia. Replete with magnesium sulfate. 5. Mild hyponatremia, resolved. 6. Anemia. Continue to monitor hemoglobin and hematocrit levels. 7. Acute cholecystitis. The patient is pending laparoscopic cholecystectomy. 8. Leukocytosis secondary to acute cholecystitis. Continue to monitor. Continue antibiotic therap y. 9. Deep venous thrombosis prophylaxis. Continue proton pump inhibitor and sequential leg squeezers . Dictated By: CAMERON MONTANEZ/JOHN Conf#: [id number] DID#: [id number]
[2017-01-03] MEDS: FENTAnyl 50 MCG/ML VIAL IV PRN ×2 (10:29→10:56)
[2017-01-03] MEDS: HYDROmorphONE (0.2 MG/ML) 10ML SYG IV PRN ×2 (10:29→10:57)
[2017-01-03] MEDS ORDERED: BISACODYL 10 MG SUPP PR PRN (10:30)
[2017-01-03] MEDS ORDERED: HYDROCODONE/APAP (5/325) TAB PO PRN (10:30)
[2017-01-03] MEDS ORDERED: NA PHOSPHATE/BIPHOS 133 ML ENEMA PR PRN (10:30)
[2017-01-03] MEDS ORDERED: DOCUSATE SODIUM 100 MG CAP PO PRN (10:30)
--- NOTE | 2017-01-03 10:37 | OPR ---
Date/Time of Note Date/Time of Note DATE: 01/03/17 TIME: 10:36 Operative Report Operative\Procedure Findings [facility] INPATIENT OPERATIVE NOTE PLACE OF SERVICE: [facility] DATE OF SURGERY: 01/03/2017 PREOPERATIVE DIAGNOSIS: 1. Acute cholecystitis 2. Smoking history. 3. Renal insufficiency. 4. History of known cholelithiasis. 5. Status post appendectomy. 6. Status post hysterectomy. 7. 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 8. BMI 26.9. POSTOPERATIVE DIAGNOSIS: 1. Severe acute on chronic cholecystitis with gangrene and perforation 2. Smoking history. 3. Renal insufficiency. 4. History of known cholelithiasis. 5. Status post appendectomy. 6. Status post hysterectomy. 7. 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 8. BMI 26.9. OPERATION: 1. Laparoscopic cholecystectomy (modifier 22) SURGEON: Naida Reddy M.D. CAT HOOKER: Sheyla ANESTHESIA: General endotracheal tube anesthesia ANESTHESIOLOGIST: Jeannine Cook M.D. BRIEF SUMMARY: An otherwise uncomplicated but challenging laparoscopic cholecystectomy was performed with findings of severe acute on chronic cholecystitis with gangrene and perforation. A very pleasant 61-year-old lady admitted through the [facility] Emergency Room on 12/29/2016 with evidence for possible acute cholecystitis as well as choledocholithiasis. 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 COMORBIDITIES: 1. BMI 26.9. 2. Smoking history. 3. Renal insufficiency. 4. History of known cholelithiasis. 5. Status post appendectomy. 6. Status post hysterectomy. 7. 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 BRIEF HISTORY: The patient is a very pleasant 61-year-old lady with above- mentioned history and comorbidities who was diagnosed as likely having acute cholecystitis as described above. I met with the patient (and spoke with patient 's son over the phone) and counseled them regarding the possible options of treatment, and I strongly suggested a laparoscopic, possible open cholecystectomy. We reviewed the operation in detail as well as the risks, benefits, alternatives, and expected outcomes of this operation. After careful consideration of all the risks, benefits, and alternatives, the patient and family appeared to understand those risks and wished to proceed with surgery. For a detailed report of my consultation with patient and family, please refer to my separate consultation note. STATEMENT OF THE INFORMED CONSENT: The patient and family appeared to understand the risks of the operation to include, but not be limited to risk of postoperative pain and scar tissue, possible infection or bleeding requiring other interventions such as opening the wound, placement of drainage catheters, or other operative interventions; possible injury to surrounding to structures including bowel, bladder, bile duct, or blood vessels, or solid organs such as liver, kidney, or pancreas requiring other interventions or procedures; possible leakage of bile from surgical clip sites, suture lines, or worse, from common bile duct injury, causing significant increase in morbidity and mortality and requiring multiple interventions including but not limited to, placement of drainage catheters, imaging studies, as well as operative interventions; possible other source of sepsis such as urinary tract infections or pneumonias, or other sources of potentially life threatening problems such as deep venous thrombus formation causing pulmonary embolism, myocardial arrhythmias and infarctions, and even . After careful consideration of all their options, the patient and family appeared to understand and wished to proceed with surgery. DESCRIPTION OF PROCEDURE: After obtaining informed consent, the patient was brought into the operating room and was placed in a normal supine position, where successful general endotracheal tube anesthesia was performed. The patient 's abdominal skin was prepped and draped, from the nipple line down to the level of the groins, in the usual sterile fashion. Intravenous access was already in place, and appropriately chosen and dosed prophylactic intravenous antimicrobials were administered. We then called a surgical time-out where patient's identification, date of , nature of the operation, allergies, presence of intravenous antimicrobials, presence of needed equipment, and any other concerns were reviewed and agreed upon by all members of the operating room team. We then started the operation by placing a 5-mm skin incision in the right- upper quadrant, subcostal midclavicular line, and introduced a 5-mm [employer] trocar into the peritoneal space, visualizing all the layers of the abdominal wall as we entered. Note that the patient had a midline incision from subxiphoid down to immediately supraumbilical area from prior operation. Also please note that there was evidence for slight tear in the surface of the liver once we entered the peritoneal surface. We insufflated the abdominal cavity to a maximum pressure of 15 mmHg, again, confirmed lack of any injury to underlying structures prior to visualizing the rest of the abdominal cavity. We found significant amount of adhesions intra-abdominally as expected from patient 's previous history. We could not see the gallbladder and this area was completely covered with omentum. There was also interesting to her 3 areas of bile tinged tissue without obvious bile leaking activity from anywhere indicative of perhaps recent perforation of gallbladder or bile leak. There was no evidence of malignancy. No evidence of calcifications. The liver appeared to be healthy. With this information, we went a head and placed the other trocars under direct visualization, after injecting their sites with 0.25% Marcaine with epinephrine , placing a 5-mm trocar in the umbilical midline area, a 5-mm trocar in the right anterior axillary line, and a 12-mm trocar in the midline subxiphoid region. With our instruments in place, we had excellent visualization and access to the right-upper quadrant. We immediately controlled the small 4 mm tear on the anterior surface of the right lobe of the liver segment 5 from the initial insertion point using cautery. We then started a very meticulous process dissecting the area around the wall of the gallbladder using mainly blunt dissection as well as judicious use of cautery. It became quickly obvious that the patient's gallbladder wall was necrotic and there was a perforation on the medial wall to the left of the gallbladder with bile coming out of this area once we started the dissection. We very carefully dissected the gallbladder top-down towards the fundus using meticulous dissection with cautery as well as with blunt force. We were able to see the inside of the gallbladder and the fundus appeared to be healthy and viable. A small stone was removed from inside of a fundus and no other small stones were found and the opening of the cystic duct was visualized. As expected, there was significant amount of inflammation in the area of the fundus and the triangle of Calot. After spending quite a bit of time using judicious dissection in this area, I concluded that further dissection to identify and isolate the cystic duct carried on acceptable risk of injuring surrounding important structures. Since I was able to remove more than 95% of the body of the gallbladder with the available dissected area, I decided to perform a partial cholecystectomy using one firing of the [place] [employer] MATT stapler (flex) using a vascular (white) load. This went without any difficulty. The right lateral corner of the staple line was reinforced with two 10 mm clips using a laparoscopic clip computer operations technician. There was no evidence of any leakage of bile from the staple line and the staple line appeared to be needle board repairer. We then delivered the gallbladder out inside of an EndoCatch bag through the 12- mm trocar site without enlarging the fascia or contaminating the wound. The gallbladder was sent to Pathology for evaluation. Returning to the abdominal cavity, we insufflated the stomach with 150 cc of normal saline and very carefully observe the area of the duodenum and the first and second portion to make sure that there is no extravasation of saline. We did not notice any enteric contents of bile coming out from this region. Note that we also had the recent ERCP as well as the pictures to demonstrate lack of any obvious choledochoduodenal or colo-duodenal fistulas. Once we were satisfied that we do not have a hole in the bowel, we ensured that there was adequate hemostasis and bile-stasis prior to removal of all of or equipment, including the Ray-Cindy that we had used during the operation to lift the liver up and the pneumoperitoneum, and then left a 19 Bulgarian Pavan drain through the right upper quadrant midclavicular subcostal 5 mm port site and positioning the tail in the gallbladder fossa, and fixing the drain onto the skin using 2-0 nylon suture prior to reapproximating the 12-mm trocar site with one figure-of- eight 0 Vicryl suture, followed by washing the wounds with copious amounts of normal saline, and then reapproximating the skin using interrupted 4-0 Monocryl sutures. Light dressing was then applied. At the end of the operation, both the sponge count and needle count were reportedly correct x2. The patient tolerated the procedure without any reported complications. Please note that this operation qualifies for modifier 22 given complexity of the decision-making as well as degree of difficulty of the case. ESTIMATED BLOOD LOSS: 75 cc BLOOD OR BLOOD PRODUCT TRANSFUSIONS: None to my knowledge. SPECIMENS: 1. Gallbladder COMPLICATIONS: None. DISPOSITION: Recovery area. Disclaimer: Inadvertent spelling and grammatical errors are likely due to EHR/ dictation software use and do not reflect on the quality of delivered patient care. NAIDA REDDY M.D. January 03, 2017 10:37
[2017-01-03] MEDS: morphine (1 MG/ML) 10ML SYRINGE IV PRN ×2 (10:39→11:03)
[2017-01-03] MEDS: D5W-0.45 NACL + KCL 20 MEQ 1,000 ML IV SCH ×2 (11:52→20:10)
--- NOTE | 2017-01-03 12:18 | PN ---
Date/Time of Note Date/Time of Note DATE: 01/03/17 TIME: 12:17 Assessment/Plan VTE Prophylaxis VTE Prophylaxis Intervention: SCD's Lines/Catheters IV Catheter Type (from [facility]): Peripheral IV Urinary Cath still in place: No Assessment/Plan Chief Complaint/Hosp Course 1. Symptomatic cholelithiasis with possible underlying choledocholithiasis. Continue pain control. Continue empiric antibiotics. The patient is being evaluated by gastroenterology and general surgery. ERCP showed a markedly dilated common bile duct with no definitive stones or intraductal pathology suggestive of ampullary stricture. Status post sphincterotomy brushings and placement of a 10 Romansh 7 cm stent. Status post cholecystectomy on 01/03/2017. 2. Leukocytosis. Most probably secondary to #1. No evidence of any septic shock. Continue empiric antibiotics. 3. Nicotine use. The patient is trying to quit nicotine use. The patient refused a nicotine patch. 4. Chronic kidney disease. 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 Patient being followed by nephrology. 5. Normocytic hypochromic anemia. Etiology unclear, most probably secondary to underlying chronic kidney disease. Continue to monitor H&H closely. Iron panel showing iron deficiency. Continue iron supplements. 6. COPD. No evidence of exacerbation. Continue inhaled bronchodilators. 7. Fluid, electrolytes and nutrition. Resume diet as per surgery. Continue on IV fluids. 8. Migraines. Continue as needed triptan's. Continue topiramate. 9. Deep venous thrombosis prophylaxis. Bilateral sequential compression devices. 10. Gastrointestinal prophylaxis. Histamine 2 receptor blockers. PLAN: Continue pain control. Continue IV hydration. Continue antibiotics. Advance diet as per surgery. Case discussed with Dr. Whyte. Problems: Subjective 24 Hr Interval Summary Free Text/Dictation Status post laparoscopic cholecystectomy today. Exam/Review of Systems Vital Signs Vitals Vital Signs Date Time Temp Pulse Resp B/P Pulse Ox O2 Delivery O2 Flow Rate FiO2 01/03/17 11:45 79 18 91/51 96 Nasal Cannula 2.0 01/03/17 11:30 98.0 01/01/17 16:46 32 Intake and Output 01/02/17 01/02/17 01/03/17 15:00 23:00 07:00 Intake Total 1705 ml 1000 ml Output Total 1050 ml 1200 ml Balance 655 ml -200 ml Exam GENERAL: This is a 61-year-old female patient lying in bed in no apparent distress. HEENT: Head normocephalic and atraumatic. Eyes: Anicteric sclerae. Conjunctivae clear. ENT: Nasal septum is midline. Oral mucosa is dry. NECK: Supple. No JVD noticed. RESPIRATORY: Bilateral diminished breath sounds. No use of accessory muscles of respiration. Bilateral scattered rhonchi. CARDIAC: Regular rate and rhythm. No murmurs heard. ABDOMEN: Soft. Diffuse tenderness especially in the right upper quadrant. No guarding. Laparoscopic incision sites clean, dry, and intact. KRISTEN drain in place. GENITOURINARY: Deferred. EXTREMITIES: No cyanosis, no clubbing, no edema. Peripheral pulses palpable. NEUROLOGIC: The patient is awake, alert and oriented. Cranial nerves are grossly intact. Results Result Diagram: 01/03/17 0520 01/03/17 0520 Results 24 hrs Laboratory Tests Test 01/03/17 05:20 White Blood Count 16.5 H Red Blood Count 3.38 L Hemoglobin 9.2 L Hematocrit 29.5 L Mean Corpuscular Volume 87.3 Mean Corpuscular Hemoglobin 27.2 L Mean Corpuscular Hemoglobin Concent 31.2 L Red Cell Distribution Width 14.7 H Platelet Count 250 Mean Platelet Volume 9.7 Neutrophils % 81.5 H Lymphocytes % 9.4 L Monocytes % 6.5 Eosinophils % 0.7 Basophils % 0.2 Nucleated Red Blood Cells % 0.0 Neutrophils # 13.4 H Lymphocytes # 1.6 Monocytes # 1.1 H Eosinophils # 0.1 Basophils # 0.0 Nucleated Red Blood Cells # 0.0 Prothrombin Time 18.0 H Prothrombin Time Ratio 1.4 INR International Normalized Ratio 1.48 Activated Partial Thromboplast Time 42.0 H Sodium Level 136 Potassium Level 4.0 Chloride Level 105 Carbon Dioxide Level 21 Anion Gap 14 Blood Urea Nitrogen 17 Creatinine 1.23 H Glucose Level 106 Calcium Level 8.2 L Phosphorus Level 3.2 Magnesium Level 1.6 L Total Bilirubin 0.0 L Direct Bilirubin 0.00 Indirect Bilirubin 0.0 Aspartate Amino Transf (AST/SGOT) 11 L Alanine Aminotransferase (ALT/SGPT) 24 Alkaline Phosphatase 205 H Total Protein 5.6 L Albumin 2.4 L Globulin 3.20 Albumin/Globulin Ratio 0.75 Medications Medications Current Medications Ciprofloxacin/ Dextrose 200 ml @ 200 mls/hr Q24H IVPB Last administered on 17:46; Admin Dose 200 MLS/HR; Start 12/29/16 at 18:30 Metronidazole (Flagyl 500 Mg (Pmx)) 100 ml @ 100 mls/hr Q8 IVPB Last administered on 01/03/17 06:00; Admin Dose 100 MLS/HR; Start 12/29/16 at 22:00 Morphine Sulfate (morphine) 2 mg Q4H PRN IV PAIN Last administered on 20:15; Admin Dose 2 MG; Start 12/29/16 at 18:30 Famotidine (Pepcid) 20 mg Q24H PO Last administered on 01/02/17 20:14; Admin Dose 20 MG; Start 12/29/16 at 21:00 Docusate Sodium (Colace) 100 mg BID PO Last administered on 01/02/17 20:14; Admin Dose 100 MG; Start 12/29/16 at 21:00 Miscellaneous Information Patients own medicat... BID@10,16 XX ; Start 12/30/16 at 10:00 Sodium Chloride (NS) 1,000 ml @ 75 mls/hr [id number] IV Last administered on 01/02 17:45; Admin Dose 75 MLS/HR; Start 12/31/16 at 09:30 Salmeterol Xinafoate/ Fluticasone (Advair 250/50 Diskus) 1 inh BID INH Last administered on 01/02/17 20:18; Admin Dose 1 INH; Start 12/31/16 at 13:00 Sumatriptan Succinate (Imitrex) 50 mg DAILY PRN PO FOR MIGRAINE.MRX1 IN 24HOUR Last administered on 01/02/17 10:49; Admin Dose 50 MG; Start 01/02/17 at 01:00 Topiramate 50 mg 50 mg BID PO Last administered on 01/02/17 20:14; Admin Dose 50 MG; Start 01/02/17 at 21:00 Potassium Chloride/Dextrose/ Sod Cl (D5-1/2ns + KCl 20 Meq) 1,000 ml @ 100 mls/ hr Q10H IV Last administered on 01/03/17 11:52; Admin Dose 100 MLS/HR; Start 01/03/17 at 10:10 Acetaminophen/ Hydrocodone Bitart ([place] (5/325)) 1 tab Q4H PRN PO PAIN LEVEL 4 -7; Start 01/03/17 at 10:30 Acetaminophen/ Hydrocodone Bitart ([place] (5/325)) 2 tab Q4H PRN PO PAIN LEVEL 7 -10; Start 01/03/17 at 10:30 Hydromorphone HCl (Dilaudid) 0.5 mg Q2H PRN IV PAIN; Start 01/03/17 at 10:30 Hydromorphone HCl (Dilaudid) 1 mg Q2 PRN IV PAIN; Start 01/03/17 at 10:30 Docusate Sodium (Colace) 100 mg BID PRN PO CONSTIPATION; Start 01/03/17 at 10: 30 Bisacodyl (Dulcolax Supp) 10 mg BID PRN [place] CONSTIPATION; Start 01/03/17 at 10: 30 Sodium Biphosphate/ Sodium Phosphate (Fleet Enema) 133 ml BID PRN [place] CONSTIPATION; Start 01/03/17 at 10:30 SAMSON SHAFFER NP January 03, 2017 12:18
[2017-01-03 14:24] LABS: MICROALBUMIN 4.2 mg/dL
[2017-01-03] MEDS: SOD CHLORIDE 0.9% 1,000 ML IV SCH (15:15)
[2017-01-03] MEDS: morphine 2 MG INJ IV PRN ×2 (15:27→20:56)
--- NOTE | 2017-01-03 15:39 | PN ---
Date/Time of Note Date/Time of Note DATE: 01/03/17 TIME: 15:36 Assessment/Plan VTE Prophylaxis VTE Prophylaxis Intervention: ambulation Lines/Catheters IV C[facility]ter Type (from [facility]): Peripheral IV Urinary Cath still in place: No Assessment/Plan Assessment/Plan * Abdominal pain Cholecystitis with chololithiasis Laparoscopic cholecystectomy with drain 01/03/2017 ERCP 12/31/2016 Small 6 mm antral gastric ulceration, benign endoscopic appearance. Normal ampulla of Vater. . Normal partially filled pancreatogram with exception of slight dilatation in the head of the pancreas. . Markedly dilated common bile duct, we no definitive stones or intraductal pathology suggestive of ampullary stricture post sphincterotomy and brushings. Post-placement of 10-[place]z 7 cm stent with excellent drainage * Hx of COPD * Chronic kidney disease Plan * awaiting biopsy,CEA,[id number] results * continue present management Subjective 24 Hr Interval Summary Free Text/Dictation * Course reviewed with RN * patient seen and examined * S/P cholecystectomy with drain 01/03/2017 Exam/Review of Systems Vital Signs Vitals Vital Signs Date Time Temp Pulse Resp B/P Pulse Ox O2 Delivery O2 Flow Rate FiO2 01/03/17 13:13 74 18 95 Nasal Cannula 3.0 01/03/17 12:30 99/54 01/03/17 11:30 98.0 01/01/17 16:46 32 Intake and Output 01/02/17 01/02/17 01/03/17 15:00 23:00 07:00 Intake Total 1705 ml 1000 ml Output Total 1050 ml 1200 ml Balance 655 ml -200 ml Exam Constitutional: alert, oriented Head: atraumatic, normocephalic Neck: non-tender, supple Respiratory: clear to auscultation, normal air movement Cardiovascular: nl pulses, regular rate and rhythm Gastrointestinal: non-tender, soft Musculoskeletal: nl extremities to inspection, nl gait and stance Extremities: normal pulses Results Result Diagram: 01/03/17 0520 01/03/17 0520 Results 24 hrs Laboratory Tests Test 01/03/17 05:20 White Blood Count 16.5 H Red Blood Count 3.38 L Hemoglobin 9.2 L Hematocrit 29.5 L Mean Corpuscular Volume 87.3 Mean Corpuscular Hemoglobin 27.2 L Mean Corpuscular Hemoglobin Concent 31.2 L Red Cell Distribution Width 14.7 H Platelet Count 250 Mean Platelet Volume 9.7 Neutrophils % 81.5 H Lymphocytes % 9.4 L Monocytes % 6.5 Eosinophils % 0.7 Basophils % 0.2 Nucleated Red Blood Cells % 0.0 Neutrophils # 13.4 H Lymphocytes # 1.6 Monocytes # 1.1 H Eosinophils # 0.1 Basophils # 0.0 Nucleated Red Blood Cells # 0.0 Prothrombin Time 18.0 H Prothrombin Time Ratio 1.4 INR International Normalized Ratio 1.48 Activated Partial Thromboplast Time 42.0 H Sodium Level 136 Potassium Level 4.0 Chloride Level 105 Carbon Dioxide Level 21 Anion Gap 14 Blood Urea Nitrogen 17 Creatinine 1.23 H Glucose Level 106 Calcium Level 8.2 L Phosphorus Level 3.2 Magnesium Level 1.6 L Total Bilirubin 0.0 L Direct Bilirubin 0.00 Indirect Bilirubin 0.0 Aspartate Amino Transf (AST/SGOT) 11 L Alanine Aminotransferase (ALT/SGPT) 24 Alkaline Phosphatase 205 H Total Protein 5.6 L Albumin 2.4 L Globulin 3.20 Albumin/Globulin Ratio 0.75 Medications Medications Current Medications Ciprofloxacin/ Dextrose 200 ml @ 200 mls/hr Q24H IVPB Last administered on 17:46; Admin Dose 200 MLS/HR; Start 12/29/16 at 18:30 Metronidazole (Flagyl 500 Mg (Pmx)) 100 ml @ 100 mls/hr Q8 IVPB Last administered on 01/03/17 13:48; Admin Dose 100 MLS/HR; Start 12/29/16 at 22:00 Morphine Sulfate (morphine) 2 mg Q4H PRN IV PAIN Last administered on 15:27; Admin Dose 2 MG; Start 12/29/16 at 18:30 Famotidine (Pepcid) 20 mg Q24H PO Last administered on 01/02/17 20:14; Admin Dose 20 MG; Start 12/29/16 at 21:00 Docusate Sodium (Colace) 100 mg BID PO Last administered on 01/02/17 20:14; Admin Dose 100 MG; Start 12/29/16 at 21:00 Miscellaneous Information Patients own medicat... BID@10,16 XX ; Start 12/30/16 at 10:00 Sodium Chloride (NS) 1,000 ml @ 75 mls/hr [id number] IV Last administered on 01/02 17:45; Admin Dose 75 MLS/HR; Start 12/31/16 at 09:30 Salmeterol Xinafoate/ Fluticasone (Advair 250/50 Diskus) 1 inh BID INH Last administered on 01/02/17 20:18; Admin Dose 1 INH; Start 12/31/16 at 13:00 Sumatriptan Succinate (Imitrex) 50 mg DAILY PRN PO FOR MIGRAINE.MRX1 IN 24HOUR Last administered on 01/02/17 10:49; Admin Dose 50 MG; Start 01/02/17 at 01:00 Topiramate 50 mg 50 mg BID PO Last administered on 01/02/17 20:14; Admin Dose 50 MG; Start 01/02/17 at 21:00 Potassium Chloride/Dextrose/ Sod Cl (D5-1/2ns + KCl 20 Meq) 1,000 ml @ 100 mls/ hr Q10H IV Last administered on 01/03/17 11:52; Admin Dose 100 MLS/HR; Start 01/03/17 at 10:10 Acetaminophen/ Hydrocodone Bitart ([place] (5/325)) 1 tab Q4H PRN PO PAIN LEVEL 4 -7; Start 01/03/17 at 10:30 Acetaminophen/ Hydrocodone Bitart ([place] (5/325)) 2 tab Q4H PRN PO PAIN LEVEL 7 -10; Start 01/03/17 at 10:30 Hydromorphone HCl (Dilaudid) 0.5 mg Q2H PRN IV PAIN; Start 01/03/17 at 10:30 Hydromorphone HCl (Dilaudid) 1 mg Q2 PRN IV PAIN; Start 01/03/17 at 10:30 Docusate Sodium (Colace) 100 mg BID PRN PO CONSTIPATION; Start 01/03/17 at 10: 30 Bisacodyl (Dulcolax Supp) 10 mg BID PRN [place] CONSTIPATION; Start 01/03/17 at 10: 30 Sodium Biphosphate/ Sodium Phosphate (Fleet Enema) 133 ml BID PRN [place] CONSTIPATION; Start 01/03/17 at 10:30 DELGADO RICHARDS MD January 03, 2017 15:39
[2017-01-03] MEDS: CIPROFLOXACIN 400MG/D5W 200 ML IVPB SCH (17:30)
[2017-01-03] MEDS: FAMOTIDINE 20 MG TAB PO SCH (20:49)
[2017-01-04] MEDS: morphine 2 MG INJ IV PRN ×2 (04:22→18:41)
[2017-01-04] MEDS: D5W-0.45 NACL + KCL 20 MEQ 1,000 ML IV SCH ×2 (06:22→16:10)
[2017-01-04] MEDS: metroNIDAZOLE 500 MG/NS (PMX) 100 ML IVPB SCH ×3 (06:22→22:07)
[2017-01-04] MEDS: SOD CHLORIDE 0.9% 1,000 ML IV SCH ×2 (06:50→20:10)
--- NOTE | 2017-01-04 07:38 | PN ---
Date/Time of Note Date/Time of Note DATE: 01/04/17 TIME: 07:37 Assessment/Plan VTE Prophylaxis VTE Prophylaxis Intervention: SCD's Lines/Catheters IV C[facility]ter Type (from [facility]): Peripheral IV Urinary Cath still in place: No Assessment/Plan Chief Complaint/Hosp Course 1. Symptomatic cholelithiasis with possible underlying choledocholithiasis. Continue pain control. Continue empiric antibiotics. The patient is being evaluated by gastroenterology and general surgery. ERCP showed a markedly dilated common bile duct with no definitive stones or intraductal pathology suggestive of ampullary stricture. Status post sphincterotomy brushings and placement of a 10 [place] 7 cm stent. Status post cholecystectomy on 01/03/2017. 2. Leukocytosis. Most probably secondary to #1. No evidence of any septic shock. Continue empiric antibiotics. 3. Nicotine use. The patient is trying to quit nicotine use. The patient refused a nicotine patch. 4. Chronic kidney disease. 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. Patient being followed by nephrology. 5. Normocytic hypochromic anemia. Etiology unclear, most probably secondary to underlying chronic kidney disease. Continue to monitor H&H closely. Iron panel showing iron deficiency. Continue iron supplements. 6. COPD. No evidence of exacerbation. Continue inhaled bronchodilators. 7. Fluid, electrolytes and nutrition. Resume diet as per surgery. Continue on IV fluids. 8. Migraines. Continue as needed triptans. Continue topiramate. 9. Deep venous thrombosis prophylaxis. Bilateral sequential compression devices. 10. Gastrointestinal prophylaxis. Histamine 2 receptor blockers. PLAN: Continue pain control. Continue IV hydration. Continue antibiotics. Advance diet as per surgery. Encourage frequent ambulation and frequent use of incentive spirometry. Case discussed with Dr. Whyte. Problems: Subjective 24 Hr Interval Summary Free Text/Dictation Tolerating oral intake. Exam/Review of Systems Vital Signs Vitals Vital Signs Date Time Temp Pulse Resp B/P Pulse Ox O2 Delivery O2 Flow Rate FiO2 01/04/17 01:59 3.0 01/03/17 20:00 Nasal Cannula 01/03/17 19:58 75 18 100 01/03/17 19:41 98.7 116/67 01/01/17 16:46 32 Intake and Output 01/03/17 01/03/17 01/04/17 15:00 23:00 07:00 Intake Total 1350 ml 1480 ml 600 ml Output Total 110 ml 1170 ml 15 ml Balance 1240 ml 310 ml 585 ml Exam GENERAL: This is a 61-year-old female patient lying in bed in no apparent distress. HEENT: Head normocephalic and atraumatic. Eyes: Anicteric sclerae. Conjunctivae clear. ENT: Nasal septum is midline. Oral mucosa is dry. NECK: Supple. No JVD noticed. RESPIRATORY: Bilateral diminished breath sounds. No use of accessory muscles of respiration. Bilateral scattered rhonchi. CARDIAC: Regular rate and rhythm. No murmurs heard. ABDOMEN: Soft. Diffuse tenderness especially in the right upper quadrant. No guarding. Laparoscopic incision sites clean, dry, and intact. KRISTEN drain in place. GENITOURINARY: Deferred. EXTREMITIES: No cyanosis, no clubbing, no edema. Peripheral pulses palpable. NEUROLOGIC: The patient is awake, alert and oriented. Cranial nerves are grossly intact. Results Result Diagram: 01/03/1751901/03/17519 Medications Medications Current Medications Ciprofloxacin/ Dextrose 200 ml @ 200 mls/hr Q24H IVPB Last administered on 17:30; Admin Dose 200 MLS/HR; Start 12/29/16 at 18:30 Metronidazole (Flagyl 500 Mg (Pmx)) 100 ml @ 100 mls/hr Q8 IVPB Last administered on 01/04/17 06:22; Admin Dose 100 MLS/HR; Start 12/29/16 at 22:00 Morphine Sulfate (morphine) 2 mg Q4H PRN IV PAIN Last administered on 04:22; Admin Dose 2 MG; Start 12/29/16 at 18:30 Famotidine (Pepcid) 20 mg Q24H PO Last administered on 01/03/17 20:49; Admin Dose 20 MG; Start 12/29/16 at 21:00 Docusate Sodium (Colace) 100 mg BID PO Last administered on 01/03/17 20:49; Admin Dose 100 MG; Start 12/29/16 at 21:00 Miscellaneous Information Patients own medicat... BID@10,16 XX ; Start 12/30/16 at 10:00 Sodium Chloride (NS) 1,000 ml @ 75 mls/hr [id number] IV Last administered on 01/02 17:45; Admin Dose 75 MLS/HR; Start 12/31/16 at 09:30 Salmeterol Xinafoate/ Fluticasone (Advair 250/50 Diskus) 1 inh BID INH Last administered on 01/03/17 20:50; Admin Dose 1 INH; Start 12/31/16 at 13:00 Sumatriptan Succinate (Imitrex) 50 mg DAILY PRN PO FOR MIGRAINE.MRX1 IN 24HOUR Last administered on 01/02/17 10:49; Admin Dose 50 MG; Start 01/02/17 at 01:00 Topiramate 50 mg 50 mg BID PO Last administered on 01/03/17 20:49; Admin Dose 50 MG; Start 01/02/17 at 21:00 Potassium Chloride/Dextrose/ Sod Cl (D5-1/2ns + KCl 20 Meq) 1,000 ml @ 100 mls/ hr Q10H IV Last administered on 01/04/17 06:22; Admin Dose 100 MLS/HR; Start 01/03/17 at 10:10 Acetaminophen/ Hydrocodone Bitart ([place] (5/325)) 1 tab Q4H PRN PO PAIN LEVEL 4 -7; Start 01/03/17 at 10:30 Acetaminophen/ Hydrocodone Bitart ([place] (5/325)) 2 tab Q4H PRN PO PAIN LEVEL 7 -10; Start 01/03/17 at 10:30 Hydromorphone HCl (Dilaudid) 0.5 mg Q2H PRN IV PAIN; Start 01/03/17 at 10:30 Hydromorphone HCl (Dilaudid) 1 mg Q2 PRN IV PAIN; Start 01/03/17 at 10:30 Docusate Sodium (Colace) 100 mg BID PRN PO CONSTIPATION; Start 01/03/17 at 10: 30 Bisacodyl (Dulcolax Supp) 10 mg BID PRN [place] CONSTIPATION; Start 01/03/17 at 10: 30 Sodium Biphosphate/ Sodium Phosphate (Fleet Enema) 133 ml BID PRN [place] CONSTIPATION; Start 01/03/17 at 10:30 SAMSON SHAFFER NP January 04, 2017 07:38
[2017-01-04] MEDS: ALBUTEROL/IPRATROPIUM (NEB) 3 ML AMP HHN SCH ×3 (08:15→20:17)
[2017-01-04] MEDS: TOPIRAMATE 25 MG TAB PO SCH ×2 (08:16→20:51)
[2017-01-04] MEDS: DOCUSATE SODIUM 100 MG CAP PO SCH ×2 (08:16→20:52)
[2017-01-04] MEDS: SALMETEROL/FLUTICASONE 250/50 INHA INH SCH ×2 (08:17→20:54)
[2017-01-04 08:19] VITALS: BP 100/51; RESP 20
[2017-01-04 08:56] LABS: ADD SCAN DIFF NO
[2017-01-04 09:02] LABS: BASOPHILS % 0.3 % (0.0-2.0); EOSINOPHILS # 0.3 10^3/ul (0.0-0.5); EOSINOPHILS % 1.8 % (0.0-7.0); HEMATOCRIT 28.4 % (37.0-47.0); LYMPHOCYTES # 1.8 10^3/ul (0.8-2.9); LYMPHOCYTES % 11.6 % (15.0-51.0); MEAN CORPUSCULAR HEMOGLOBIN 28.4 pg (29.0-33.0); MEAN CORPUSCULAR HGB CONC 31.7 g/dl (32.0-37.0); MEAN CORPUSCULAR VOLUME 89.6 fl (82.0-101.0); MEAN PLATELET VOLUME 9.8 fl (7.4-10.4); MONOCYTES % 6.5 % (0.0-11.0); NEUTROPHIL # 12.3 10^3/ul (1.6-7.5); NEUTROPHILS % 76.8 % (39.0-77.0); PLATELET COUNT 297 10^3/UL (140-415); RED BLOOD COUNT 3.17 10^6/ul (4.20-5.40); RED CELL DISTRIBUTION WIDTH 14.9 % (11.5-14.5); WHITE BLOOD COUNT 15.9 10^3/ul (4.8-10.8)
[2017-01-04 09:23] LABS: INR 1.26; PROTIME 15.9 Sec (12.2-14.2); PT RATIO 1.2
[2017-01-04 09:24] LABS: PARTIAL THROMBOPLASTIN TIME 32.6 Sec (25.0-35.0)
[2017-01-04 09:28] LABS: MAGNESIUM 1.8 mg/dl (1.7-2.5); PHOSPHORUS 3.2 mg/dl (2.5-4.9)
[2017-01-04 09:29] LABS: ALBUMIN 2.6 g/dl (3.3-4.9); ALBUMIN/GLOBULIN RATIO 0.78; CREATININE 1.32 mg/dl (0.44-1.00); POTASSIUM 5.1 mmol/L (3.5-5.1); TOTAL PROTEIN 5.9 g/dl (6.1-8.1)
[2017-01-04] MEDS: HYDROmorphONE 1 MG/ML SYG IV PRN ×3 (10:21→22:07)
--- NOTE | 2017-01-04 13:55 | PN ---
Date/Time of Note Date/Time of Note DATE: 01/04/17 TIME: 13:53 Assessment/Plan VTE Prophylaxis VTE Prophylaxis Intervention: SCD's Lines/Catheters IV C[facility]ter Type (from [facility]): Peripheral IV Urinary Cath still in place: No Assessment/Plan Assessment/Plan Assessment/Plan * Abdominal pain Cholecystitis with chololithiasis Laparoscopic cholecystectomy with drain 01/03/2017 ERCP 12/31/2016 Small 6 mm antral gastric ulceration, benign endoscopic appearance. Normal ampulla of Vater. . Normal partially filled pancreatogram with exception of slight dilatation in the head of the pancreas. . Markedly dilated common bile duct, we no definitive stones or intraductal pathology suggestive of ampullary stricture post sphincterotomy and brushings. Post-placement of 10-E[place]ian 7 cm stent with excellent drainage * Hx of COPD * Chronic kidney disease Plan * pain control * continue present management Subjective 24 Hr Interval Summary Free Text/Dictation * Course reviewed with RN * patient seen and examined * on and off abdominal pain Exam/Review of Systems Vital Signs Vitals Vital Signs Date Time Temp Pulse Resp B/P Pulse Ox O2 Delivery O2 Flow Rate FiO2 01/04/17 10:53 2.0 01/04/17 09:00 95 21 01/04/17 08:19 98.2 81 20 100/51 01/04/17 08:15 Nasal Cannula Intake and Output 01/03/17 01/03/17 01/04/17 15:00 23:00 07:00 Intake Total 1350 ml 1480 ml 600 ml Output Total 110 ml 1170 ml 15 ml Balance 1240 ml 310 ml 585 ml Exam Constitutional: alert, frail Head: atraumatic, normocephalic Eyes: nl conjunctiva, nl sclera Neck: non-tender, supple Respiratory: clear to auscultation, normal air movement Cardiovascular: nl pulses, regular rate and rhythm Gastrointestinal: non-tender, soft, No rebound or guarding Musculoskeletal: nl extremities to inspection, nl gait and stance Extremities: normal pulses Results Result Diagram: 01/04/17 0753 01/04/17 0753 Results 24 hrs Laboratory Tests Test 01/04/17 07:23 01/04/17 07:53 01/04/17 09:27 Prothrombin Time 15.9 H Prothrombin Time Ratio 1.2 INR International Normalized Ratio 1.26 Activated Partial Thromboplast Time 32.6 White Blood Count 15.9 H Red Blood Count 3.17 L Hemoglobin 9.0 L Hematocrit 28.4 L Mean Corpuscular Volume 89.6 Mean Corpuscular Hemoglobin 28.4 L Mean Corpuscular Hemoglobin Concent 31.7 L Red Cell Distribution Width 14.9 H Platelet Count 297 Mean Platelet Volume 9.8 Neutrophils % 76.8 Lymphocytes % 11.6 L Monocytes % 6.5 Eosinophils % 1.8 Basophils % 0.3 Nucleated Red Blood Cells % 0.0 Neutrophils # 12.3 H Lymphocytes # 1.8 Monocytes # 1.0 H Eosinophils # 0.3 Basophils # 0.0 Nucleated Red Blood Cells # 0.0 Sodium Level 134 L Potassium Level 5.1 Chloride Level 107 Carbon Dioxide Level 23 Anion Gap 9 # Blood Urea Nitrogen 15 Creatinine 1.32 H Glucose Level 125 Lactic Acid Level 1.7 Calcium Level 8.0 L Phosphorus Level 3.2 Magnesium Level 1.8 Total Bilirubin 0.0 L Direct Bilirubin 0.00 Indirect Bilirubin 0.0 Aspartate Amino Transf (AST/SGOT) 37 Alanine Aminotransferase (ALT/SGPT) 35 Alkaline Phosphatase 156 H B-Type Natriuretic Peptide 3400 H Total Protein 5.9 L Albumin 2.6 L Globulin 3.30 H Albumin/Globulin Ratio 0.78 Lab Scanned Report REFERENCE LAB Medications Medications Current Medications Ciprofloxacin/ Dextrose 200 ml @ 200 mls/hr Q24H IVPB Last administered on 17:30; Admin Dose 200 MLS/HR; Start 12/29/16 at 18:30 Metronidazole (Flagyl 500 Mg (Pmx)) 100 ml @ 100 mls/hr Q8 IVPB Last administered on 01/04/17 06:22; Admin Dose 100 MLS/HR; Start 12/29/16 at 22:00 Morphine Sulfate (morphine) 2 mg Q4H PRN IV PAIN Last administered on 04:22; Admin Dose 2 MG; Start 12/29/16 at 18:30 Famotidine (Pepcid) 20 mg Q24H PO Last administered on 01/03/17 20:49; Admin Dose 20 MG; Start 12/29/16 at 21:00 Docusate Sodium (Colace) 100 mg BID PO Last administered on 01/04/17 08:16; Admin Dose 100 MG; Start 12/29/16 at 21:00 Miscellaneous Information Patients own medicat... BID@10,16 XX ; Start 12/30/16 at 10:00 Sodium Chloride (NS) 1,000 ml @ 75 mls/hr [id number] IV Last administered on 01/02 17:45; Admin Dose 75 MLS/HR; Start 12/31/16 at 09:30 Salmeterol Xinafoate/ Fluticasone (Advair 250/50 Diskus) 1 inh BID INH Last administered on 01/04/17 08:17; Admin Dose 1 INH; Start 12/31/16 at 13:00 Sumatriptan Succinate (Imitrex) 50 mg DAILY PRN PO FOR MIGRAINE.MRX1 IN 24HOUR Last administered on 01/02/17 10:49; Admin Dose 50 MG; Start 01/02/17 at 01:00 Topiramate 50 mg 50 mg BID PO Last administered on 01/04/17 08:16; Admin Dose 50 MG; Start 01/02/17 at 21:00 Potassium Chloride/Dextrose/ Sod Cl (D5-1/2ns + KCl 20 Meq) 1,000 ml @ 100 mls/ hr Q10H IV Last administered on 01/04/17 06:22; Admin Dose 100 MLS/HR; Start 01/03/17 at 10:10 Acetaminophen/ Hydrocodone Bitart ([place] (5/325)) 1 tab Q4H PRN PO PAIN LEVEL 4 -7; Start 01/03/17 at 10:30 Acetaminophen/ Hydrocodone Bitart ([place] (5/325)) 2 tab Q4H PRN PO PAIN LEVEL 7 -10; Start 01/03/17 at 10:30 Hydromorphone HCl (Dilaudid) 0.5 mg Q2H PRN IV PAIN; Start 01/03/17 at 10:30 Hydromorphone HCl (Dilaudid) 1 mg Q2 PRN IV PAIN Last administered on 10:21; Admin Dose 1 MG; Start 01/03/17 at 10:30 Docusate Sodium (Colace) 100 mg BID PRN PO CONSTIPATION; Start 01/03/17 at 10: 30 Bisacodyl (Dulcolax Supp) 10 mg BID PRN [place] CONSTIPATION; Start 01/03/17 at 10: 30 Sodium Biphosphate/ Sodium Phosphate (Fleet Enema) 133 ml BID PRN [place] CONSTIPATION; Start 01/03/17 at 10:30 DELGADO RICHARDS MD January 04, 2017 13:55
--- NOTE | 2017-01-04 14:35 | PN ---
Date/Time of Note Date/Time of Note DATE: 01/04/17 TIME: 08:29 Assessment/Plan Lines/Catheters IV Catheter Type (from Nrs): Peripheral IV Haley in Place (from Nrs): No Assessment/Plan Assessment/Plan [facility] Progress Note Date of Service: 01/04/17 Today's Impression & Plan: Overall stable and improved after difficult but uncomplicated lap radha . No obvious evidence of major post operative complication. Drain output ss and no indication of bile leak or intestinal leak. I'm pleased with patient's progress. Given severity of disease, patient will likely need to spend at least 24-48 hrs for post operative care and observation. With above assessment, I've recommended the following for today: 1. Advance diet 2. Increase activity 3. Increase ICS 4. Will d/c drain tomorrow 5. Diuresis as needed 6. Potential d/c home tomorrow Thank you again for your great care of this very pleasant patient and wonderful family. If there are any questions, please feel free to call me at [phone]. TOTAL VISIT TIME: 20 minutes of which more than half was spent in the operating room, as well as coordination of care between multiple physicians and providers. Disclaimer: Inadvertent spelling or grammatical errors are likely due to EHR/ dictation software use and do not reflect on the overall quality of patient care. Updated Clinical Summary: A very pleasant 61-year-old lady admitted through the [facility] Emergency Room on 12/29/2016 with evidence for possible acute cholecystitis as well as choledocholithiasis. S/p difficult but uncomplicated lap radha 01/03/17. COMORBIDITIES: 1. BMI 26.9. 2. Smoking history. 3. Renal insufficiency. 4. History of known cholelithiasis. 5. Status post appendectomy. 6. Status post hysterectomy. 7. S/p difficult but uncomplicated lap radha 01/03/17 for perforated gangrenous acute on chronic cholecystitis. Subjective: No major events or complaints; sig improvement in original abd pain and only pain now are from incisions; seems under control with medications; no n/v/d; no sob or cp; + flatus; - BM; minimal activity Objective: Vitals: See below Exam: GENERAL: On exam, the patient was laying in bed and appeared to be comfortable and in no acute distress. ABDOMEN: Soft, minimally tender to palpation around the incisions, and nondistended. Incision dressings c/d/i w/o obvious underlying e/e/d/h. There are no peritoneal signs or guarding. SKIN: Skin appears to be pink and feels warm to touch. NEUROLOGIC: Patient is awake, alert, and follows commands appropriately. Does not appear confused Exam/Review of Systems Vital Signs Vitals Vital Signs Date Time Temp Pulse Resp B/P Pulse Ox O2 Delivery O2 Flow Rate FiO2 01/04/17 10:53 2.0 01/04/17 09:00 95 21 01/04/17 08:19 98.2 81 20 100/51 01/04/17 08:15 Nasal Cannula Intake and Output 01/03/17 01/03/17 01/04/17 15:00 23:00 07:00 Intake Total 1350 ml 1480 ml 600 ml Output Total 110 ml 1170 ml 15 ml Balance 1240 ml 310 ml 585 ml Results Result Diagram: 01/04/17 0753 01/04/17 0753 NAIDA REDDY M.D. January 04, 2017 14:35
[2017-01-04] MEDS: CIPROFLOXACIN 400MG/D5W 200 ML IVPB SCH (17:39)
[2017-01-04 19:31] VITALS: BP 102/68; RESP 18
[2017-01-04] MEDS: FAMOTIDINE 20 MG TAB PO SCH (20:51)
[2017-01-05] MEDS: HYDROmorphONE 1 MG/ML SYG IV PRN ×6 (02:25→20:20)
[2017-01-05] MEDS: D5W-0.45 NACL + KCL 20 MEQ 1,000 ML IV SCH (02:31)
[2017-01-05] MEDS: ALBUTEROL/IPRATROPIUM (NEB) 3 ML AMP HHN PRN (02:41)
[2017-01-05] MEDS: metroNIDAZOLE 500 MG/NS (PMX) 100 ML IVPB SCH ×3 (05:43→22:33)
[2017-01-05 07:30] VITALS: BP 117/55; RESP 18
[2017-01-05] MEDS: SOD CHLORIDE 0.9% 1,000 ML IV SCH (07:58)
--- NOTE | 2017-01-05 08:17 | PN ---
DATE: 01/04/2017 SUBJECTIVE: The patient is stable. The patient yesterday had a laparoscopic cholecystectomy, itzel ated it well without any complications. No other events noted. OBJECTIVE: VITAL SIGNS: Blood pressure is 151, respirations 20, pulse 71, temperature 98.2. HEENT: Head is normocephalic. NECK: Supple. HEART: Regular rate. LUNGS: Show diminished breath sounds at the base. ABDOMEN: Soft, positive tenderness to palpation, positive drain noted. DERMATOLOGIC: No rashes. MUSCULOSKELETAL: No joint effusions. NEUROLOGIC: No focal deficits. EXTREMITIES: Negative for clubbing, cyanosis, or edema. MEDICATIONS: The patient's medications have been reviewed. LABORATORY DATA: Currently pending. ASSESSMENT AND PLAN: 1. Nonoliguric acute kidney injury on top of chronic kidney disease with a unilateral functioning k idney. Etiology of acute kidney injury is secondary to hemodynamics. Renal functions improved. At this point, continue current treatment plan, supportive care, renally dose all meds, avoid nephroto xins. 2. 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 The patient was born with atrophic r ight kidney. Renal function has improved. Continue treating acute kidney injury as stated above. Continue current treatment plan. 3. Mineral bone disorder. Continue to monitor calcium and phosphorus levels. 4. Hypomagnesemia. Continue to monitor. 5. Anemia. Continue to monitor hemoglobin and hematocrit levels. 6. Acute cholecystitis. The patient is status post laparoscopic cholecystectomy postop day #1. Co ntinue to monitor, continue IV fluids. 7. Gastrointestinal and deep venous thrombosis prophylaxis. Continue PPI and sequential leg squeez ers. Dictated By: CAMERON MONTANEZ/JOHN Conf#: [id number] DID#: [id number]
[2017-01-05] MEDS: ALBUTEROL/IPRATROPIUM (NEB) 3 ML AMP HHN SCH ×3 (08:41→19:56)
[2017-01-05] MEDS: DOCUSATE SODIUM 100 MG CAP PO SCH ×2 (08:57→20:19)
[2017-01-05] MEDS: TOPIRAMATE 25 MG TAB PO SCH ×2 (08:57→20:20)
[2017-01-05 09:05] LABS: ADD SCAN DIFF NO
[2017-01-05 09:16] LABS: BASOPHILS % 0.3 % (0.0-2.0); EOSINOPHILS # 0.3 10^3/ul (0.0-0.5); EOSINOPHILS % 2.3 % (0.0-7.0); HEMATOCRIT 29.7 % (37.0-47.0); HEMOGLOBIN 9.5 g/dl (12.0-16.0); LYMPHOCYTES # 2.4 10^3/ul (0.8-2.9); LYMPHOCYTES % 16.4 % (15.0-51.0); MEAN CORPUSCULAR HEMOGLOBIN 27.9 pg (29.0-33.0); MEAN CORPUSCULAR VOLUME 87.1 fl (82.0-101.0); MONOCYTE # 1.2 10^3/ul (0.3-0.9); MONOCYTES % 8.4 % (0.0-11.0); NEUTROPHILS % 69.7 % (39.0-77.0); NUCLEATED RED BLOOD CELLS% 0.1 /100WBC (0.0-0.0); PLATELET COUNT 320 10^3/UL (140-415); RED BLOOD COUNT 3.41 10^6/ul (4.20-5.40); RED CELL DISTRIBUTION WIDTH 15.2 % (11.5-14.5); WHITE BLOOD COUNT 14.4 10^3/ul (4.8-10.8)
[2017-01-05] MEDS: SALMETEROL/FLUTICASONE 250/50 INHA INH SCH ×2 (09:17→20:19)
[2017-01-05 09:54] LABS: ALBUMIN 2.8 g/dl (3.3-4.9); POTASSIUM 4.6 mmol/L (3.5-5.1)
[2017-01-05 09:56] LABS: ALBUMIN/GLOBULIN RATIO 0.8; CREATININE 1.2 mg/dl (0.44-1.00); TOTAL PROTEIN 6.3 g/dl (6.1-8.1)
[2017-01-05 09:57] LABS: CALCIUM 8.4 mg/dl (8.4-10.2)
[2017-01-05 10:29] LABS: MAGNESIUM 1.9 mg/dl (1.7-2.5); PHOSPHORUS 3.5 mg/dl (2.5-4.9)
[2017-01-05] MEDS ORDERED: ACID1TAB14 PO (11:07)
[2017-01-05] MEDS ORDERED: METR500T14 PO (11:07)
[2017-01-05] MEDS ORDERED: DOCU250C58 PO (11:07)
[2017-01-05] MEDS ORDERED: HYDR-905 PO (11:07)
[2017-01-05] MEDS ORDERED: CIPR500T4 PO (11:07)
[2017-01-05] MEDS ORDERED: ADV25050 INH (11:07)
--- NOTE | 2017-01-05 11:07 | DS ---
Date/Time of Note Date/Time of Note DATE: 01/05/17 TIME: 11:01 Discharge Summary Admission/Discharge Info Admit Date/Time December 29, 2016 at 18:05 Discharge Date/Time January 05, 2017. . Final Diagnosis 1. Severe acute cholecystitis associated with cholelithiasis and choledocholithiasis with gangrene and perforation status post laparoscopic cholecystectomy January 03, [address] to be removed prior to discharge. 2. Acute on Chronic kidney disease: resolved 3. Normocytic hypochromic anemia likely secondary to chronic kidney disease 4. COPD without exacerbation #5 chronic intermittent migraines 5. Chronic tobacco use status post cessation counseling 6. Small benign gastric ulcer . Patient Condition: Stable Consults General surgery: Dr Adam Johnson Gastroenterology: Ceasar Jewell Nephrology: Noel Quesada . Hx of Present Illness PRESENTING COMPLAINT: abd pain HISTORY OF PRESENTING COMPLAINT: This is a pleasant 61-year-old female who presents to the ER today with abdominal pain. Pain is located in the epigastric region that has been going on for the last 2 days. Pain is associated with nausea and vomiting, and described as an aching and sharp pain. Patient does have a history of gallstones and she might have a history of renal problems. Pain was relieved by medications given in the emergency room. Patient was worked up extensively by ER doctor, and findings are highly suggestive of cholelithiasis with choledocholithiasis. She is being admitted for further workup and management as well as gastroenterology as well as surgical review. Hospital Course The patient was admitted, and as mentioned above consult to obtain with surgery , GI, nephrology. The patient was supported with anti-emetics and IV pain control. She underwent an ERCP December 31, 2016 that showed a small gastric ulceration that looked benign on endoscopy, a markedly dilated common bile duct without definitive stones or intraductal pathology suggestive of ampullary stricture and is a 7 cm stent was placed in the bile duct with excellent drainage. There was a slight dilatation in the head of the pancreas. Based on this findings, brushes were sent for pathology and tumor markers were also obtained. For the tumor markers CA-[id number] came back normal as did the carcinoembryonic antigen. She was taken to the operative room by the surgeon January 03, 2017 and underwent a laparoscopic cholecystectomy. She was found to have gangrene and perforation and a drain was left in place which is to be removed today prior to discharge. Pathology findings on the distal common bile duct proved to be insufficient for evaluation around the gallbladder showed just an acute gangrenous and chronic cholecystitis without evidence of malignancy. Her renal function improved nicely while in the hospital in a state stable and her electrolytes have all been monitored and repleted as indicated. She continues to do well and was currently awaiting a surgical clearance for discharge at this time. The patient was also counseled on the need to quit tobacco use and this was reinforced daily while in-house. Comorbidities were also aggressively managed as per Med records. Patient at this time has been evaluated and examined in detail and is assessed to be in stable condition and ready for discharge. Home Meds Active Scripts Lactobacillus Acidoph/Bulgaricus* (Floranex*) 1 Each Tablet, 1 TAB.CHEW PO BID for 7 Days, TAB.CHEW Prov:MARIBELL FLYNN M. 01/05/17 Metronidazole (Flagyl) 500 Mg Tab, 500 MG PO Q8 for 7 Days, TAB Prov:GARY FLYNNO M. 01/05/17 Ciprofloxacin Hcl* (Ciprofloxacin Hcl*) 500 Mg Tablet, 500 MG PO BID, #14 TAB Prov:GARY FLYNNO M. 01/05/17 Docusate Sodium* (Colace*) 250 Mg Capsule, 250 MG PO DAILY, #30 CAP Prov:MARIBELL FLYNN M. 01/05/17 Hydrocodone/Acetaminophen ([place] 7.5-325 Tablet) 1 Each Tablet, 1 EACH PO Q6H, # 60 TAB Prov:MARIBELL FLYNN . 01/05/17 Salmeterol Xinaf/Fluticasone* (Advair*) 250-50 Diskus Inhaler, 1 INH INH BID, # 1 VIAL 2 Refills Prov:MARIBELL FLYNN . 01/05/17 Reported Medications Promethazine Hcl* (Phenergan*) 25 Mg Tablet, 25 MG PO Q6H Y for NAUSEA AND/OR VOMITING, TAB 12/29/16 Omeprazole* (Omeprazole*) 20 Mg Capsule.dr, 20 MG PO DAILY, #30 CAP 12/29/16 Simvastatin* (Zocor*) 40 Mg Tablet, 40 MG PO QHS, #30 TAB 12/29/16 Follow-up Plan The patient will follow up with the surgeon, as well as her primary care physician within the next 2 weeks to ensure continued resolution of symptoms. She is to return to ER if symptoms recur, she develops fever, or she is unable to reach her PCP. . Primary Care Provider Jose L Lane Time spent on discharge: > 30 minutes Pending Labs Laboratory Tests Test 01/05/17 08:15 White Blood Count 14.410^3/ul (4.8-10.8) Red Blood Count 3.4110^6/ul (4.20-5.40) Hemoglobin 9.5g/dl (12.0-16.0) Hematocrit 29.7% (37.0-47.0) Mean Corpuscular Volume 87.1fl (82.0-101.0) Mean Corpuscular Hemoglobin 27.9pg (29.0-33.0) Mean Corpuscular Hemoglobin Concent 32.0g/dl (32.0-37.0) Red Cell Distribution Width 15.2% (11.5-14.5) Platelet Count 43101^3/UL (140-415) Mean Platelet Volume 10.0fl (7.4-10.4) Neutrophils % 69.7% (39.0-77.0) Lymphocytes % 16.4% (15.0-51.0) Monocytes % 8.4% (0.0-11.0) Eosinophils % 2.3% (0.0-7.0) Basophils % 0.3% (0.0-2.0) Nucleated Red Blood Cells % 0.1/100WBC (0.0-0.0) Neutrophils # 10.010^3/ul (1.6-7.5) Lymphocytes # 2.410^3/ul (0.8-2.9) Monocytes # 1.210^3/ul (0.3-0.9) Eosinophils # 0.310^3/ul (0.0-0.5) Basophils # 0.010^3/ul (0.0-0.1) Nucleated Red Blood Cells # 0.010^3/ul (0.0-0.0) Sodium Level 134mmol/L (135-144) Potassium Level 4.6mmol/L (3.5-5.1) Chloride Level 106mmol/L (97-110) Carbon Dioxide Level 20mmol/L (21-31) Anion Gap 13 (8-16) Blood Urea Nitrogen 13mg/dl (7-20) Creatinine 1.20mg/dl (0.44-1.00) Glucose Level 113mg/dl (70-220) Calcium Level 8.4mg/dl (8.4-10.2) Phosphorus Level 3.5mg/dl (2.5-4.9) Magnesium Level 1.9mg/dl (1.7-2.5) Total Bilirubin 0.0mg/dl (0.2-1.3) Direct Bilirubin 0.00mg/dl (0.00-0.20) Indirect Bilirubin 0.0mg/dl (0-1.1) Aspartate Amino Transf (AST/SGOT) 28IU/L (15-46) Alanine Aminotransferase (ALT/SGPT) 35IU/L (13-69) Alkaline Phosphatase 160IU/L (42-121) Total Protein 6.3g/dl (6.1-8.1) Albumin 2.8g/dl (3.3-4.9) Globulin 3.50g/dl (1.3-3.2) Albumin/Globulin Ratio 0.80 MARIBELL FLYNN January 05, 2017 11:07
--- NOTE | 2017-01-05 11:45 | PN ---
DATE: 01/05/2017 SUBJECTIVE: The patient is stable, no acute events overnight. No fevers, chills, nausea or vomitin g. No shortness of breath. OBJECTIVE: VITAL SIGNS: Blood pressure is 117/55, respirations 18, pulse 77, temperature 98.6. HEENT: Head is normocephalic. NECK: Supple. HEART: Regular rate. LUNGS: Show diminished breath sounds at the bases. ABDOMEN: Soft, nontender to palpation. No rebound or guarding. EXTREMITIES: Negative for clubbing, cyanosis. No edema. DERMATOLOGIC: No rashes. MUSCULOSKELETAL: No joint effusions. NEUROLOGIC: No change in exam. MEDICATIONS: The patient's medications have been reviewed. LABORATORY DATA: Shows sodium 134, potassium 5.0, chloride 107, BUN 15, creatinine 1.32. White cou nt is 15.9, hemoglobin 9.0, hematocrit 28.4, platelet count is 297. ASSESSMENT AND PLAN: 1. Nonoliguric acute kidney injury on top of chronic kidney disease with a unilateral functioning k idney. Etiology of acute kidney injury secondary to hemodynamics. Renal function has improved. At this point, continue current treatment plan, supportive care, renally dose all meds. 2. 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 The patient's renal function appears to have stabilized. We will continue current treatment plan, supportive care, renally dose all med s. 3. Hyponatremia. Etiology secondary to hypertonic fluids. We will discontinue half normal saline and monitor. 4. Anemia. Continue to monitor hemoglobin and hematocrit levels. 5. Acute cholecystitis. The patient is status post laparoscopic cholecystectomy. Continue medical management. 6. Gastrointestinal and deep venous thrombosis prophylaxis. Continue to monitor. Dictated By: CAMERON PUTNAM DO NR/JOHN Conf#: [id number] DID#: [id number]
--- NOTE | 2017-01-05 15:27 | PN ---
Date/Time of Note Date/Time of Note DATE: 01/05/17 TIME: 15:23 Assessment/Plan Lines/Catheters IV Catheter Type (from [facility]): Peripheral IV Haley in Place (from [facility]): No Assessment/Plan Assessment/Plan [facility] Progress Note Date of Service: 01/05/17 Today's Impression & Plan: Overall stable and continuing to improve after difficult but uncomplicated lap radha 01/03/17. No obvious evidence of major post operative complication. Drain output ss and no indication of bile leak or intestinal leak and d/c'd at bedside. CO2 rise and slight rise in WBC and alk phos is expected and I do not suspect major intra-abdominal issues, but given clinical picture, her cough, and operative findings, would like to keep her overnight for further observation. With above assessment, I've recommended the following for today: 1. Cont regular diet 2. Increase activity 3. Increase ICS 4. Likely d/c home tomorrow 5. Diuresis as needed 6. Labs in am Thank you again for your great care of this very pleasant patient and wonderful family. If there are any questions, please feel free to call me at [phone]. TOTAL VISIT TIME: 20 minutes of which more than half was spent in the operating room, as well as coordination of care between multiple physicians and providers. Disclaimer: Inadvertent spelling or grammatical errors are likely due to EHR/ dictation software use and do not reflect on the overall quality of patient care. Updated Clinical Summary: A very pleasant 61-year-old lady admitted through the [facility] Emergency Room on 12/29/2016 with evidence for possible acute cholecystitis as well as choledocholithiasis. S/p difficult but uncomplicated lap radha 01/03/17. Drain d/c 01/05/17. COMORBIDITIES: 1. BMI 26.9. 2. Smoking history. 3. Renal insufficiency. 4. History of known cholelithiasis. 5. Status post appendectomy. 6. Status post hysterectomy. 7. S/p difficult but uncomplicated lap radha 01/03/17 for perforated gangrenous acute on chronic cholecystitis. Subjective: No major events or complaints; no major abd pain and only from incisions; seems under control with medications; no n/v/d; no sob or cp; + flatus; - BM; minimal activity Objective: Vitals: See below Exam: GENERAL: On exam, the patient was laying in bed and appeared to be comfortable and in no acute distress. ABDOMEN: Soft, minimally tender to palpation around the incisions, and nondistended. Incision dressings d/c'd and incisions c/d/i w/o obvious underlying e/e/d/h. Drain output minimal and ss; drain d/c'd at bedside without any difficulty. There are no peritoneal signs or guarding. SKIN: Skin appears to be pink and feels warm to touch. NEUROLOGIC: Patient is awake, alert, and follows commands appropriately. Does not appear confused Exam/Review of Systems Vital Signs Vitals Vital Signs Date Time Temp Pulse Resp B/P Pulse Ox O2 Delivery O2 Flow Rate FiO2 01/05/17 13:36 78 20 94 Nasal Cannula 2.0 28 01/05/17 07:30 98.6 117/55 Intake and Output 01/04/17 01/04/17 01/05/17 15:00 23:00 07:00 Intake Total 800 ml 1940 ml 1050 ml Output Total 1015 ml 10 ml Balance 800 ml 925 ml 1040 ml Results Result Diagram: 01/05/17 0815 01/05/17 0815 NAIDA REDDY M.D. January 05, 2017 15:27
--- NOTE | 2017-01-05 16:59 | PN ---
Date/Time of Note Date/Time of Note DATE: 01/05/17 TIME: 16:54 Assessment/Plan VTE Prophylaxis VTE Prophylaxis Intervention: SCD's Lines/Catheters IV Catheter Type (from [facility]): Peripheral IV Urinary Cath still in place: No Assessment/Plan Assessment/Plan Abdominal pain Cholecystitis with chololithiasis Laparoscopic cholecystectomy with drain 01/03/2017 ERCP 12/31/2016 Small 6 mm antral gastric ulceration, benign endoscopic appearance. Normal ampulla of Vater. . Normal partially filled pancreatogram with exception of slight dilatation in the head of the pancreas. . Markedly dilated common bile duct, we no definitive stones or intraductal pathology suggestive of ampullary stricture post sphincterotomy and brushings. Post-placement of 10-[place] 7 cm stent with excellent drainage * Hx of COPD * Chronic kidney disease Plan * Stable for outpatient management * Follow up after 6-8 weeks to our clinic for evaluation and schedule for removal of ercp stent * continue present management Subjective 24 Hr Interval Summary Free Text/Dictation * Course reviewed with RN * Patient seen and examined * No abdominal pain Exam/Review of Systems Vital Signs Vitals Vital Signs Date Time Temp Pulse Resp B/P Pulse Ox O2 Delivery O2 Flow Rate FiO2 01/05/17 16:17 2.0 01/05/17 13:36 78 20 94 Nasal Cannula 28 01/05/17 07:30 98.6 117/55 Intake and Output 01/04/17 01/04/17 01/05/17 15:00 23:00 07:00 Intake Total 800 ml 1940 ml 1050 ml Output Total 1015 ml 10 ml Balance 800 ml 925 ml 1040 ml Exam Constitutional: alert, oriented Head: normocephalic Neck: non-tender, supple Respiratory: clear to auscultation, normal air movement Cardiovascular: regular rate and rhythm Gastrointestinal: nl liver, spleen, soft Musculoskeletal: nl extremities to inspection Results Result Diagram: 01/05/17 0815 01/05/17 0815 Results 24 hrs Laboratory Tests Test 01/05/17 08:15 White Blood Count 14.4 H Red Blood Count 3.41 L Hemoglobin 9.5 L Hematocrit 29.7 L Mean Corpuscular Volume 87.1 Mean Corpuscular Hemoglobin 27.9 L Mean Corpuscular Hemoglobin Concent 32.0 Red Cell Distribution Width 15.2 H Platelet Count 320 Mean Platelet Volume 10.0 Neutrophils % 69.7 Lymphocytes % 16.4 Monocytes % 8.4 Eosinophils % 2.3 Basophils % 0.3 Nucleated Red Blood Cells % 0.1 H Neutrophils # 10.0 H Lymphocytes # 2.4 Monocytes # 1.2 H Eosinophils # 0.3 Basophils # 0.0 Nucleated Red Blood Cells # 0.0 Sodium Level 134 L Potassium Level 4.6 Chloride Level 106 Carbon Dioxide Level 20 L Anion Gap 13 Blood Urea Nitrogen 13 Creatinine 1.20 H Glucose Level 113 Calcium Level 8.4 Phosphorus Level 3.5 Magnesium Level 1.9 Total Bilirubin 0.0 L Direct Bilirubin 0.00 Indirect Bilirubin 0.0 Aspartate Amino Transf (AST/SGOT) 28 Alanine Aminotransferase (ALT/SGPT) 35 Alkaline Phosphatase 160 H Total Protein 6.3 Albumin 2.8 L Globulin 3.50 H Albumin/Globulin Ratio 0.80 Medications Medications Current Medications Ciprofloxacin/ Dextrose 200 ml @ 200 mls/hr Q24H IVPB Last administered on 17:39; Admin Dose 200 MLS/HR; Start 12/29/16 at 18:30 Metronidazole (Flagyl 500 Mg (Pmx)) 100 ml @ 100 mls/hr Q8 IVPB Last administered on 01/05/17 15:00; Admin Dose 100 MLS/HR; Start 12/29/16 at 22:00 Morphine Sulfate (morphine) 2 mg Q4H PRN IV PAIN Last administered on 18:41; Admin Dose 2 MG; Start 12/29/16 at 18:30 Famotidine (Pepcid) 20 mg Q24H PO Last administered on 01/04/17 20:51; Admin Dose 20 MG; Start 12/29/16 at 21:00 Docusate Sodium (Colace) 100 mg BID PO Last administered on 01/05/17 08:57; Admin Dose 100 MG; Start 12/29/16 at 21:00 Miscellaneous Information Patients own medicat... BID@10,16 XX ; Start 12/30/16 at 10:00 Sodium Chloride (NS) 1,000 ml @ 75 mls/hr [id number] IV Last administered on 01/02 17:45; Admin Dose 75 MLS/HR; Start 12/31/16 at 09:30 Salmeterol Xinafoate/ Fluticasone (Advair 250/50 Diskus) 1 inh BID INH Last administered on 01/05/17 09:17; Admin Dose 1 INH; Start 12/31/16 at 13:00 Sumatriptan Succinate (Imitrex) 50 mg DAILY PRN PO FOR MIGRAINE.MRX1 IN 24HOUR Last administered on 01/02/17 10:49; Admin Dose 50 MG; Start 01/02/17 at 01:00 Topiramate (Topamax) 50 mg BID PO Last administered on 01/05/17 08:57; Admin Dose 50 MG; Start 01/02/17 at 21:00 Acetaminophen/ Hydrocodone Bitart ([place] (5/325)) 1 tab Q4H PRN PO PAIN LEVEL 4 -7; Start 01/03/17 at 10:30 Acetaminophen/ Hydrocodone Bitart ([place] (5/325)) 2 tab Q4H PRN PO PAIN LEVEL 7 -10; Start 01/03/17 at 10:30 Hydromorphone HCl (Dilaudid) 0.5 mg Q2H PRN IV PAIN Last administered on 11:48; Admin Dose 0.5 MG; Start 01/03/17 at 10:30 Hydromorphone HCl (Dilaudid) 1 mg Q2 PRN IV PAIN Last administered on 15:00; Admin Dose 1 MG; Start 01/03/17 at 10:30 Docusate Sodium (Colace) 100 mg BID PRN PO CONSTIPATION; Start 01/03/17 at 10: 30 Bisacodyl (Dulcolax Supp) 10 mg BID PRN HI CONSTIPATION; Start 01/03/17 at 10: 30 Sodium Biphosphate/ Sodium Phosphate (Fleet Enema) 133 ml BID PRN HI CONSTIPATION; Start 01/03/17 at 10:30 DELGADO RICHARDS MD January 05, 2017 16:59
[2017-01-05] MEDS: CIPROFLOXACIN 400MG/D5W 200 ML IVPB SCH (17:51)
[2017-01-05 19:36] VITALS: BP 94/49; RESP 20
[2017-01-05] MEDS: FAMOTIDINE 20 MG TAB PO SCH (20:19)
[2017-01-05] MEDS: HYDROCODONE/APAP (5/325) TAB PO PRN (22:33)
[2017-01-06] MEDS: HYDROCODONE/APAP (5/325) TAB PO PRN ×2 (02:38→10:58)
[2017-01-06] MEDS: HYDROmorphONE 1 MG/ML SYG IV PRN ×2 (04:31→08:33)
[2017-01-06] MEDS: metroNIDAZOLE 500 MG/NS (PMX) 100 ML IVPB SCH (05:54)
[2017-01-06 06:24] LABS: POTASSIUM 4.7 mmol/L (3.5-5.1)
[2017-01-06 06:27] LABS: CALCIUM 8.6 mg/dl (8.4-10.2); CREATININE 1.34 mg/dl (0.44-1.00); PHOSPHORUS 4.9 mg/dl (2.5-4.9)
[2017-01-06 06:28] LABS: MAGNESIUM 1.9 mg/dl (1.7-2.5)
[2017-01-06 07:45] VITALS: BP 105/47; RESP 18
[2017-01-06] MEDS: ALBUTEROL/IPRATROPIUM (NEB) 3 ML AMP HHN SCH (08:00)
[2017-01-06] MEDS: TOPIRAMATE 25 MG TAB PO SCH (08:32)
[2017-01-06] MEDS: DOCUSATE SODIUM 100 MG CAP PO SCH (08:32)
[2017-01-06] MEDS: SALMETEROL/FLUTICASONE 250/50 INHA INH SCH (08:37)
--- NOTE | 2017-01-06 09:43 | PN ---
DATE: 01/06/2017 SUBJECTIVE: The patient is stable. The patient's pain is present, but controlled. No other events noted. OBJECTIVE: VITAL SIGNS: Blood pressure 105/47, respirations 18, pulse 65, temperature 97.8. HEENT: Head is normocephalic. NECK: Supple. HEART: Regular rate. LUNGS: Show diminished breath sounds at the base. ABDOMEN: Soft, nontender to palpation. No rebound or guarding. EXTREMITIES: Negative for clubbing, cyanosis, no edema. DERMATOLOGIC: No rashes. MUSCULOSKELETAL: No joint effusions. NEUROLOGIC: No change in exam. MEDICATIONS: The patient's medications have been reviewed. LABORATORY DATA: Shows sodium 137, potassium 5.7, BUN 14, creatinine 1.34, white count 14.4, hemogl obin 9.5, hematocrit 29.7, platelet count is 320. ASSESSMENT AND PLAN: 1. Nonoliguric acute kidney injury on top of chronic kidney disease with unilateral functioning kid greg. Etiology of acute kidney injury is secondary to hemodynamics. Renal function has significantl y improved and stabilized. At this point, continue current treatment plan, supportive care, renally dose all medications. 2. Chronic kidney disease with unilateral function. Renal function is stabilized. Continue diseas e factor modification. Continue good glycemic and blood pressure control. 3. Hypernatremia, resolved. 4. Anemia. Continue to monitor hemoglobin and hematocrit levels. 5. Acute cholecystitis. The patient is status post laparoscopic cholecystectomy. Continue current medical management. Continue pain control. 6. Anemia. Continue to monitor hemoglobin and hematocrit levels. 7. Metabolic disorder. Continue to monitor calcium and phosphorus levels. 8. Gastrointestinal and deep venous thrombosis prophylaxis. Dictated By: CAMERON MONTANEZ/JOHN Conf#: [id number] DID#: [id number]
--- NOTE | 2017-01-06 14:18 | DS ---
Date/Time of Note Date/Time of Note DATE: 01/06/17 TIME: 14:16 Discharge Summary Admission/Discharge Info Admit Date/Time December 29, 2016 at 18:05 Discharge Date/Time January 06, 2017 at 12:05 Final Diagnosis See dictated discharge summary from January 05, 2017. Patient Condition: Stable Hx of Present Illness PRESENTING COMPLAINT: abd pain HISTORY OF PRESENTING COMPLAINT: This is a pleasant 61-year-old female who presents to the ER today with abdominal pain. Pain is located in the epigastric region that has been going on for the last 2 days. Pain is associated with nausea and vomiting, and described as an aching and sharp pain. Patient does have a history of gallstones and she might have a history of renal problems. Pain was relieved by medications given in the emergency room. Patient was worked up extensively by ER doctor, and findings are highly suggestive of cholelithiasis with choledocholithiasis. She is being admitted for further workup and management as well as gastroenterology as well as surgical review. Hospital Course The patient was admitted, and as mentioned above consult to obtain with surgery , GI, nephrology. The patient was supported with anti-emetics and IV pain control. She underwent an ERCP December 31, 2016 that showed a small gastric ulceration that looked benign on endoscopy, a markedly dilated common bile duct without definitive stones or intraductal pathology suggestive of ampullary stricture and is a 7 cm stent was placed in the bile duct with excellent drainage. There was a slight dilatation in the head of the pancreas. Based on this findings, brushes were sent for pathology and tumor markers were also obtained. For the tumor markers CA-[id number] came back normal as did the carcinoembryonic antigen. She was taken to the operative room by the surgeon January 03, 2017 and underwent a laparoscopic cholecystectomy. She was found to have gangrene and perforation and a drain was left in place which is to be removed today prior to discharge. Pathology findings on the distal common bile duct proved to be insufficient for evaluation around the gallbladder showed just an acute gangrenous and chronic cholecystitis without evidence of malignancy. Her renal function improved nicely while in the hospital in a state stable and her electrolytes have all been monitored and repleted as indicated. She continues to do well and was currently awaiting a surgical clearance for discharge at this time. The patient was also counseled on the need to quit tobacco use and this was reinforced daily while in-house. Comorbidities were also aggressively managed as per Med records. Patient at this time has been evaluated and examined in detail and is assessed to be in stable condition and ready for discharge. Addendum: Patient's discharge was held yesterday as she was not cleared by surgery, but she has been cleared today and remains stable for discharge in stable condition Home Meds Active Scripts Lactobacillus Acidoph/Bulgaricus* (Floranex*) 1 Each Tablet, 1 TAB.CHEW PO BID for 7 Days, TAB.CHEW Prov:MARIBELL FLYNN M. 01/05/17 Metronidazole (Flagyl) 500 Mg Tab, 500 MG PO Q8 for 7 Days, TAB Prov:GARY FLYNNO M. 01/05/17 Ciprofloxacin Hcl* (Ciprofloxacin Hcl*) 500 Mg Tablet, 500 MG PO BID, #14 TAB Prov:MARIBELL FLYNN M. 01/05/17 Docusate Sodium* (Colace*) 250 Mg Capsule, 250 MG PO DAILY, #30 CAP Prov:MARIBELL FLYNN. 01/05/17 Hydrocodone/Acetaminophen ([place] 7.5-325 Tablet) 1 Each Tablet, 1 EACH PO Q6H, # 60 TAB Prov:MARIBELL FLYNN. 01/05/17 Salmeterol Xinaf/Fluticasone* (Advair*) 250-50 Diskus Inhaler, 1 INH INH BID, # 1 VIAL 2 Refills Prov:MARIBELL FLYNN. 01/05/17 Reported Medications Promethazine Hcl* (Phenergan*) 25 Mg Tablet, 25 MG PO Q6H Y for NAUSEA AND/OR VOMITING, TAB 12/29/16 Omeprazole* (Omeprazole*) 20 Mg Capsule.dr, 20 MG PO DAILY, #30 CAP 12/29/16 Simvastatin* (Zocor*) 40 Mg Tablet, 40 MG PO QHS, #30 TAB 12/29/16 Follow-up Plan See dictated discharge summary from January 05, 2017. Primary Care Provider Jose L Lane Time spent on discharge: < 30 minutes Pending Labs Laboratory Tests Test 01/06/17 05:11 Sodium Level 137mmol/L (135-144) Potassium Level 4.7mmol/L (3.5-5.1) Chloride Level 106mmol/L (97-110) Carbon Dioxide Level 21mmol/L (21-31) Anion Gap 15 (8-16) Blood Urea Nitrogen 14mg/dl (7-20) Creatinine 1.34mg/dl (0.44-1.00) Glucose Level 90mg/dl (70-220) Calcium Level 8.6mg/dl (8.4-10.2) Phosphorus Level 4.9mg/dl (2.5-4.9) Magnesium Level 1.9mg/dl (1.7-2.5) MARIBELL FLYNN January 06, 2017 14:18
== END 2017-01-06 12:05 | disposition home or self-care (01) | DRG 853 ==
LOC: E/R 12:51 → PP2 18:05 → ICU 12-31 19:35 → MS2 01-01 16:35
PROVIDERS: ADMIT Family Medicine; ATTEND Family Medicine
PROC: 0F798DZ Dilation of Common Bile Duct with Intraluminal Device, Via Natural or Artificial Opening Endoscopic (ICD-10-PCS; 2016-12-31)
PROC: 0FBC8ZX Excision of Ampulla of Vater, Via Natural or Artificial Opening Endoscopic, Diagnostic (ICD-10-PCS; 2016-12-31)
PROC: 0FT44ZZ Resection of Gallbladder, Percutaneous Endoscopic Approach (ICD-10-PCS; principal; 2017-01-03 07:30)
DX: A41.9 Sepsis, unspecified organism (principal); K82.2 Perforation of gallbladder; N17.9 Acute kidney failure, unspecified; N18.4 Chronic kidney disease, stage 4 (severe); K25.9 Gastric ulcer, unspecified as acute or chronic, without hemorrhage or perforation; D50.9 Iron deficiency anemia, unspecified; F17.200 Nicotine dependence, unspecified, uncomplicated; K80.13 Calculus of gallbladder with acute and chronic cholecystitis with obstruction; E87.1 Hypo-osmolality and hyponatremia; J44.1 Chronic obstructive pulmonary disease with (acute) exacerbation; E83.41 Hypermagnesemia; K80.70 Calculus of gallbladder and bile duct without cholecystitis without obstruction; G43.909 Migraine, unspecified, not intractable, without status migrainosus; D63.1 Anemia in chronic kidney disease; D72.829 Elevated white blood cell count, unspecified; E83.9 Disorder of mineral metabolism, unspecified; Z88.4 Allergy status to anesthetic agent; Z88.0 Allergy status to penicillin; Z88.8 Allergy status to other drugs, medicaments and biological substances
CPT/HCPCS: 36415; 36600; 71010; 74176; 74181; 74330; 75635; 76705; 76775; 80048; 80053; 80061; 81001; 81003; 82043; 82306; 82378; 82728; 82803; 83036; 83540; 83605; 83690; 83735; 83880; 83970; 84100; 84155; 84300; 84443; 84484; 84560; 85025; 85610; 85730; 86301; 87040; 87081; 87086; 88104; 88304; 88305; 93005; 94002; 94640; 94660; 94664; 96365; 96367; 96375; 97162; C2617; J0696; J0744; J1100; J1170; J1885; J2175; J2250; J2270; J2310; J2370; J2405; J2710; J2765; J2916; J3010; J3480; J7030; J7042; J7999; Q9967

== ENCOUNTER 2017-02-02 11:00 | Outpatient (CLI) | payer MEDICARE, OTHER ==
[~2017-02-02] VITALS: Ht 152.4 cm; Wt 52.5 kg
[~2017-02-02 11:00] MED LIST: ACID1TAB14 PO; ADV25050 INH; CIPR500T4 PO; DOCU250C58 PO; HYDR-905 PO; METR500T14 PO; OMEP20CA16 PO; PROM25TA14 PO; SIMV40TA2 PO
[2017-02-02 11:17] VITALS: BP 146/78; PULSE 68; RESP 18; Ht 152.4 cm; Wt 52.5 kg
--- NOTE | 2017-02-02 11:45 | PN ---
Date/Time of Note Date/Time of Note DATE: 02/02/17 TIME: 11:33 Assessment/Plan Assessment/Plan Assessment/Plan [facility] Progress Note Date of Service: 02/02/17 Today's Impression & Plan: Overall stable and doing remarkably well given her perforated and gangrenous cholecystitis almost a month ago. I do not sense any major actionable intra- abdominal or wound issues, but I did offer the option of doing a CT scan of abd/ pelvis to further investigate. After extensive discussion and review of rational behind my thoughts, the patient and her friend felt comfortable enough to simply follow her symptoms for now and keep in touch with her primary physician (Dr. Lane). Answered all questions. With above assessment, I've recommended the following for today: 1. F/u with Dr. Lane 2. F/u with us prn 3. Advised against working as hard as she has been in the last 2 weeks 4. Consider abd/pelvis CT with IV and oral contrast if her symptoms continue or worsen Thank you again for your great care of this very pleasant patient and wonderful family. If there are any questions, please feel free to call me at [phone]. TOTAL VISIT TIME: 20 minutes of which more than half was spent in the operating room, as well as coordination of care between multiple physicians and providers. Disclaimer: Inadvertent spelling or grammatical errors are likely due to EHR/ dictation software use and do not reflect on the overall quality of patient care. Updated Clinical Summary: A very pleasant 61-year-old lady admitted through the [facility] Emergency Room on 12/29/2016 with evidence for possible acute cholecystitis as well as choledocholithiasis. S/p difficult but uncomplicated lap radha 01/03/17. Drain d/c 01/05/17. D/c January 06, 2017. COMORBIDITIES: 1. BMI 26.9. 2. Smoking history. 3. Renal insufficiency. 4. History of known cholelithiasis. 5. Status post appendectomy. 6. Status post hysterectomy. 7. S/p difficult but uncomplicated lap radha 01/03/17 for perforated gangrenous acute on chronic cholecystitis. 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 ABDOMEN: Soft, minimally tender to palpation around the sub-xiphoid incision, but not the rest, and nondistended. Incisions c/d/i w/o obvious underlying e/e/d /h. There are no peritoneal signs or guarding. SKIN: Skin appears to be pink and feels warm to touch. NEUROLOGIC: Patient is awake, alert, and follows commands appropriately. Does not appear confused Exam/Review of Systems Vital Signs Vitals Vital Signs Date Time Temp Pulse Resp B/P Pulse Ox O2 Delivery O2 Flow Rate FiO2 02/02/17 11:17 97.6 68 18 146/78 98 Room Air NAIDA REDDY M.D. Feb 02, 2017 11:45
== END 2017-02-02 16:24 | disposition home or self-care (01) ==
LOC: HPC 11:00
PROVIDERS: ATTEND Transplant Surgery
DX: Z48.815 Encounter for surgical aftercare following surgery on the digestive system (principal); M54.9 Dorsalgia, unspecified; M54.2 Cervicalgia; R51 Headache; N28.9 Disorder of kidney and ureter, unspecified; Z68.26 Body mass index [BMI] 26.0-26.9, adult; Z90.49 Acquired absence of other specified parts of digestive tract; Z90.710 Acquired absence of both cervix and uterus; Z87.891 Personal history of nicotine dependence
CPT/HCPCS: G0463

== ENCOUNTER 2018-10-26 11:34 | Emergency (ER) | payer MEDICARE, OTHER ==
[~2018-10-26] VITALS: Ht 152.4 cm; Wt 52.3 kg
[~2018-10-26 11:34] MED LIST changes: -ACID1TAB14 PO; -CIPR500T4 PO; +HYDR-4012 PO; -HYDR-905 PO; -METR500T14 PO; -PROM25TA14 PO
[2018-10-26 11:58] VITALS: Ht 152.4 cm; Wt 52.3 kg
[2018-10-26] MEDS ORDERED: BENZONATATE 100 MG CAP PO ONE (13:00)
[2018-10-26] MEDS ORDERED: AZITHROMYCIN 250 MG TAB PO ONE (13:00)
[2018-10-26] MEDS ORDERED: AZIT250T PO (13:54)
[2018-10-26] MEDS ORDERED: BENZ-6 PO (13:54)
--- NOTE | 2018-10-26 13:55 | ERD ---
ER Documentation Chief Complaint Chief Complaint CHEST PAIN; FEVER; HEADACHE X 3 DAYS HPI Patient is a 63-year-old female with hypertension who presents saying "I probably have pneumonia". The patient's of the 2 weeks ago she started with a cough with phlegm. She feels shortness of breath and feels "stuffed up". She reports subjective fevers. She tried Tylenol cold and flu. Upon review of old medical records the patient one previous visit to the ER in 2017. She says that her primary doctor is at [facility]. ROS All systems reviewed and are negative except as per history of present illness. Medications Home Meds Active Scripts Benzonatate* (Tessalon Perle*) 100 Mg Capsule, 100 MG PO Q8H PRN for COUGH for 7 Days, CAP Prov:JOVANI MORENO MD 10/26/18 Azithromycin* (Zithromax*) 250 Mg Tablet, 250 MG PO DAILY for 4 Days, TAB Prov:JOVANI MORENO MD 10/26/18 Docusate Sodium* (Colace*) 250 Mg Capsule, 250 MG PO DAILY, #30 CAP Prov:MARIBELL FLYNN. 01/05/17 Hydrocodone/Acetaminophen ([place] 7.5-325 Tablet) 1 Each Tablet, 1 EACH PO Q6H, #60 TAB Prov:MARIBELL FLYNN. 01/05/17 Salmeterol Xinaf/Fluticasone* (Advair*) 250-50 Diskus Inhaler, 1 INH INH BID, #1 VIAL 2 Refills Prov:MARIBELL FLYNN 01/05/17 Reported Medications Omeprazole* (Omeprazole*) 20 Mg Capsule.dr, 20 MG PO DAILY, #30 CAP 12/29/16 Simvastatin* (Zocor*) 40 Mg Tablet, 40 MG PO QHS, #30 TAB 12/29/16 Allergies Allergies: Coded Allergies: Penicillins (Verified Allergy, Unknown, 12/29/16) diphenhydramine (Verified Allergy, Unknown, 12/29/16) tamsulosin (Verified Allergy, Unknown, 12/29/16) PMhx/Soc History of Surgery: Yes (appendectomy,hysterectomy,) Anesthesia Reaction: No Hx Respiratory Disorders: Yes (PNA) Hx Cardiac Disorders: No Hx Psychiatric Problems: No Hx Miscellaneous Medical Probl: Yes (acute renal failure, leukocytosis,tobacco abuse,gallstone,appendectomy) Hx Alcohol Use: Yes Hx Substance Use: No Hx Tobacco Use: Yes Smoking Status: Former smoker FmHx Family History: diabetes Physical Exam Vitals Vital Signs Date Temp Pulse Resp B/P (MAP) Pulse Ox O2 O2 Flow FiO2 Time Delivery Rate 10/26/18 97.5 80 20 102/65 98 Room Air 14:42 (77) 10/26/18 97.7 99 24 140/90 98 11:58 (107) Physical Exam Const: No acute distress Head: Atraumatic Eyes: Normal Conjunctiva ENT: Normal External Ears, Nose and Mouth. Neck: Full range of motion. No meningismus. Resp: Clear to auscultation bilaterally Cardio: Regular rate and rhythm, no murmurs Abd: Soft, non tender, non distended. Normal bowel sounds Skin: No petechiae or rashes Back: No midline or flank tenderness Ext: No cyanosis, or edema Neur: Awake and alert Psych: Normal Mood and Affect Results 24 hrs Current Medications Medications Dose Sig/Michelle Start Time Status Last (Trade) Ordered Route PRN Stop Time Admin Dose Reason Admin 500 mg ONCE ONCE 10/26/18 DC 10/26/18 Azithromycin PO 13:00 13:43 (Zithromax) 10/26/18 13:01 Benzonatate 200 mg ONCE ONCE 10/26/18 DC 10/26/18 (Tessalon) PO 13:00 13:43 10/26/18 13:01 Procedures/MDM EKG read by me: Rate/Rhythm: Regular rate and rhythm at a rate of 91 Intervals: Normal Impression: No evidence of ischemia or arrhythmia Chest x-ray negative per radiology. Patient is a 63-year-old female who presents with cough with productive phlegm. The patient has no sign of pneumonia or pneumothorax on chest x-ray. I doubt pulmonary embolism or aortic dissection or acute coronary syndrome. The patient will be treated with Zithromax for 5-day course and the first dose was given in the emergency department. She also be given Zithromax. She can return for any worsening symptoms. Departure Diagnosis: Primary Impression: Bronchitis Condition: Fair Patient Instructions: Bronchitis, Antiobiotic Treatment (Adult) Referrals: Your doctor at [facility] Additional Instructions: Call your primary care doctor TOMORROW for an appointment during the next 1-2 days.See the doctor sooner or return here if your condition worsens before your appointment time. JOVANI MORENO MD Oct 26, 2018 13:55
[2018-10-26 14:42] VITALS: BP 102/65; PULSE 80; RESP 20
== END 2018-10-26 15:00 | disposition home or self-care (01) ==
LOC: E/R 11:34
DX: J40 Bronchitis, not specified as acute or chronic (principal); I10 Essential (primary) hypertension
CPT/HCPCS: 71045; 93005